=== PATIENT | male | born 1950 | race Caucasian/White ===

== ENCOUNTER 2017-01-03 12:14 | Inpatient (IN) | payer MEDICARE ==
[~2017-01-03] VITALS: Ht 190.5 cm; Wt 120.0 kg
[2017-01-03] VITALS (7 sets, daily range): BP systolic 127–164; BP diastolic 68–83; PULSE 57–75; RESP 14–20; TEMP 96.2–98.1; O2SAT 94–98
[~2017-01-03 12:14] MED LIST: ASPI81 PO; CLOP75 PO; CYCL-36 PO; FOSI10TA4 PO; LORTA5 PO
[2017-01-03] MEDS ORDERED: HYDR-3516 PO (12:40)
[2017-01-03] MEDS ORDERED: LORazepam 2 MG/ML VIAL IV PUSH ONE (13:00)
[2017-01-03 13:30] LABS: AUTOMATED NEUTROPHIL # 5.6 TH/MM3 (1.8-7.7); BASOPHIL # 0.1 TH/MM3 (0-0.2); BASOPHIL % 0.6 % (0.0-2.0); EOSINOPHIL # 0.1 TH/MM3 (0-0.4); EOSINOPHIL % 1.5 % (0.0-4.0); HEMATOCRIT 36.6 % (39.0-51.0); HEMO FLAGS DIFF FINAL; LYMPH % 22.9 % (9.0-44.0); LYMPHOCYTE # 1.9 TH/MM3 (1.0-4.8); MEAN CELL VOLUME 81.2 FL (80.0-100.0); MEAN CORPUSCULAR HEMOGLOBIN 27.3 PG (27.0-34.0); MEAN CORPUSCULAR HGB CONC 33.6 % (32.0-36.0); PLATELET COUNT 334 TH/MM3 (150-450); RED BLOOD COUNT 4.51 MIL/MM3 (4.50-5.90); RED CELL DISTRIBUTION WIDTH 16.1 % (11.6-17.2); WHITE BLOOD COUNT 8.2 TH/MM3 (4.0-11.0)
[2017-01-03 13:40] LABS: APTT (PATIENT) 32.7 SEC (24.3-30.1); PROTHROMBIN TIME - PATIENT 11.2 SEC (9.8-11.6)
--- NOTE | 2017-01-03 13:41 | RADRPT ---
EXAM DATE/TIME: 01/03/2017 12:56 [facility] COMPARISON: No previous studies available for comparison. INDICATIONS : Cough. MEDICAL HISTORY : Carcinoma, renal SURGICAL HISTORY : Coronary artery stent. ENCOUNTER: Initial ACUITY: 1 day PAIN SCORE: 0/10 LOCATION: Bilateral chest FINDINGS: A single AP erect portable view of the chest was obtained and demonstrates a focal masslike area of o pacity in the right cardiophrenic angle. The heart size at the upper limits of normal with no perihil ar edema. The lungs are clear. There is no evidence of an effusion. The bony thorax is otherwise inta ct. CONCLUSION: Focal masslike area of opacity in the right cardiophrenic angle which is nonspecific but may represent a cardiac fat pad. Other mass lesions are not excluded. This could be further evalu ated with CT. Darryl Andre MD on January 03, 2017 at 13:34 Board Certified Radiologist. This report was verified electronically.
[2017-01-03 13:47] LABS: BICARBONATE 29.4 MEQ/L (21.0-32.0); MAGNESIUM 2.3 MG/DL (1.5-2.5); POTASSIUM 4.6 MEQ/L (3.5-5.1)
--- NOTE | 2017-01-03 14:02 | PD ---
HPI Chief Complaint: Eye Problems/Injury Time Seen by Provider: 13:56 Travel History International Travel<30 days: No Contact w/Intl Traveler<30days: No Traveled to known affect area: No History of Present Illness HPI 66-year-old male that presents to the ED for evaluation of blurry vision for the past week. Per patient he is actually had issues with his patient for longer but he hasn't had any severe issues until the past week. Apparently this in ongoing for a couple months but for the past week he's been developing more blurry vision where he states that he cannot really read much. Per patient yesterday history noticing that he could not see from his peripheral vision on the right side on the right eye. He states that he never noted this until yesterday when he had someone next to him and his peripheral site talking to him but he cannot see him and this is when he relies he didn't have any peripheral vision. He states that he has no headache or chest pain. 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 Per patient he is doing homeopathic treatment at this time. He denies taking any blood thinners. He denies any other medical problems. No chest pain or shortness of breath. He has not seen his doctor for this. He does wear glasses any glasses he still has the blurry vision. Today he had an episode where he could not stop shaking on his left side. Mainly on the left arm and leg. He denies losing consciousness or having any urinary or bowel movement issues. Per patient he lasted almost an hour. He is never had anything like that before. No history of seizures. Per patient at today he does have a slight headache that feels like a tension that is about 4 out of 10. Allergy to Lipitor. He denies any recent eye surgery. No other medical problems. Per family member patient does have unsteady gait. PFSH Past Medical History Blood Disorders: No Cancer: Yes (kidney and lung) Cardiovascular Problems: Yes (CAD) High Cholesterol: Yes Diabetes: No Diminished Hearing: No Endocrine: No Hiatal Hernia: Yes Hypertension: Yes Immune Disorder: No Tetanus Vaccination: > 5 Years Past Surgical History Cardiac Surgery: Yes (stents) Neurologic Surgery: Yes (1 kidney r/t ca) Other Surgery: Yes (L SHOULDER) Family History Family Myocardial Infarction: Yes (father IA at age 48) Social History Alcohol Use: Yes (social) Tobacco Use: No Substance Use: No Allergies-Medications (Allergen,Severity, Reaction): Coded Allergies: Lipitor (Verified Allergy, Unknown, 01/03/17) Reported Meds & Prescriptions Reported Meds & Active Scripts Active Reported Hydrocodone-Acetaminophen 5-325 mg Tab 1 Tab PO Q4H PRN Review of Systems General / Constitutional: No: Fever, Chills, Weight Gain, Weight Loss, Other Eyes: Positive: Blurred Vision, Blind Spots, Visual changes, No: Diploplia, Photophobia, Drainage, Redness, Foreign Body Sensation, Pain, Tearing, Blindness , Other HENT: Positive: Headaches, No: Vertigo, Lightheadedness, Sore Throat, Rhinitis , Rhinorrhea, Congestion, Nosebleed, Neck Stiffness, Neck Pain, Masses, Gingival Bleeding, Dental Difficulties, Ear Discharge, Earache, Other Cardiovascular: No: Chest Pain or Discomfort, Palpitations, Irregular Rhythm, Tachycardia, Diaphoresis, Syncope, Dyspnea on exertion, Varicosities, Edema, Cyanosis, Varicosities, Phlebitis, Claudication, Other Respiratory: No: Cough, Shortness of Breath, Wheezing, Sneezing, Orthopnea, Hemoptysis, Stridor, Night Sweats, Pleuritic Pain, Other Gastrointestinal: No: Nausea, Vomiting, Diarrhea, Abdominal Pain, Hematemesis, Hematochezia, Constipation, Changes in Bowel Habits, Indigestion, Dysphagia, Loss of Appetite, Other Genitourinary: No: Urgency, Frequency, Dysuria, Nocturia, Hematuria, Decreased Urinary Output, Oliguria, Hesitancy, Dribbling, Incontinence, Pelvic Pain, Flank Pain, Dyspareunia, Discharge, Dysmenorrhea, Menorrhagia, Metorrhagia, Vaginal Bleeding, Other Musculoskeletal: No: Myalgias, Arthralgias, Limited ROM, Weakness, Cramping, Edema, Pain, Atrophy, Other Skin: No Rash, No Itching, No Dryness, No Lumps, No Hives, No Change in Pigmentation, No Change in nails, No Alopecia, No Lesions, No Breast Lumps, No Breast Tenderness, No Breast Swelling, No Other Neurologic: Positive: Tremor, Ataxia, No: Weakness, Dizziness, Syncope, Focal Abnormalities, Coordination Problem, Headache, Change in Mentation, Slurred Speech, Paresthesia, Incontinence, Seizures, Sensory Disturbance, Other Psychiatric: No: Anxiety, Depression, Suicidal Ideations, Disorder of Thought, Mood Disorder, Substance Abuse, Homicidal Ideation, Other Endocrine: No: Heat Intolerance, Cold Intolerance, Polyuria, Polydipsia, Other Hematologic/Lymphatic: No: Easy Bruising, Lymph Node Enlargement, Other Physical Exam Narrative GENERAL: SKIN: Warm and dry. HEAD: Atraumatic. Normocephalic. EYES: Pupils equal and round 4 mm reactive to light and accommodation.. No scleral icterus. No injection or drainage. EOM intact bilaterally. Patient does have loss of peripheral vision on the right eye noted on the right side. Both upper and lower fry. No tenting noted on the left eye. Ophthalmic exam reveals no sign of upper edema or vessel disease. ENT: No nasal bleeding or discharge. Mucous membranes pink and moist. Tongue is midline. No uvula deviation. NECK: Trachea midline. No JVD. CARDIOVASCULAR: Regular rate and rhythm. No murmurs, S3, S4. RESPIRATORY: No accessory muscle use. Clear to auscultation. Breath sounds equal bilaterally. GASTROINTESTINAL: Abdomen soft, non-tender, nondistended. Hepatic and splenic margins not palpable. MUSCULOSKELETAL: Extremities without clubbing, cyanosis, or edema. No obvious deformities. Patient has full range of motion of the upper extremities. 2+ pulses bilaterally. 5 out of 5 strength bilaterally. Sensation intact bilaterally. NEUROLOGICAL: Awake and alert. No obvious cranial nerve deficits. Motor grossly within normal limits. Five out of 5 muscle strength in the arms and legs. Normal speech. Finger to nose test negative. PSYCHIATRIC: Appropriate mood and affect; insight and judgment normal. Data Data Last Documented VS Vital Signs Date Time Temp Pulse Resp B/P Pulse Ox O2 Delivery O2 Flow Rate FiO2 01/03/17 15:01 57 20 164/83 98 01/03/17 13:48 Room Air 01/03/17 12:16 98.1 Orders Mri Brain W&W/O Contrast (01/03/17 12:59) Complete Blood Count With Diff (01/03/17 12:59) Basic Metabolic Panel (Bmp) (01/03/17 12:59) Prothrombin Time / Inr (Pt) (01/03/17 12:59) Act Partial Throm Time (Ptt) (01/03/17 12:59) Magnesium (Mg) (01/03/17 12:59) Chest, Single Ap (01/03/17 12:59) Iv Access Insert/Monitor (01/03/17 12:59) Ecg Monitoring (01/03/17 12:59) Oximetry (01/03/17 12:59) Lorazepam Inj (Ativan Inj) (01/03/17 13:00) Mra Brain W/O Contrast (Cow) (01/03/17 ) Gadodiamide Pf Inj (Omniscan Pf Inj) (01/03/17 15:10) Consult Medical Oncology (01/03/17 ) Consult Radiation Oncology (01/03/17 ) Dexamethasone Inj (Decadron Inj) (01/03/17 15:45) Levetiracetam 1000 Mg Inj (Keppra 1000 M (01/03/17 15:45) Admit Order (Ed Use Only) (01/03/17 15:50) Labs Laboratory Tests Test 01/03/17 13:00 White Blood Count 8.2 TH/MM3 Red Blood Count 4.51 MIL/MM3 Hemoglobin 12.3 GM/DL Hematocrit 36.6 % Mean Corpuscular Volume 81.2 FL Mean Corpuscular Hemoglobin 27.3 PG Mean Corpuscular Hemoglobin 33.6 % Concent Red Cell Distribution Width 16.1 % Platelet Count 334 TH/MM3 Mean Platelet Volume 6.4 FL Neutrophils (%) (Auto) 68.0 % Lymphocytes (%) (Auto) 22.9 % Monocytes (%) (Auto) 7.0 % Eosinophils (%) (Auto) 1.5 % Basophils (%) (Auto) 0.6 % Neutrophils # (Auto) 5.6 TH/MM3 Lymphocytes # (Auto) 1.9 TH/MM3 Monocytes # (Auto) 0.6 TH/MM3 Eosinophils # (Auto) 0.1 TH/MM3 Basophils # (Auto) 0.1 TH/MM3 CBC Comment DIFF FINAL Differential Comment Prothrombin Time 11.2 SEC Prothromb Time International 1.0 RATIO Ratio Activated Partial 32.7 SEC Thromboplast Time Sodium Level 137 MEQ/L Potassium Level 4.6 MEQ/L Chloride Level 102 MEQ/L Carbon Dioxide Level 29.4 MEQ/L Anion Gap 6 MEQ/L Blood Urea Nitrogen 16 MG/DL Creatinine 1.41 MG/DL Estimat Glomerular Filtration 50 ML/MIN Rate Random Glucose 98 MG/DL Calcium Level 9.2 MG/DL Magnesium Level 2.3 MG/DL MDM Medical Decision Making Medical Screen Exam Complete: Yes Emergency Medical Condition: Yes Medical Record Reviewed: Yes Interpretation(s) CBC & BMP Diagram 01/03/17 13:00 Last Impressions Chest X-Ray 01/03/17 1259 Signed Impressions: Service Date/Time: Tuesday, January 03, 2017 12:56 - CONCLUSION: Focal masslike area of opacity in the right cardiophrenic angle which is nonspecific but may represent a cardiac fat pad. Other mass lesions are not excluded. This could be further evaluated with CT. Darryl Andre MD Brain MRI 01/03/17 1259 Signed Impressions: Service Date/Time: Tuesday, January 03, 2017 14:23 - CONCLUSION: 4 metastatic lesions as described. Darryl Andre MD Head Magnetic Resonance Angiography 01/03/17 0000 Signed Impressions: Service Date/Time: Tuesday, January 03, 2017 14:23 - CONCLUSION: 1. Negative examination. Ciaran Hassan MD Differential Diagnosis Metastasis versus brain tumor versus stroke versus peripheral vision loss versus ophthalmic disease versus seizure versus tremor versus cancer versus electron abnormality Narrative Course 66-year-old male that presents to the ED for evaluation of blurry vision and tremor. Patient was properly examined and was found to have signs and symptoms which appear to be concerning for metastases to the brain causing the blurry vision. Case was discussed in my attending who agrees with plan. MRI is recommended. Labs were drawn. Patient was given Ativan before going to MRI secondary to claustrophobia. Labs and imaging showed for metastases to the brain. Case was discussed in my attending who came with me and evaluated the patient and recommends admission for oncology workup. This was discussed with the family and patient both agree with this admission. Residents were paged and they agreed to admission. Dr. Watson was also contacted by my attending. Procedures EKG Prior to Arrival: No Diagnosis Primary Impression: Brain metastasis Additional Impression: Seizure disorder Admitting Information Admitting Physician Requests: Admit Emiliano Wilson Jan 03, 2017 14:02
[2017-01-03] MEDS ORDERED: GADODIAMIDE PF 287 MG/ML 20 ML VIAL (for RAD MRI) IV ONE (15:10)
--- NOTE | 2017-01-03 15:12 | RADRPT ---
EXAM DATE/TIME: 01/03/2017 14:23 [facility] COMPARISON: No previous studies available for comparison. INDICATIONS : Left arm jerking. Blurry vision. MEDICAL HISTORY : Hypertension. Metastatic, lung. Renal ca. SURGICAL HISTORY : Nephrectomy, left. Rotator cuff surgery. ENCOUNTER: Initial ACUITY: 3 day PAIN SCORE: 0/10 LOCATION: head Please note a normal MRA of the brain does not entirely exclude the possibility of a small aneurysm, nor the possibility of distal intracranial vessel disease. TECHNIQUE: 3D time of flight MRA was performed. Source images, multiplanar STS MIP, and 3D volume MIP reconstru ctions were reviewed. FINDINGS: There is excellent visualization of the major intracranial arteries out to the second-order branch ve ssels. There is no evidence for aneurysm, vessel truncation or stenosis, and no evidence for vascula r malformation. CONCLUSION: 1. Negative examination. Ciaran Hassan MD on January 03, 2017 at 15:09 Board Certified Radiologist. This report was verified electronically.
--- NOTE | 2017-01-03 15:36 | RADRPT ---
EXAM DATE/TIME: 01/03/2017 14:23 [facility] COMPARISON: CHEST SINGLE AP, January 03, 2017, 12:56. INDICATIONS : Left arm jerking. Blurry vision. CONTRAST: 20 cc Omniscan (gadodiamide) IV MEDICAL HISTORY : Metastatic disease. Hypertension. Renal cell carcinoma. SURGICAL HISTORY : Nephrectomy, left. Rotator cuff surgery. ENCOUNTER: Initial ACUITY: 2 day PAIN SCORE: 0/10 LOCATION: head TECHNIQUE: Multiplanar, multisequence MRI of the brain was performed both prior to and following the administrat ion of paramagnetic contrast. FINDINGS: CEREBRUM: The ventricles are normal for age. There is no evidence of midline shift or hemorrhage. There are 4 r ing-enhancing masses present. The largest is in the lower left occipital lobe and measures up to appr oximately 2.4 x 1.6 cm in diameter with moderate surrounding edema. There 2 smaller ring-enhancing ma sses one in each frontal lobe. These measure approximately 10 x 8 mm on the left and 3 x 4 mm on the right. There is mild surrounding edema. The fourth lesion is located in the high posterior parietal l obe and measures approximately 7 x 6 mm. No extraaxial fluid collections are seen. The pituitary gla nd and suprasellar cistern are normal in configuration. WHITE MATTER: High signal edema is noted surrounding the metastatic lesions. POSTERIOR FOSSA: The cerebellum and brainstem are intact. The 4th ventricle is midline. The cerebellopontine angle is unremarkable. The cerebellar tonsils are normal in position. DIFFUSION IMAGING: No focal areas of restricted diffusion are seen. No evidence of acute infarction. EXTRACRANIAL: The visualized portions of the orbits and paranasal sinuses are unremarkable. POST-CONTRAST: No abnormal areas of parenchymal or dural enhancement. No evidence of blood-brain barrier breakdown. CONCLUSION: 4 metastatic lesions as described. Darryl Andre MD on January 03, 2017 at 15:29 Board Certified Radiologist. This report was verified electronically.
[2017-01-03] MEDS ORDERED: levETIRAcetam 1000 MG INJ 100 ML IV ONE (15:45)
[2017-01-03] MEDS ORDERED: DEXAMETHASONE SOD PHOS 20 MG/5 ML VIAL IV PUSH ONE (15:45)
--- NOTE | 2017-01-03 15:50 | PD ---
Data Data Last Documented VS Vital Signs Date Time Temp Pulse Resp B/P Pulse Ox O2 Delivery O2 Flow Rate FiO2 01/03/17 15:01 57 20 164/83 98 01/03/17 13:48 Room Air 01/03/17 12:16 98.1 Orders Mri Brain W&W/O Contrast (01/03/17 12:59) Complete Blood Count With Diff (01/03/17 12:59) Basic Metabolic Panel (Bmp) (01/03/17 12:59) Prothrombin Time / Inr (Pt) (01/03/17 12:59) Act Partial Throm Time (Ptt) (01/03/17 12:59) Magnesium (Mg) (01/03/17 12:59) Chest, Single Ap (01/03/17 12:59) Iv Access Insert/Monitor (01/03/17 12:59) Ecg Monitoring (01/03/17 12:59) Oximetry (01/03/17 12:59) Lorazepam Inj (Ativan Inj) (01/03/17 13:00) Mra Brain W/O Contrast (Cow) (01/03/17 ) Gadodiamide Pf Inj (Omniscan Pf Inj) (01/03/17 15:10) Consult Medical Oncology (01/03/17 ) Consult Radiation Oncology (01/03/17 ) Dexamethasone Inj (Decadron Inj) (01/03/17 15:45) Levetiracetam 1000 Mg Inj (Keppra 1000 M (01/03/17 15:45) Labs Laboratory Tests Test 01/03/17 13:00 White Blood Count 8.2 TH/MM3 Red Blood Count 4.51 MIL/MM3 Hemoglobin 12.3 GM/DL Hematocrit 36.6 % Mean Corpuscular Volume 81.2 FL Mean Corpuscular Hemoglobin 27.3 PG Mean Corpuscular Hemoglobin 33.6 % Concent Red Cell Distribution Width 16.1 % Platelet Count 334 TH/MM3 Mean Platelet Volume 6.4 FL Neutrophils (%) (Auto) 68.0 % Lymphocytes (%) (Auto) 22.9 % Monocytes (%) (Auto) 7.0 % Eosinophils (%) (Auto) 1.5 % Basophils (%) (Auto) 0.6 % Neutrophils # (Auto) 5.6 TH/MM3 Lymphocytes # (Auto) 1.9 TH/MM3 Monocytes # (Auto) 0.6 TH/MM3 Eosinophils # (Auto) 0.1 TH/MM3 Basophils # (Auto) 0.1 TH/MM3 CBC Comment DIFF FINAL Differential Comment Prothrombin Time 11.2 SEC Prothromb Time International 1.0 RATIO Ratio Activated Partial 32.7 SEC Thromboplast Time Sodium Level 137 MEQ/L Potassium Level 4.6 MEQ/L Chloride Level 102 MEQ/L Carbon Dioxide Level 29.4 MEQ/L Anion Gap 6 MEQ/L Blood Urea Nitrogen 16 MG/DL Creatinine 1.41 MG/DL Estimat Glomerular Filtration 50 ML/MIN Rate Random Glucose 98 MG/DL Calcium Level 9.2 MG/DL Magnesium Level 2.3 MG/DL MDM Supervised Visit with YOUSUF: Yes Narrative Course I, Dr. Oliver, have reviewed the advance practice practioner's documentation and am in agreement, met with the patient face to face, made the diagnosis, and the medical decision making was done by me. *My assessment and Findings: 66-year-old male with history of renal adenocarcinoma with metastases to the lung not undergoing any treatment here with neuro symptoms, right sided visual field loss and questionable seizure activity this morning. Patient describes a minute long spell with a left-sided his body was uncontrollably shaking in a rhythmic type fashion. Patient was conscious for this. No history of seizures. On neurologic examination patient has a right lateral hemianopsia. Otherwise neuro intact. Exam and symptoms are very concerning for intracranial metastases, with focal seizure. Laboratory workup unremarkable. Chest x-ray negative. Unfortunately the MRI and MRA of the brain showed multiple intracranial metastases with surrounding edema. These are likely the cause of patient's symptoms. He was given 1 g of Keppra, 10 mg Decadron. I spoke with Sam Maurice, and residents for admission and further management. Lucrecia Oliver MD Jan 03, 2017 15:50
--- NOTE | 2017-01-03 16:26 | HHI.HP ---
[facility] Service Family Medicine Primary Care Physician Esther Forrester MD Admission Diagnosis intracranial metastases with focal seizure Diagnoses: International Travel<30 Days: No Contact w/Intl Traveler<30days: No Known Affected Area: No History of Present Illness Pt is a 66 year old male with history of renal cell carcinoma with known lung metastasis, presenting due to visual changes. Pt reports that he has been having visual changes for over 6 months. Over the past week his vision has been becoming progressively worse, his vision has becoming more blurry and he is unable to see peripherally from his right eye.This morning he experienced a seizure and had rhythmic jerking of his left upper and lower extremities. This lasted for less than one minute. He denies loss of bowel or bladder incontinence, confusion. He was able to walk normally following seizure. He was diagnosed with renal cell carcinoma about 3 years in 6 months ago. He had his left kidney removed 3 years ago. After kidney was removed he was found to have lung metastasis. He is currently being followed by Dr. Cardoso, oncology, Dr. Weiss, rheumatology, Dr. Nguyen, radiation oncology. He has also been seeing a homeopathic doctor. He is interested in learning about all available treatment options. (Vero De La Garza MD R2) Review of Systems Constitutional: DENIES: Fever, Chills Eyes: COMPLAINS OF: Blurred vision Respiratory: DENIES: Cough Gastrointestinal: COMPLAINS OF: Constipation, DENIES: Abdominal pain, Diarrhea , Nausea, Vomiting Musculoskeletal: DENIES: Joint pain, Muscle aches Neurologic: COMPLAINS OF: Headache, Seizures Psychiatric: DENIES: Confusion (Vero De La Garza MD R2) Past Family Social History Past Medical History Renal Cell Carcinoma Was previously on high cholesterol medication and antihypertensives, but was taken off Past Surgical History Left nephrectomy Left rotator cough surgery Cardiac stents place on 2 occasions, 4-5 stents Reported Medications Reported Meds & Active Scripts Active Reported Hydrocodone-Acetaminophen 5-325 mg Tab 1 Tab PO Q4H PRN (Vero De La Garza MD R2) Allergies: Coded Allergies: Lipitor (Verified Allergy, Unknown, 01/03/17) Active Ordered Medications Inpatient Medications Acetaminophen/ Hydrocodone Bitart (Joppa 5-325 Mg) 1 tab Q4H PRN PO PAIN; Start 01/03/17 at 17:00 Dexamethasone Sodium Phosphate 10 mg 10 mg ONCE ONCE IV PUSH Last administered on 01/03/17 16:02; Start 01/03/17 at 15:45; Stop 01/03/17 at 15:46 ; Status DC Levetriacetam (Keppra 1000 Mg Inj) 100 ml @ 400 mls/hr BOLUS ONCE IV Last administered on 01/03/17 16:13; Start 01/03/17 at 15:45; Stop 01/03/17 at 15:59 ; Status DC Lorazepam (Ativan Inj) 2 mg ONCE ONCE IV PUSH Last administered on 01/03/17 14:15; Start 01/03/17 at 13:00; Stop 01/03/17 at 13:03; Status DC Family History Mother: Late 70s, Alzheimer's Father: at 48, [place] Social History 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 SKIN: No rashes, ecchymoses or lesions. Cool and dry. HEAD: Atraumatic. Normocephalic. No temporal or scalp tenderness. EYES: Pupils equal round and reactive. Extraocular motions intact. No scleral icterus. No injection or drainage. ENT: Nose without bleeding, purulent drainage or septal hematoma. Throat without erythema, tonsillar hypertrophy or exudate. Uvula midline. Airway patent. NECK: Trachea midline. No JVD or lymphadenopathy. Supple, nontender, no meningeal signs. CARDIOVASCULAR: Regular rate and rhythm without murmurs, gallops, or rubs. RESPIRATORY: Clear to auscultation. Breath sounds equal bilaterally. No wheezes , rales, or rhonchi. GASTROINTESTINAL: Abdomen soft, non-tender, nondistended. No hepato-splenomegaly , or palpable masses. No guarding. MUSCULOSKELETAL: Extremities without clubbing, cyanosis, or edema. No joint tenderness, effusion, or edema noted. No calf tenderness. Negative Homans sign bilaterally. NEUROLOGICAL: Awake and alert. Right hemianopsia. Motor and sensory grossly within normal limits. 5 out of 5 strength of right upper extremity, 4 out of 5 strength of left upper extremity, 4 out of 5 strength of left lower extremity. Normal speech. Patient is with decreased hearing bilaterally Laboratory Laboratory Tests Test 01/03/17 13:00 White Blood Count 8.2 Red Blood Count 4.51 Hemoglobin 12.3 Hematocrit 36.6 Mean Corpuscular Volume 81.2 Mean Corpuscular Hemoglobin 27.3 Mean Corpuscular Hemoglobin 33.6 Concent Red Cell Distribution Width 16.1 Platelet Count 334 Mean Platelet Volume 6.4 Neutrophils (%) (Auto) 68.0 Lymphocytes (%) (Auto) 22.9 Monocytes (%) (Auto) 7.0 Eosinophils (%) (Auto) 1.5 Basophils (%) (Auto) 0.6 Neutrophils # (Auto) 5.6 Lymphocytes # (Auto) 1.9 Monocytes # (Auto) 0.6 Eosinophils # (Auto) 0.1 Basophils # (Auto) 0.1 CBC Comment DIFF FINAL Differential Comment Prothrombin Time 11.2 Prothromb Time International 1.0 Ratio Activated Partial 32.7 Thromboplast Time Sodium Level 137 Potassium Level 4.6 Chloride Level 102 Carbon Dioxide Level 29.4 Anion Gap 6 Blood Urea Nitrogen 16 Creatinine 1.41 Estimat Glomerular Filtration 50 Rate Random Glucose 98 Calcium Level 9.2 Magnesium Level 2.3 (Vero De La Garza MD R2) Result Diagram: 01/03/17 1300 01/03/17 1300 Imaging Last 24 hours Impressions Chest X-Ray 01/03/17 1259 Signed Impressions: Service Date/Time: Tuesday, January 03, 2017 12:56 - CONCLUSION: Focal masslike area of opacity in the right cardiophrenic angle which is nonspecific but may represent a cardiac fat pad. Other mass lesions are not excluded. This could be further evaluated with CT. Darryl Andre MD Brain MRI 01/03/17 1259 Signed Impressions: Service Date/Time: Tuesday, January 03, 2017 14:23 - CONCLUSION: 4 metastatic lesions as described. Darryl Andre MD Head Magnetic Resonance Angiography 01/03/17 0000 Signed Impressions: Service Date/Time: [place], January 03, 2017 14:23 - CONCLUSION: 1. Negative examination. Ciaran Hassan MD (Vero De La Garza MD R2) Assessment and Plan Assessment and Plan Pt is a 66 year old male with history of renal cell carcinoma with known lung metastasis, presenting due to visual changes. Code Status Full Discussed Condition With wdw Dr. Bonner, Dr. Fraire, Dr. Lyons (Vero De La Garza MD R2) Attending Attestation The patient has been seen and examined. The chart and all resident notes have been reviewed. I agree that inpatient care is appropriate and that a two midnight stay is expected for the reasons documented in the resident history and physical. I have discussed this with the resident and certify the resident s order for inpatient admission. All systems reviewed and negative except as stated in history of present illness. (Cheryl Bonner MD) Problem List: (1) Brain metastasis Status: Acute Plan: Patient with history of renal cell carcinoma with known lung metastasis, now found to have brain metastasis. -Nathan MRI shows 4 metastatic lesions -Patient received 10 mg of Decadron in the ED -4 mg of Decadron IV Q6hrs -Oncology, radiation oncology, palliative care has been consulted, appreciate recommendations Imaging: Brain MRI: Four metastatic lesions: The largest in the lower left occipital lobe measures 2.41.6 cm with moderate turning edema. 2 smaller lesions in the frontal lobe measuring 10 x 8 mm and 3 x 4 mm with mild surrounding edema. The fourth lesion is located in the parietal lobe and is 4 x 6 mm. Head MRA 01/03/17: Negative examination (2) Seizure disorder Status: Acute Plan: Patient reports having a seizure earlier today, he has no history of seizure disorder. Likely due to newly diagnosed metastatic lesions to the brain and surrounding edema. -Patient was given Keppra 1000 mg IV x1 in the ED -Neurology has been consulted, appreciate recommendations -Will start Keppra 500mg po BID -Seizure precautions -Neuro checks Q4hrs -EEG ordered (3) FEN/PPX Status: Acute Plan: Fluids: None Electrolytes: Within normal limits, continue to monitor Nutrition: Regular diet (4) Contraindication to deep vein thrombosis (DVT) prophylaxis Status: Acute Plan: DVT prophylaxis contraindicated due to metastatic brain lesions having high likelihood of bleeding, per pts Oncologist. (Vero De La Garza MD R2) Physician Certification 2 Midnight Certification Type: Admission for Inpatient Services Order for Inpatient Services The services are ordered in accordance with Medicare regulations or non- Medicare payer requirements, as applicable. In the case of services not specified as inpatient-only, they are appropriately provided as inpatient services in accordance with the 2-midnight benchmark. Estimated LOS (days): 2 2 days is the estimated time the patient will need to remain in the hospital, assuming treatment plan goals are met and no additional complications. Post-Hospital Plan: Not yet determined (Vero De La Garza MD R2) Vero De La Garza MD R2 Jan 03, 2017 16:26 Cheryl Bonner MD Jan 04, 2017 16:25
[2017-01-03] MEDS ORDERED: ONDANSETRON HCL 4 MG/2 ML VIAL IV PRN (17:00)
[2017-01-03] MEDS ORDERED: SODIUM CHLORIDE 0.9% FLUSH 5 ML FLUSH IVF PRN (17:00)
[2017-01-03] MEDS ORDERED: cloNIDine HCL 0.1 MG TAB PO PRN (17:30)
[2017-01-03] MEDS ORDERED: hydrALAZINE HCL 20 MG/ML VIAL IV PRN (17:30)
[2017-01-03] MEDS ORDERED: LORazepam 2 MG/ML VIAL IV PRN (17:30)
[2017-01-03] MEDS: SODIUM CHLORIDE 0.9% FLUSH 5 ML FLUSH IVF SCH (21:00)
[2017-01-04] MEDS: DEXAMETHASONE SOD PHOS 4 MG/ML VIAL IV PUSH SCH ×4 (02:42→16:37)
[2017-01-04 02:44] VITALS: BP 131/75; PULSE 69; RESP 16; TEMP 96.1; O2SAT 93
[2017-01-04 04:00] VITALS: BP 130/73; PULSE 68; RESP 15; TEMP 95.9; O2SAT 94
--- NOTE | 2017-01-04 05:54 | MB ---
cc: DANYELLE MARIE MD, VIVIANE M. MD DATE OF CONSULTATION 01/03/2017. PRIMARY CARE PHYSICIAN Dr. Esther Forrester ONCOLOGIC DIAGNOSIS Metastatic renal cell carcinoma. REASON FOR CONSULTATION Patient with newly discovered multiple brain masses most consistent with metastatic renal cell carcinoma. TREATMENT HISTORY TO DATE 1. Initial diagnosis established in August of 2013. 2. Underwent a radical nephrectomy in December of 2013. 3. He has had evidence of progressive metastatic disease to the lungs. He declined systemic therapy. CURRENT DISEASE STATUS: Clinical / PATHOLOGIC STAGE: T3a Nx M1, Stage IV CHIEF COMPLAINT One week history of difficulty reading due to visual field deficit; blindness along the right lateral visual field. HISTORY OF PRESENT ILLNESS Mr. Kaminski is a 66-year-old male who is well-known to me since his initial referral to mt in 2012. He was initially referred to mt for evaluation of a microcytic anemia. Extensive evaluation including bone marrow biopsy revealed pathologic findings concerning for a myeloproliferative neoplasm. Further workup including imaging studies of the abdomen revealed a mass involving the left kidney. The patient subsequently underwent surgical resection of a renal mass which turned out to be a renal cell carcinoma. When the renal mass was removed, his microcytic anemia resolved. Since undergoing surgery, he has undergone serial restaging imaging scans which have revealed progressive enlargement of pulmonary nodules which, though not biopsied, are consistent with metastatic disease. The patient has been recommended palliative systemic therapy with Votrient but has declined in favor of observation. The patient has, however, been seeking out alternative medicine practitioners and had been on various treatments including holistic medicine and homeopathic medicines. He was last seen by me three or four months ago and at the time he was found to have an enlarging mass involving his right lung abutting his right heart. He was recommended palliative radiation but I think he declined that as well. He called my office earlier this morning reporting neurologic deficits and in particular visual field deficit and was advised to come in to the emergency department. Imaging studies performed revealed multiple brain lesions associated with vasogenic edema, the lesions involving the left occipital lobe, frontal lobe and right tubal cortex. PAST MEDICAL HISTORY 1. Metastatic renal cell carcinoma. 2. Hypertension. 3. Coronary artery disease. 4. Gastroesophageal reflux disease. 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 6. Spinal stenosis. 7. Osteoarthritis. PAST SURGICAL HISTORY 1. Bone marrow biopsy and aspiration. 2. Colonoscopy. 3. EGD. 4. Intracoronary stent placement 5. Left rotator cuff surgery. 6. Left radical nephrectomy. 7. Arterial embolization of the left kidney prior to resection. FAMILY HISTORY Parents are both . Father at 48 of coronary artery disease. Mother at the age of 85 of unknown cause. SOCIAL HISTORY The patient , lives at home with his . 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 He is a Yazidism. He denies tobacco, alcohol or drug abuse. ALLERGIES LIPITOR. INPATIENT MEDICATIONS 1. Keppra 500 mg p.o. q. 12 hours. 2. Dexamethasone 4 mg IV q. 6 hours. 3. Hydrocodone/Tylenol 5/325 mg tablet once every 4 hours. 4. Zofran 4 mg IV q. 6 hours. 5. Ativan 10 mg IV q. 2 hours as needed for seizure. REVIEW OF SYSTEMS A 13-point review of systems are obtained. The following are the pertinent positives: Constitutional: The patient reports having had recent fatigue, reports appetite has been good, denies fevers, chills or night sweats. HEENT: He denies headaches. Reports visual field loss along the right lateral visual field. Denies difficulty swallowing, hemoptysis, epistaxis or changes in hearing. Respiratory: Denies difficulty breathing, cough or hemoptysis. Cardiovascular: Denies angina-like chest pain, PND, orthopnea GI: Denies nausea, vomiting, diarrhea, hematochezia, melena. : No complaints. Musculoskeletal: No complaints. PHYSICAL EXAMINATION Vital Signs: Temperature 98.1 degrees Fahrenheit, heart rate 69 beats/minute, respiratory rate 20, blood pressure 132/74, O2 sats 97% on room air. General Appearance: Mr. Kaminski is a pleasant middle-aged male. He is tall and heavy-set. He is sitting up in bed. He appears to be somewhat drowsy. His is at bedside. HEENT: Head atraumatic, normocephalic, conjunctivae are mildly pale. Sclerae anicteric. EOMI, PERRLA. Oral exam - no pharyngeal erythema. Neck Exam: No palpable cervical or supraclavicular adenopathy. Respiratory Exam: There is air movement bilaterally. Clear breath sounds. Cardiovascular Exam: Regular rate and rhythm, S1-S2. No added murmurs, rubs or gallops. Abdominal Exam: Protuberant belly, soft, nontender. Left-sided laparotomy surgical incision noted. No masses noted. Lower Extremities: No pretibial edema. No calf tenderness. SURVEY METHODOLOGIST: No focal motor deficits. He does report having, blindness along the right lateral visual field. LABORATORY FINDINGS Blood work dated 01/03/2017 - WBC count 8.2, hemoglobin 12.3 gm/dl, hematocrit 36.6%, platelet count 334. Absolute neutrophil count 5.6. Chemistries: Sodium 137, potassium 4.6, chloride 102, bicarb 29.4, BUN 16, creatinine 1.4, random glucose 98, calcium 9.2, magnesium 3.2. IMAGING STUDIES MRI of the brain dated 01/03/2017 reveals four metastatic lesions. These lesions involve the left occipital lobe measuring 2.4 x 1.6 cm. Two smaller ring-enhancing lesions are noted, one in each of the frontal lobes, left and right. These measured 8 x 10 mm and 3 x 4 mm respectively. Additionally, a lesion is noted high in the posterior parietal lobe measuring 7 x 6 mm. ASSESSMENT Mr. Kaminski is a 66-year-old male whom I have known since 2012. He was initially referred to me for evaluation of a microcytic anemia which turned out to be a paraneoplastic syndrome secondary to his renal cell carcinoma. The renal cell carcinoma was a large mass involving his left kidney. There was an initial delay between the time of diagnosis of the renal cell carcinoma and eventual dissection because at presentation his hemoglobin was less than 7 gm/dl and it took us quite some time to have his hemoglobin and hematocrit increased to the point where surgery could be safely performed. Mr. Kaminski is a steadfast Yazidism and declined any transfusional support in order to expedite his surgery. In the spring he eventually underwent surgical resection and this was some 5 months after he had his initial mass discovered. After resection of the primary renal mass, his microcytic anemia resolved completely. He has since then, however, had restaging imaging scans which have indicated progression of pulmonary nodules which, though have not been biopsied, are most consistent with metastatic lesions. At various points in the past two years, I have brought up the options of treating Mr. Kaminski with palliative systemic therapy; over the past several years there have been multiple options for meaningful therapeutic interventions with agents such as multi-kinase inhibitors, immunotherapy, anti-angiogenic agents and mTOR inhibitors. He declined any and all treatment interventions in favor of going on holistic medicine and homeopathic medication. He told me he would prefer not to deal with the side effects associated with conventional treatments which he reportedly read up on. He chose instead to see me periodically and to go over scans. At our last meeting about 3 months ago I had recommended he be evaluated by Radiation Oncology for radiation to a particularly large pulmonary metastasis which was encroaching on the right atrium. He met with Radiation Oncology and declined this as well. He now presents to the hospital with several metastatic lesions in the brain, the largest of which is resulting in cortical blindness with a right lateral visual field deficit. He has met with Dr. Nguyen of Radiation Oncology and has discussed the role of palliative radiation. He tells me he is still considering this. I did have a conversation with the patient and his at bedside today. I explained to them that their options at this point are limited to palliative radiation (either whole-brain radiation or stereotactic radiation). He is considering some form of radiation, but beyond that tells me he is not certain what he would like to do. I offered him palliative systemic therapy but I have explained to him that conventional palliative systemic therapy will have little utility in controlling intracranial disease and this is because of poor penetrance of the blood-brain barrier. Mr. Kaminski confides in me that he is still considering homeopathic therapeutic interventions because he feels this "suits him better". I will meet with the patient and his again for counseling purposes. I have an intuition that he and his will likely decline conventional systemic therapeutic options and will either elect to go on Hospice or homeopathic treatment interventions after making a decision about whether or not he undergoes radiation to the brain. In the meantime, I do agree with dexamethasone and Keppra. MD ANDRES Cowatr/FRED /9:16 PM /5:15 AM BANDAR
[2017-01-04 06:54] LABS: AUTOMATED NEUTROPHIL # 7.4 TH/MM3 (1.8-7.7); BASOPHIL % 0.2 % (0.0-2.0); HEMATOCRIT 36.7 % (39.0-51.0); HEMO FLAGS DIFF FINAL; LYMPHOCYTE # 0.8 TH/MM3 (1.0-4.8); MEAN CELL VOLUME 80.9 FL (80.0-100.0); MEAN CORPUSCULAR HGB CONC 33.3 % (32.0-36.0); MONO % 1.1 % (0.0-8.0); NEUT % 88.7 % (16.0-70.0); PLATELET COUNT 341 TH/MM3 (150-450); RED BLOOD COUNT 4.54 MIL/MM3 (4.50-5.90); RED CELL DISTRIBUTION WIDTH 15.9 % (11.6-17.2); WHITE BLOOD COUNT 8.4 TH/MM3 (4.0-11.0)
[2017-01-04 07:25] LABS: BICARBONATE 25.9 MEQ/L (21.0-32.0); POTASSIUM 4.4 MEQ/L (3.5-5.1)
--- NOTE | 2017-01-04 07:56 | PD.ONC.PN ---
Subjective Subjective Remarks R lateral visual field defect persists, pt thinks he is able to see a little more. Reports a head ache this AM. No other complaints. Tells me he wants to go home. Objective Data Date Time Temp Pulse Resp B/P Pulse Ox O2 Delivery O2 Flow Rate FiO2 01/04/17 04:00 95.9 68 15 130/73 94 01/04/17 02:44 96.1 69 16 131/75 93 01/03/17 21:01 96.2 68 16 127/78 94 01/03/17 18:19 69 20 132/74 97 01/03/17 16:08 62 16 144/82 98 01/03/17 15:01 57 20 164/83 98 01/03/17 13:48 98 Room Air 01/03/17 12:35 65 16 138/68 96 01/03/17 12:16 98.1 75 14 135/68 97 Room Air Result Diagram: 01/04/17 0607 01/04/17 0607 Laboratory Results Laboratory Tests Test 01/03/17 01/04/17 13:00 06:07 White Blood Count 8.2 TH/MM3 8.4 TH/MM3 Red Blood Count 4.51 MIL/MM3 4.54 MIL/MM3 Hemoglobin 12.3 GM/DL 12.2 GM/DL Hematocrit 36.6 % 36.7 % Mean Corpuscular Volume 81.2 FL 80.9 FL Mean Corpuscular Hemoglobin 27.3 PG 27.0 PG Mean Corpuscular Hemoglobin 33.6 % 33.3 % Concent Red Cell Distribution Width 16.1 % 15.9 % Platelet Count 334 TH/MM3 341 TH/MM3 Mean Platelet Volume 6.4 FL 6.5 FL Neutrophils (%) (Auto) 68.0 % 88.7 % Lymphocytes (%) (Auto) 22.9 % 10.0 % Monocytes (%) (Auto) 7.0 % 1.1 % Eosinophils (%) (Auto) 1.5 % 0.0 % Basophils (%) (Auto) 0.6 % 0.2 % Neutrophils # (Auto) 5.6 TH/MM3 7.4 TH/MM3 Lymphocytes # (Auto) 1.9 TH/MM3 0.8 TH/MM3 Monocytes # (Auto) 0.6 TH/MM3 0.1 TH/MM3 Eosinophils # (Auto) 0.1 TH/MM3 0.0 TH/MM3 Basophils # (Auto) 0.1 TH/MM3 0.0 TH/MM3 CBC Comment DIFF FINAL DIFF FINAL Differential Comment Prothrombin Time 11.2 SEC Prothromb Time International 1.0 RATIO Ratio Activated Partial 32.7 SEC Thromboplast Time Sodium Level 137 MEQ/L 136 MEQ/L Potassium Level 4.6 MEQ/L 4.4 MEQ/L Chloride Level 102 MEQ/L 102 MEQ/L Carbon Dioxide Level 29.4 MEQ/L 25.9 MEQ/L Anion Gap 6 MEQ/L 8 MEQ/L Blood Urea Nitrogen 16 MG/DL 17 MG/DL Creatinine 1.41 MG/DL 1.33 MG/DL Estimat Glomerular Filtration 50 ML/MIN 54 ML/MIN Rate Random Glucose 98 MG/DL 142 MG/DL Calcium Level 9.2 MG/DL 9.4 MG/DL Magnesium Level 2.3 MG/DL Imaging Studies Last 24 hours Impressions Chest X-Ray 01/03/17 1259 Signed Impressions: Service Date/Time: Tuesday, January 03, 2017 12:56 - CONCLUSION: Focal masslike area of opacity in the right cardiophrenic angle which is nonspecific but may represent a cardiac fat pad. Other mass lesions are not excluded. This could be further evaluated with CT. Darryl Andre MD Brain MRI 01/03/17 1259 Signed Impressions: Service Date/Time: Tuesday, January 03, 2017 14:23 - CONCLUSION: 4 metastatic lesions as described. Darryl Andre MD Administered Medications Medications (Trade) Dose Ordered Sig/Simran Route PRN Reason Start Time Stop Time Status Last Admin Dose Admin Dexamethasone Sodium Phosphate (Decadron Inj) 4 mg Q6H IV PUSH 01/03/17 22:00 01/04/17 02:42 Objective Remarks General Appearance: Mr. Kaminski is a pleasant middle-aged male. He is tall and heavy-set. He is sitting up in bed. He appears to be somewhat drowsy. His is at bedside. HEENT: Head atraumatic, normocephalic, conjunctivae are mildly pale. Sclerae anicteric. EOMI, PERRLA. Oral exam - no pharyngeal erythema. Neck Exam: No palpable cervical or supraclavicular adenopathy. Respiratory Exam: There is air movement bilaterally. Clear breath sounds. Cardiovascular Exam: Regular rate and rhythm, S1-S2. No added murmurs, rubs or gallops. Abdominal Exam: Protuberant belly, soft, nontender. Left-sided laparotomy surgical incision noted. No masses noted. Lower Extremities: No pretibial edema. No calf tenderness. ACLS SPECIALIST: No focal motor deficits. He does report having, blindness along the right lateral visual field. Assessment/Plan Assessment 66 yr old male with a diagnosis of metastatic renal cell ca, now with newly discovered symptomatic brain mets (causing visual field deficits; cortical blindness). He also has significant thoracic metastatic disease burden. Has categorically declined systemic therapeutic interventions over the past 2-3 years. Plan 1. Metastatic renal cell carcinoma: He is being evaluated by Rad Onc for palliative Whole brain RT vs. Stereotactic RT to the symptomatic brain mets. I talked to the patient regarding his disease, prognosis and treatment options. I have explained to him that his overall prognosis is poor and a fair estimate of a median survival is 3- 4 months given the multiple brain mets. I have explained to him that palliative chemotherapy or targeted therapy for the renal cell ca may benefit his extracranial disease, but will likely not penetrated the BBB to control the brain mets. I also explained to him that his intracranial disease will be the primary restaurant delivery driver of his survival. I therefore would emphasize palliative RT to the intracranial disease burden. Beyond that, he may or may not choose palliative systemic therapy. Continue dexamethasone; IV dex may be converted to PO dex at d/c; a reasonable dose would be 4mg po tid. Continue Keppra at 500mg po BID for seizure prophylaxis. He is clear for d/c form my standpoint as RT planning can be coordinated as an outpatient. Sharath Cardoso MD Jan 04, 2017 07:56
[2017-01-04 08:00] VITALS: BP 156/83; PULSE 59; RESP 18; TEMP 96.2; O2SAT 96
[2017-01-04] MEDS: ACETAMINOPHEN/HYDROcodone 325 MG/5 MG TAB PO PRN ×2 (08:26→17:44)
[2017-01-04] MEDS: SODIUM CHLORIDE 0.9% FLUSH 5 ML FLUSH IVF SCH (08:27)
--- NOTE | 2017-01-04 09:07 | PD.CONS ---
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 Pt reports that he has been having visual changes for over 6 months. Over the past week his vision has been becoming progressively worse, his vision has becoming more blurry and he is unable to see peripherally from his right eye. has had rhythmic jerking of his left upper and lower extremities, lasted <1 min. no loc. no prior occurrence. he has been started on keppra and iv dexa. states he is doing well. cognition at baseline. mri brain showing multiple contrast enhancing lesions. he has been seen by onc and radiation oncology. Review of Systems as above Past Family Social History Past Medical History Renal Cell Carcinoma Past Surgical History Left nephrectomy Left rotator cough surgery Cardiac stents place on 2 occasions, 4-5 stents Reported Medications Reported Meds & Active Scripts Active Reported Hydrocodone-Acetaminophen 5-325 mg Tab 1 Tab PO Q4H PRN Allergies: Coded Allergies: Lipitor (Verified Allergy, Unknown, 01/03/17) Family History Mother: Late 70s, Alzheimer's Father: at 48, [place] Social History Retired Lives at home with Has never smoked, rarely drinks, denies illicit drug use Review of Systems All other ROS: ROS reviewed as documented in chart Past Family Social History Allergies: Coded Allergies: Lipitor (Verified Allergy, Unknown, 01/03/17) Active Ordered Medications Current Medications Medications (Trade) Dose Ordered Sig/Simran Route Start Time Stop Time Status Last Admin (Reading 5-325 Mg) 1 tab Q4H PRN PO 01/03/17 17:00 01/04/17 08:26 (NS Flush) 2 ml UNSCH PRN IVF 01/03/17 17:00 (NS Flush) 2 ml BID IVF 01/03/17 21:00 01/04/17 08:27 (Zofran Inj) 4 mg Q6H PRN IV 01/03/17 17:00 (Decadron Inj) 4 mg Q6H IV PUSH 01/03/17 22:00 01/04/17 08:27 (Ativan Inj) 2 mg Q10M PRN IV 01/03/17 17:30 (Apresoline Inj) 10 mg Q6H PRN IV 01/03/17 17:30 (Catapres) 0.1 mg Q6H PRN PO 01/03/17 17:30 (Keppra) 500 mg Q12HR PO 01/04/17 21:00 Exam I&O / VS 01/03/17 01/03/17 01/04/17 15:00 23:00 07:00 Intake Total 240 ml Output Total 200 ml Balance -200 ml 240 ml Intake Oral 240 ml Output Urine Total 200 ml # Voids 1 2 Vital Signs Date Time Temp Pulse Resp B/P Pulse Ox O2 Delivery O2 Flow Rate FiO2 01/04/17 04:00 95.9 68 15 130/73 94 01/04/17 02:44 96.1 69 16 131/75 93 01/03/17 21:01 96.2 68 16 127/78 94 01/03/17 18:19 69 20 132/74 97 01/03/17 16:08 62 16 144/82 98 01/03/17 15:01 57 20 164/83 98 01/03/17 13:48 98 Room Air 01/03/17 12:35 65 16 138/68 96 01/03/17 12:16 98.1 75 14 135/68 97 Room Air General: Alert and Oriented, No acute distress Eye: EOMI Respiratory: Non-labored respirations Musculoskeletal: ROM Neurologic: Alert, Oriented, Normal sensory, Normal motor, Gag reflex normal Psychiatric: Cooperative, Appropriate mood & affect, Normal judgement, Non- suicidal Exam Comments ox 3. pleasant, in nad, follows, no neglect, ou 3-2mm, dense rt HH, face sym, no drift, brisk le msr, no clonus, planter flexor, pin nml in all 4 ext Review/Management Diagnosis/Plan: (1) Seizure disorder Plan: 2/2 brain mets focal sz 2/2 rt hemispheric lesion stable recs f/u eeg on keppra and dexa dexa should help the most in this setting; usually more effective then sz meds d/w pt/spouse no driving/swimming (2) Brain metastasis Plan: seeing onc/xrt (3) Metastatic renal cell carcinoma Plan: seeing onc/xrt Problem Qualifiers (1) Metastatic renal cell carcinoma: Qualified Code: C64.9 - Metastatic renal cell carcinoma, unspecified laterality Lloyd Hoffman MD Jan 04, 2017 09:07
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
[2017-01-04] MEDS ORDERED: PANTOPRAZOLE SOD 40 MG DELAYED RELEASE TAB PO SCH (12:00)
[2017-01-04 13:09] VITALS: O2SAT 95
--- NOTE | 2017-01-04 14:48 | MG ---
cc: EITAN GRANDE M.D. Lab No: [id number] Date: 01/04/2017 Age: Sex: M TECHNIQUE 17-channel EEG. DESCRIPTION The background rhythm is a symmetrical alpha rhythm, frequency 8-9 Hz, amplitude 20-30 microvolts. Hyperventilation was done with no change in the background rhythm. Photic stimulation results in a normal driving response. No lateralizing features are seen and no epileptiform features are seen. INTERPRETATION Normal EEG. Eitan Grande MD GILBERTO/BT /2:37 PM /2:45 PM
[2017-01-04] MEDS ORDERED: DEXA4TAB PO (15:39)
[2017-01-04] MEDS ORDERED: LEVE500 PO (15:39)
[2017-01-04] MEDS ORDERED: PANT40TA3 PO (15:39)
--- NOTE | 2017-01-04 15:40 | HHI.DCPOC ---
Discharge Care Plan Diagnosis: (1) Seizure disorder (2) Brain metastasis (3) Contraindication to deep vein thrombosis (DVT) prophylaxis (4) Metastatic renal cell carcinoma (5) Visual field defect Goals to Promote Your Health * To prevent worsening of your condition and complications * To maintain your health at the optimal level Directions to Meet Your Goals Take your medications as prescribed Follow your dietary instruction Follow activity as directed Keep your appointments as scheduled Take your immunizations and boosters as scheduled If your symptoms worsen call your PCP, if no PCP go to Urgent Care Center or Emergency Room Smoking is Dangerous to Your Health. Avoid second hand smoke Call the 24-hour hour crisis hotline for domestic abuse at Vero De La Garza MD R2 Jan 04, 2017 15:40 Cheryl Bonner MD Jan 04, 2017 16:25
--- NOTE | 2017-01-04 16:33 | HHI.FPPN ---
Subjective Subjective Patient seen and examined with the resident team. Case reviewed and discussed. Please refer to resident H&P for further details regarding history of present illness, ROS, past medical and surgical history, family and social history. In summary, patient is a right handed 66-year-old male with a history of renal cell carcinoma status post nephrectomy with known lung metastasis presenting with 6 months of visual disturbance. He reports that his right peripheral vision to the midline is obscured and has progressively worsened. He also notes some difficulty initiating ambulation when getting up. Imaging of the brain upon arrival to the emergency room demonstrated multiple brain metastases. The patient has been seen by oncology and neurology this morning. He reports that he is slightly improved from admission. He would like to go home. EEG was just completed. [facility] Objective Objective Last Impressions Chest X-Ray 01/03/171258 Signed Impressions: Service Date/Time: Tuesday, January 03, 2017 12:56 - CONCLUSION: Focal masslike area of opacity in the right cardiophrenic angle which is nonspecific but may represent a cardiac fat pad. Other mass lesions are not excluded. This could be further evaluated with CT. Darryl Andre MD Brain MRI 01/03/179 Signed Impressions: Service Date/Time: Tuesday, January 03, 2017 14:23 - CONCLUSION: 4 metastatic lesions as described. Darryl Andre MD Head Magnetic Resonance Angiography 01/03/17 0000 Signed Impressions: Service Date/Time: Tuesday, January 03, 2017 14:23 - CONCLUSION: 1. Negative examination. Ciaran Hassan MD Laboratory Tests - Abnormals Test 01/04/17 06:07 Hemoglobin 12.2 GM/DL Hematocrit 36.7 % Mean Platelet Volume 6.5 FL Neutrophils (%) (Auto) 88.7 % Lymphocytes # (Auto) 0.8 TH/MM3 Creatinine 1.33 MG/DL Estimat Glomerular Filtration 54 ML/MIN Rate Random Glucose 142 MG/DL Vital Signs 01/03/17 01/03/17 01/04/17 01/04/17 18:19 21:01 02:44 04:00 Temp 96.2 96.1 95.9 Pulse 69 68 69 68 Resp 20 16 16 15 B/P 132/74 127/78 131/75 130/73 Pulse Ox 97 94 93 94 01/04/17 01/04/17 08:00 13:09 Temp 96.2 Pulse 59 Resp 18 B/P 156/83 Pulse Ox 96 95 FiO2 21 INTAKE & OUTPUT 01/04/17 07:00 Intake Total 240 ml Output Total 200 ml Balance 40 ml Physical exam GENERAL: Well-developed and well-nourished, NAD SKIN: Warm and dry. No rashes or lesions HEAD: Normocephalic. Atraumatic EYES: No scleral icterus. No injection or drainage. ENT: OP clear. MMM. NECK: Supple, trachea midline. No JVD or lymphadenopathy. CARDIOVASCULAR: Regular rate and rhythm without murmurs, gallops, or rubs. RESPIRATORY: Breath sounds equal bilaterally. No accessory muscle use. GASTROINTESTINAL: Abdomen soft, non-tender, nondistended. MUSCULOSKELETAL: No cyanosis, or edema. No calf tenderness. BACK: Nontender without obvious deformity. No CVA tenderness. Neuro: Awake and alert, normal speech. Normal cerebellar testing. 5 out of 5 right upper and lower extremity, 4-5 out of 5 on the left Assessment Assessment 66-year-old male admitted with: Brain metastasis, history of renal cell carcinoma History of CAD status post cardiac stenting History of hypertension and hyperlipidemia Chronic renal insufficiency PLAN PLAN Evaluation for palliative radiation therapy per Rad Onc EEG pending Antiepileptic medication with Keppra Seizure precautions with Ativan when necessary Neurochecks Palliative consultation Decadron Resume home meds as appropriate Patient seen and examined. Case reviewed and discussed with resident team. Agree with plan of care as discussed with me and documented in the resident note. Desires to go home. If EEG results negative, will discharge with follow-up with Dr. Cardoso, oncology, radiation oncology and neurology. Misha level in one week prior to follow-up with neurology. Cheryl Bonner MD Jan 04, 2017 16:33
[2017-01-04 17:55] VITALS: O2SAT 95
[2017-01-04] MEDS ORDERED: levETIRAcetam 500 MG TAB PO SCH (21:00)
== END 2017-01-04 18:06 | disposition home or self-care (01) | DRG 54 ==
LOC: NEPE 12:14 → NEDA 15:51 → HOCB 18:31
PROVIDERS: ADMIT Family Medicine; ATTEND Family Medicine
DX: C79.31 Secondary malignant neoplasm of brain (principal); G93.6 Cerebral edema; C78.00 Secondary malignant neoplasm of unspecified lung; C79.89 Secondary malignant neoplasm of other specified sites; G40.89 Other seizures; Z85.528 Personal history of other malignant neoplasm of kidney; D50.9 Iron deficiency anemia, unspecified; I12.9 Hypertensive chronic kidney disease with stage 1 through stage 4 chronic kidney disease, or unspecified chronic kidney disease; N18.9 Chronic kidney disease, unspecified; E78.5 Hyperlipidemia, unspecified; G89.29 Other chronic pain; F40.240 Claustrophobia; H54.0 Blindness, both eyes; I25.10 Atherosclerotic heart disease of native coronary artery without angina pectoris; K21.9 Gastro-esophageal reflux disease without esophagitis; K59.00 Constipation, unspecified; M19.90 Unspecified osteoarthritis, unspecified site; M48.00 Spinal stenosis, site unspecified; Z90.5 Acquired absence of kidney; Z95.5 Presence of coronary angioplasty implant and graft
CPT/HCPCS: 70544; 70553; 71010; 77263; 77290; 77334; 80048; 83735; 85025; 85610; 85730; 95819; 96374; 99232; A9579; J1100; J1953; J2060

== ENCOUNTER 2017-02-12 19:59 | Inpatient (IN) | payer MEDICARE ==
[~2017-02-12] VITALS: Ht 190.5 cm; Wt 112.0 kg
[~2017-02-12 19:59] MED LIST changes: -ASPI81 PO; -CLOP75 PO; -CYCL-36 PO; +DEXA4TAB PO; -FOSI10TA4 PO; +HYDR-3516 PO; +LEVE500 PO; -LORTA5 PO; +PANT40TA3 PO
[2017-02-12 20:01] VITALS: BP 165/86; PULSE 108; RESP 18; TEMP 99.2; O2SAT 95
[2017-02-12] MEDS ORDERED: SODIUM CHLOR 0.9% 1000 ML INJ 1,000 ML IV ONE (20:22)
--- NOTE | 2017-02-12 20:30 | PD ---
HPI Chief Complaint: GI Complaint Time Seen by Provider: 20:30 Travel History International Travel<30 days: No Contact w/Intl Traveler<30days: No Traveled to known affect area: No History of Present Illness HPI 66-year-old male with history of CAD, stent placement 5, hypertension, kidney cancer with metastases to the lung and brain, presents to emergency department today for evaluation of diarrhea and worsening weakness. Patient started having diarrhea 1 week ago. He had no preceding illness to this. Denies any hematochezia. No abdominal pain. He states today when he has been unable to move his left lower extremity. He states this has happened in the past and he was given a medicine and he gained back strength and movement in that left lower extremity. Denies any injury. Has constant back pain but this is not new for him. Denies HSV or tightness. No difficulty breathing. No abdominal pain. No other symptoms to report. PFSH Past Medical History Blood Disorders: No Anxiety: Yes Depression: No Cancer: Yes (kidney and lung) Cardiovascular Problems: Yes (STENTSx5) High Cholesterol: Yes Diabetes: No Diminished Hearing: No Endocrine: No Genitourinary: Yes (Kidney cancer) Hiatal Hernia: Yes Hypertension: Yes Immune Disorder: No Musculoskeletal: No Neurologic: No Psychiatric: Yes Reproductive: No Respiratory: No Radiation Therapy: Yes Past Surgical History Cardiac Surgery: Yes (stents) Neurologic Surgery: Yes (1 kidney r/t ca) Other Surgery: Yes (L SHOULDER) Family History Family Myocardial Infarction: Yes (father NV at age 48) Social History Alcohol Use: Yes (social) Tobacco Use: No Substance Use: No Allergies-Medications (Allergen,Severity, Reaction): Coded Allergies: Lipitor (Verified Allergy, Unknown, 02/12/17) Reported Meds & Prescriptions Reported Meds & Active Scripts Active Dexamethasone 4 Mg Tab 4 Mg PO Q8HR Pantoprazole (Pantoprazole Sodium) 40 Mg Tab 40 Mg PO DAILY Keppra (Levetiracetam) 500 Mg Tab 500 Mg PO Q12HR Reported Hydrocodone-Acetaminophen 5-325 mg Tab 1 Tab PO Q4H PRN Review of Systems Except as stated in HPI: all other systems reviewed are Neg Physical Exam Narrative GENERAL: Well-nourished male patient, lying in bed, in no acute distress SKIN: Warm and dry. HEAD: Atraumatic. Normocephalic. EYES: Pupils equal and round. No scleral icterus. No injection or drainage. ENT: No nasal bleeding or discharge. Mucous membranes pink and moist. NECK: Trachea midline. No JVD. CARDIOVASCULAR: Tachycardic rate and rhythm. No murmur appreciated. RESPIRATORY: No accessory muscle use. Diminished, coarse to auscultation. Breath sounds equal bilaterally. GASTROINTESTINAL: Abdomen soft, non-tender, nondistended. Hepatic and splenic margins not palpable. MUSCULOSKELETAL: No obvious deformities. No clubbing. No cyanosis. No edema. Patient is unable to move the left lower extremity at the hip or knee. He is able to flex the ankle and point the toes. Sensation intact distal affected extremity. His pulses are palpable. NEUROLOGICAL: Awake and alert. No obvious cranial nerve deficits. Normal speech. PSYCHIATRIC: Appropriate mood and affect; insight and judgment normal. Data Data Last Documented VS Vital Signs Date Time Temp Pulse Resp B/P Pulse Ox O2 Delivery O2 Flow Rate FiO2 02/12/17 20:01 99.2 108 18 165/86 95 Room Air Orders Electrocardiogram (02/12/17 20:22) Complete Blood Count With Diff (02/12/17 20:22) Comprehensive Metabolic Panel (02/12/17 20:22) Prothrombin Time / Inr (Pt) (02/12/17 20:22) Act Partial Throm Time (Ptt) (02/12/17 20:22) Lactic Acid Sepsis Protocol (02/12/17 20:22) Ckmb (Isoenzyme) Profile (02/12/17 20:22) Troponin I (02/12/17 20:22) Urinalysis - C+S If Indicated (02/12/17 20:22) Influenzae A/B Antigen (02/12/17 20:22) Blood Culture (02/12/17 20:22) Chest, Single Ap (02/12/17 20:22) Blood Glucose (02/12/17 20:22) Ecg Monitoring (02/12/17 20:22) Iv Access Insert/Monitor (02/12/17 20:22) Oximetry (02/12/17 20:22) Oxygen Administration (02/12/17 20:22) Sodium Chlor 0.9% 1000 Ml Inj (Ns 1000 M (02/12/17 20:22) Ct Brain W/O Iv Contrast(Rout) (02/12/17 ) Mri Brain W&W/O Contrast (02/12/17 ) C Diff Toxin Pcr (02/12/17 21:01) Mri Screening Spine W&W/O Cont (02/12/17 ) Lorazepam Inj (Ativan Inj) (02/12/17 21:15) Gadodiamide Pf Inj (Omniscan Pf Inj) (02/12/17 22:01) Labs Laboratory Tests Test 02/12/17 20:40 White Blood Count 8.2 TH/MM3 Red Blood Count 4.48 MIL/MM3 Hemoglobin 12.6 GM/DL Hematocrit 37.3 % Mean Corpuscular Volume 83.4 FL Mean Corpuscular Hemoglobin 28.2 PG Mean Corpuscular Hemoglobin 33.9 % Concent Red Cell Distribution Width 19.6 % Platelet Count 225 TH/MM3 Mean Platelet Volume 6.1 FL Neutrophils (%) (Auto) 83.1 % Lymphocytes (%) (Auto) 8.9 % Monocytes (%) (Auto) 6.7 % Eosinophils (%) (Auto) 0.8 % Basophils (%) (Auto) 0.5 % Neutrophils # (Auto) 6.9 TH/MM3 Lymphocytes # (Auto) 0.7 TH/MM3 Monocytes # (Auto) 0.6 TH/MM3 Eosinophils # (Auto) 0.1 TH/MM3 Basophils # (Auto) 0.0 TH/MM3 CBC Comment AUTO DIFF Differential Total Cells 100 Counted Neutrophils % (Manual) 79 % Band Neutrophils % 8 % Lymphocytes % 7 % Monocytes % 1 % Eosinophils % 1 % Basophils % 1 % Neutrophils # (Manual) 7.4 TH/MM3 Metamyelocytes 1 % Myelocytes 2 % Differential Comment FINAL DIFF MANUAL Platelet Estimate NORMAL Platelet Morphology Comment NORMAL Red Cell Morphology Comment NORMAL Prothrombin Time 11.2 SEC Prothromb Time International 1.0 RATIO Ratio Activated Partial 28.7 SEC Thromboplast Time Sodium Level 134 MEQ/L Potassium Level 3.4 MEQ/L Chloride Level 100 MEQ/L Carbon Dioxide Level 22.7 MEQ/L Anion Gap 11 MEQ/L Blood Urea Nitrogen 17 MG/DL Creatinine 1.40 MG/DL Estimat Glomerular Filtration 51 ML/MIN Rate Random Glucose 125 MG/DL Lactic Acid Level 2.3 mmol/L Calcium Level 8.3 MG/DL Total Bilirubin 0.7 MG/DL Aspartate Amino Transf 9 U/L (AST/SGOT) Alanine Aminotransferase 20 U/L (ALT/SGPT) Alkaline Phosphatase 72 U/L Total Creatine Kinase 38 U/L Troponin I LESS THAN 0.02 NG/ML Total Protein 6.3 GM/DL Albumin 2.8 GM/DL MDM Medical Decision Making Medical Screen Exam Complete: Yes Emergency Medical Condition: Yes Medical Record Reviewed: Yes Differential Diagnosis Metastatic disease versus pneumonia versus influenza versus gastroenteritis Narrative Course 66-year-old male presents to emergency department for evaluation. Patient has low-grade temperatures tachycardic here. He has history of kidney cancer with metastases to the lungs and brain. Dr. Mota is his oncologist. He is also scheduled for radiation by Dr. Nguyen. Patient appears as though he does not feel well. He is unable to lift or move the left lower extremity except for the ankle and toes. I discussed the patient my attending physician Dr. Gold. Sepsis workup is initiated. He contacted Dr. Cole, oncologist telephone information clerk. MRI of the brain, cervical spine, thoracic, lumbar spine are requested. Following the results of these, she would like contacted back to discuss further plan of care. 2300 patient is signed out to my attending physician Dr. Gold who will assume care and disposition appropriately. Condition: Stable PalafoxEliz pearson MILAGRO Feb 12, 2017 20:30
--- NOTE | 2017-02-12 20:47 | PD ---
Physical Exam Narrative Patient was seen and examined with my perinatal breastfeeding assistant. Patient started having left leg weakness since December. Patient was seen by oncologist for that. Patient states that he started having severe diarrhea and increasing weakness of the left leg for the past week. Patient status is unable to move his left leg today. Patient denies any visual change. Patient denies any chest pain or shortness of breath. Patient denies abdominal pain. Data Data Last Documented VS Vital Signs Date Time Temp Pulse Resp B/P Pulse Ox O2 Delivery O2 Flow Rate FiO2 02/12/17 20:01 99.2 108 18 165/86 95 Room Air Orders Electrocardiogram (02/12/17 20:22) Complete Blood Count With Diff (02/12/17 20:22) Comprehensive Metabolic Panel (02/12/17 20:22) Prothrombin Time / Inr (Pt) (02/12/17 20:22) Act Partial Throm Time (Ptt) (02/12/17 20:22) Lactic Acid Sepsis Protocol (02/12/17 20:22) Ckmb (Isoenzyme) Profile (02/12/17 20:22) Troponin I (02/12/17 20:22) Urinalysis - C+S If Indicated (02/12/17 20:22) Influenzae A/B Antigen (02/12/17 20:22) Blood Culture (02/12/17 20:22) Chest, Single Ap (02/12/17 20:22) Blood Glucose (02/12/17 20:22) Ecg Monitoring (02/12/17 20:22) Iv Access Insert/Monitor (02/12/17 20:22) Oximetry (02/12/17 20:22) Oxygen Administration (02/12/17 20:22) Sodium Chlor 0.9% 1000 Ml Inj (Ns 1000 M (02/12/17 20:22) Ct Brain W/O Iv Contrast(Rout) (02/12/17 ) Mri Brain W&W/O Contrast (02/12/17 ) C Diff Toxin Pcr (02/12/17 21:01) Mri Screening Spine W&W/O Cont (02/12/17 ) Lorazepam Inj (Ativan Inj) (02/12/17 21:15) Gadodiamide Pf Inj (Omniscan Pf Inj) (02/12/17 22:01) Labs Laboratory Tests Test 02/12/17 20:40 White Blood Count 8.2 TH/MM3 Red Blood Count 4.48 MIL/MM3 Hemoglobin 12.6 GM/DL Hematocrit 37.3 % Mean Corpuscular Volume 83.4 FL Mean Corpuscular Hemoglobin 28.2 PG Mean Corpuscular Hemoglobin 33.9 % Concent Red Cell Distribution Width 19.6 % Platelet Count 225 TH/MM3 Mean Platelet Volume 6.1 FL Neutrophils (%) (Auto) 83.1 % Lymphocytes (%) (Auto) 8.9 % Monocytes (%) (Auto) 6.7 % Eosinophils (%) (Auto) 0.8 % Basophils (%) (Auto) 0.5 % Neutrophils # (Auto) 6.9 TH/MM3 Lymphocytes # (Auto) 0.7 TH/MM3 Monocytes # (Auto) 0.6 TH/MM3 Eosinophils # (Auto) 0.1 TH/MM3 Basophils # (Auto) 0.0 TH/MM3 CBC Comment AUTO DIFF Differential Total Cells 100 Counted Neutrophils % (Manual) 79 % Band Neutrophils % 8 % Lymphocytes % 7 % Monocytes % 1 % Eosinophils % 1 % Basophils % 1 % Neutrophils # (Manual) 7.4 TH/MM3 Metamyelocytes 1 % Myelocytes 2 % Differential Comment FINAL DIFF MANUAL Platelet Estimate NORMAL Platelet Morphology Comment NORMAL Red Cell Morphology Comment NORMAL Prothrombin Time 11.2 SEC Prothromb Time International 1.0 RATIO Ratio Activated Partial 28.7 SEC Thromboplast Time Sodium Level 134 MEQ/L Potassium Level 3.4 MEQ/L Chloride Level 100 MEQ/L Carbon Dioxide Level 22.7 MEQ/L Anion Gap 11 MEQ/L Blood Urea Nitrogen 17 MG/DL Creatinine 1.40 MG/DL Estimat Glomerular Filtration 51 ML/MIN Rate Random Glucose 125 MG/DL Lactic Acid Level 2.3 mmol/L Calcium Level 8.3 MG/DL Total Bilirubin 0.7 MG/DL Aspartate Amino Transf 9 U/L (AST/SGOT) Alanine Aminotransferase 20 U/L (ALT/SGPT) Alkaline Phosphatase 72 U/L Total Creatine Kinase 38 U/L Troponin I LESS THAN 0.02 NG/ML Total Protein 6.3 GM/DL Albumin 2.8 GM/DL [facility] Supervised Visit with YOUSUF: Yes Interpretation(s) Last Impressions Chest X-Ray 02/12/172021 Signed Impressions: Service Date/Time: Sunday, February 12, 2017 20:53 - CONCLUSION: Peribronchial thickening with ill-defined basilar airspace disease. Differential diagnosis includes bronchopneumonia. Lior Ferraro MD Head CT 02/12/17 Signed Impressions: Service Date/Time: Sunday, February 12, 2017 22:27 - CONCLUSION: 1. Areas of edema involving both cerebral hemispheres secondary to underlying metastatic lesions which are better seen with the prior MRI. No hemorrhage or herniation. Omer Perdomo Jr., MD Entire Spine MRI 02/12/17 Signed Impressions: Service Date/Time: Sunday, February 12, 2017 21:32 - CONCLUSION: 1. No metastatic lesions observed involving the spine. Omer Perdomo Jr., MD Brain MRI 02/12/17 Signed Impressions: Service Date/Time: Sunday, February 12, 2017 21:32 - CONCLUSION: 1. Metastatic disease to the brain as above. Slight increase in enhancing nodularity in the right frontal lobe since the prior exam with a slight increase in edema. The other visualized lesions in the brain, supratentorial and infratentorial are relatively stable. No recent infarct. No mass effect or shift. Lior Ferraro MD Diagnosis Primary Impression: Brain metastasis Additional Impression: Metastatic renal cell carcinoma Qualified Code: C64.9 - Metastatic renal cell carcinoma, unspecified laterality Hector Gold MD Feb 12, 2017 20:47
[2017-02-12 21:03] LABS: AUTOMATED NEUTROPHIL # 6.9 TH/MM3 (1.8-7.7); BASOPHIL % 0.5 % (0.0-2.0); EOSINOPHIL # 0.1 TH/MM3 (0-0.4); EOSINOPHIL % 0.8 % (0.0-4.0); HEMATOCRIT 37.3 % (39.0-51.0); LYMPH % 8.9 % (9.0-44.0); LYMPHOCYTE # 0.7 TH/MM3 (1.0-4.8); MEAN CELL VOLUME 83.4 FL (80.0-100.0); MEAN CORPUSCULAR HEMOGLOBIN 28.2 PG (27.0-34.0); MEAN CORPUSCULAR HGB CONC 33.9 % (32.0-36.0); MONO % 6.7 % (0.0-8.0); NEUT % 83.1 % (16.0-70.0); PLATELET COUNT 225 TH/MM3 (150-450); RED BLOOD COUNT 4.48 MIL/MM3 (4.50-5.90); RED CELL DISTRIBUTION WIDTH 19.6 % (11.6-17.2); WHITE BLOOD COUNT 8.2 TH/MM3 (4.0-11.0)
[2017-02-12 21:05] LABS: HEMO FLAGS AUTO DIFF
[2017-02-12] MEDS ORDERED: LORazepam 2 MG/ML VIAL IV PUSH ONE (21:15)
[2017-02-12 21:21] LABS: APTT (PATIENT) 28.7 SEC (24.3-30.1); PROTHROMBIN TIME - PATIENT 11.2 SEC (9.8-11.6)
--- NOTE | 2017-02-12 21:21 | RADRPT ---
EXAM DATE/TIME: 02/12/2017 20:53 [facility] COMPARISON: CHEST SINGLE AP, January 03, 2017, 12:56. INDICATIONS : Cough MEDICAL HISTORY : Metastatic disease. Hypertension Renal cell carcinoma. SURGICAL HISTORY : Nephrectomy, left. Rotator Cuff Surgery ENCOUNTER: Initial ACUITY: 1 day PAIN SCORE: 0/10 LOCATION: Bilateral chest FINDINGS: A single view of the chest demonstrates mild basilar airspace disease and peribronchial thickening. D ifferential diagnosis includes a bronchitis with bronchopneumonia. No significant effusion. No pneumo thorax. Heart size upper limits normal. CONCLUSION: Peribronchial thickening with ill-defined basilar airspace disease. Differential diagnosis includes b ronchopneumonia. Lior Ferraro MD on February 12, 2017 at 21:15 Board Certified Radiologist. This report was verified electronically.
[2017-02-12 21:23] LABS: ANION GAP 11 MEQ/L (5-15); AST (GOT) 9 U/L (15-37); BICARBONATE 22.7 MEQ/L (21.0-32.0); BLOOD UREA NITROGEN 17 MG/DL (7-18); CHLORIDE 100 MEQ/L (98-107); GLOMERULAR FILTRATION RATE 51 ML/MIN (>89); POTASSIUM 3.4 MEQ/L (3.5-5.1); SODIUM (NA) 134 MEQ/L (136-145)
[2017-02-12 21:28] LABS: ALKALINE PHOSPHATASE 72 U/L (45-117); ALT (GPT) 20 U/L (12-78); TOTAL BILIRUBIN ADULT 0.7 MG/DL (0.2-1.0)
[2017-02-12 21:29] LABS: CREATINE KINASE 38 U/L (39-308)
[2017-02-12 21:36] LABS: BANDS 8 % (0-6); BASOPHILS 1 % (0-2); EOSINOPHILS 1 % (0-4); METAMYELOCYTES 1 % (0-1); MYELOCYTES 2 % (0-0); NEUTROPHIL # MANUAL DIFF 7.4 TH/MM3 (1.8-7.7); POLYS (SEG NEUTROPHILS) 79 % (16-70); WBC DIFF SAMPLE 100
[2017-02-12 21:37] LABS: PLATELET ESTIMATE SMEAR NORMAL (NORMAL); PLATELET MORPHOLOGY NORMAL (NORMAL); SCAN/DIFF FINAL DIFF MANUAL
[2017-02-12] MEDS ORDERED: GADODIAMIDE PF 287 MG/ML 20 ML VIAL (for RAD MRI) IV ONE (22:01)
--- NOTE | 2017-02-12 22:44 | RADRPT ---
EXAM DATE/TIME: 02/12/2017 21:32 [facility] COMPARISON: No previous studies available for comparison. INDICATIONS : Metastatic disease. Left lower extremity weakness. CONTRAST: 20 cc Omniscan (gadodiamide) IV MEDICAL HISTORY : Carcinoma, lung. Metastatic, brain. SURGICAL HISTORY : Rotator cuff, left. Nephrectomy, left. stents. ENCOUNTER: [facility] ACUITY: 2 months PAIN SCORE: 0/10 LOCATION: cranial TECHNIQUE: Multiplanar, multisequence MRI of the brain was performed both prior to and following the administrat ion of paramagnetic contrast. FINDINGS: Comparison is January 03. There are subcentimeter metastatic lesions in the right cerebellar hemisph ere similar to prior exam. Left occipital lobe lesion measures around 2 cm in diameter is also fairly stable. There is a cluster of presumed metastatic nodules in the right frontal lobe which appear to have increased in number since January 03. 8mm lesion in the left frontal lobe appears stable to sli ghtly smaller in size than prior exam. Multifocal edema is similar except for slight worsening in the right frontal lobe since January 07. Currently there is no significant midline shift. No hydrocepha jorje. No abnormal extra-axial fluid. CONCLUSION: 1. Metastatic disease to the brain as above. Slight increase in enhancing nodularity in the right fro ntal lobe since the prior exam with a slight increase in edema. The other visualized lesions in the b rain, supratentorial and infratentorial are relatively stable. No recent infarct. No mass effect or s hift. Lior Ferraro MD on February 12, 2017 at 22:37 Board Certified Radiologist. This report was verified electronically.
[2017-02-12 22:58] LABS: LACTIC ACID GHOST NOT REPORTABLE
--- NOTE | 2017-02-12 23:01 | RADRPT ---
EXAM DATE/TIME: 02/12/2017 21:32 [facility] COMPARISON: No previous studies available for comparison. INDICATIONS : Metastatic disease. Left lower extremity weakness. CONTRAST: 20 cc Omniscan (gadodiamide) IV MEDICAL HISTORY : Carcinoma, lung. Metastatic, brain. SURGICAL HISTORY : Rotator cuff, left. Nephrectomy, left. stents. ENCOUNTER: Sequela ACUITY: 2 months PAIN SCORE: 0/10 LOCATION: Paraspinal TECHNIQUE: Screening MRI of the entire spinal axis was performed in the sagittal and axial planes. FINDINGS: The alignment of the spine is normal. No lesions are observed throughout the cervical, thoracic, or l umbar spine to suggest metastatic lesions. An intraosseous hemangioma seen at L1. Degenerative disc d isease with disc bulges are seen at C2-C3, C3-C4, C4-C5, C5-C6, C6-C7, and L1-L2. No central canal st enosis observed. Paraspinal soft tissues are unremarkable. Note is made of a sebaceous cyst involving the subcutaneous fat within the dorsal soft tissues of the spine centered at the C4-C5 level. CONCLUSION: 1. No metastatic lesions observed involving the spine. Omer Perdomo Jr., MD on February 12, 2017 at 22:55 Board Certified Radiologist. This report was verified electronically.
--- NOTE | 2017-02-12 23:09 | RADRPT ---
EXAM DATE/TIME: 02/12/2017 22:27 [facility] COMPARISON: MRI BRAIN W & W/O CONTRAST, February 12, 2017, 21:32. INDICATIONS : Weakness X one week. RADIATION DOSE: 45.93 CTDIvol (mGy) MEDICAL HISTORY : Cardiovascular disease. Hypertension. Renal carcinoma SURGICAL HISTORY : Nephrectomy, left. ENCOUNTER: Initial ACUITY: 1 day PAIN SCALE: 0/10 LOCATION: cranial TECHNIQUE: Multiple contiguous axial images were obtained of the head. Using automated exposure control and adj ustment of the mA and/or kV according to patient size, radiation dose was kept as low as reasonably a chievable to obtain optimal diagnostic quality images. FINDINGS: Vasogenic edema is seen involving the frontal lobes, right parietal lobe and left occipital lobe. Thi s is secondary to underlying metastatic lesions which are better seen on the recent MRI. No midline s hift or herniation. No hemorrhage. Ventricles are normal in size. Calvarium intact. Paranasal sinuses and mastoid air cells are clear. CONCLUSION: 1. Areas of edema involving both cerebral hemispheres secondary to underlying metastatic lesions whic h are better seen with the prior MRI. No hemorrhage or herniation. Omer Perdomo Jr., MD on February 12, 2017 at 23:04 Board Certified Radiologist. This report was verified electronically.
--- NOTE | 2017-02-12 23:20 | HHI.HP ---
HPI Service [facility] ([place], [place])ists Primary Care Physician Esther Forrester MD Admission Diagnosis Diagnoses: (1) Metastatic renal cell carcinoma Diagnosis: Principal (2) Brain metastasis Diagnosis: Principal (3) Lower extremity weakness Diagnosis: Principal (4) Renal insufficiency Diagnosis: Principal Travel History International Travel<30 Days: No Contact w/Intl Traveler <30 Da: No Traveled to Known Affected Are: No History of Present Illness This is a 66-year-old male with a PMH of Anxiety, Hyperlipidemia, CAD and Metastatic Renal Cell CA w/ Mets to Liver/Brain who was brought to the ER secondary to acute onset of LLE weakness starting earlier today. Following w/ Dr. Cardoso and Dr. Nguyen, on chronic steroids w/ plan for stereotactic radiation to brain lesions, last radiation approx 2wks ago. On arrival, BP 165/ 86, HR 108, O2 sat 95% on RA, Temp 99.2. CBC at baseline. Creatinine 1.40, producing 1.33 on 01/04/17. Lactic Acid 2.3, repeat pending. INR 1.0. CXR with peribronchial thickening and ill-defined basilar airspace disease, possibly bronchopneumonia. Dr. Cole consulted by ER physician, recommendation for MRI Brain and Spine. MRI Brain w/ slight increase in nodularity in right frontal lobe and slight increase in edema, MRI Spine negative for metastasis, recommendation for Decadron 4mg IV q6h. Review of Systems Except as stated in HPI: all other systems reviewed are Neg ROS: 14 point review of systems otherwise negative. Past Family Social History Past Medical History PMH: Anxiety, Hyperlipidemia, CAD and Metastatic Renal Cell CA w/ Mets to Liver /Brain Past Surgical History PAST SURGICAL HISTORY: Cardiac Stent, Left Shoulder Surgery, Nephrectomy Allergies: Coded Allergies: Lipitor (Verified Allergy, Unknown, 02/12/17) Family History PAST FAMILY HISTORY: Reviewed, positive for CAD. Social History PAST SOCIAL HISTORY: Occasional alcohol. Negative for tobacco or drugs. Physical Exam Vital Signs Vital Signs Date Time Temp Pulse Resp B/P Pulse Ox O2 Delivery O2 Flow Rate FiO2 02/12/17 20:01 99.2 108 18 165/86 95 Room Air Physical Exam PE: GENERAL: Middle-aged white male in no acute distress. HEENT: PERRLA, EOMI. No scleral icterus or conjunctival pallor. No lid lag or facial droop. CARDIOVASCULAR: Regular rate and rhythm. No obvious murmurs to auscultation. No chest tenderness to palpation. RESPIRATORY: No obvious rhonchi or wheezing. Clear to auscultation. Breath sounds equal bilaterally. GASTROINTESTINAL: Abdomen soft, non-tender, nondistended. BS normal. MUSCULOSKELETAL: Extremities without clubbing, cyanosis, or edema. No obvious deformities. NEUROLOGICAL: Awake, alert and oriented x4. LLE weakness, unable to lift LLE. Strength 5/5 elsewhere. Laboratory Laboratory Tests Test 02/12/17 20:40 White Blood Count 8.2 Red Blood Count 4.48 Hemoglobin 12.6 Hematocrit 37.3 Mean Corpuscular Volume 83.4 Mean Corpuscular Hemoglobin 28.2 Mean Corpuscular Hemoglobin 33.9 Concent Red Cell Distribution Width 19.6 Platelet Count 225 Mean Platelet Volume 6.1 Neutrophils (%) (Auto) 83.1 Lymphocytes (%) (Auto) 8.9 Monocytes (%) (Auto) 6.7 Eosinophils (%) (Auto) 0.8 Basophils (%) (Auto) 0.5 Neutrophils # (Auto) 6.9 Lymphocytes # (Auto) 0.7 Monocytes # (Auto) 0.6 Eosinophils # (Auto) 0.1 Basophils # (Auto) 0.0 CBC Comment AUTO DIFF Differential Total Cells 100 Counted Neutrophils % (Manual) 79 Band Neutrophils % 8 Lymphocytes % 7 Monocytes % 1 Eosinophils % 1 Basophils % 1 Neutrophils # (Manual) 7.4 Metamyelocytes 1 Myelocytes 2 Differential Comment FINAL DIFF MANUAL Platelet Estimate NORMAL Platelet Morphology Comment NORMAL Red Cell Morphology Comment NORMAL Prothrombin Time 11.2 Prothromb Time International 1.0 Ratio Activated Partial 28.7 Thromboplast Time Sodium Level 134 Potassium Level 3.4 Chloride Level 100 Carbon Dioxide Level 22.7 Anion Gap 11 Blood Urea Nitrogen 17 Creatinine 1.40 Estimat Glomerular Filtration 51 Rate Random Glucose 125 Lactic Acid Level 2.3 Calcium Level 8.3 Total Bilirubin 0.7 Aspartate Amino Transf 9 (AST/SGOT) Alanine Aminotransferase 20 (ALT/SGPT) Alkaline Phosphatase 72 Total Creatine Kinase 38 Troponin I LESS THAN 0.02 Total Protein 6.3 Albumin 2.8 Date/Time Procedure Status Source Growth 02/12/17 20:40 Aerobic Blood Culture Received Blood Peripheral Pending 02/12/17 20:40 Anaerobic Blood Culture Received Blood Peripheral Pending Result Diagram: 02/12/17203902/12/172039 Assessment and Plan Problem List: (1) Metastatic renal cell carcinoma ICD Code: C64.9 Status: Acute (2) Lower extremity weakness ICD Code: R29.898 Status: Acute (3) Renal insufficiency ICD Code: N28.9 Status: Acute (4) Brain metastasis ICD Code: C79.31 Status: Acute Assessment and Plan A/P: 1. Metastatic Renal Cell CA: following w/ Dr. Cardoso and Dr. Nguyen, s/p radiation 2wks ago, known mets to Lung/Liver, currently on Dexamethasone PO. Dr. Cole consulted by ER physician, will place formal consult. CXR w/ peribronchial thickening and ill-defined airspace disease, possibly bronchopneumonia, images reviewed by me, however findings likely related to lung metastasis, no signs of infection, will monitor. 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 MRI Spine negative for mets, images reviewed by me. Dr. Cole informed of findings, recommended Decadron 4mg IV q6h. Continue w/ Seizure Prophylaxis. Neuro checks q4h 3. LLE Weakness: MRI Spine negative for metastatic lesion, MRI Brain w/ worsening edema, as above. Consult Dr. Cardoso. 4. Renal Insufficiency: Chronic. Creatinine 1.40, previously 1.33 on . IVF, repeat labs in am. 5. 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 6. Social work for d/c planning as needed. 7. Case discussed w/ ER physician at length Physician Certification 2 Midnight Certification Type: Admission for Inpatient Services Order for Inpatient Services The services are ordered in accordance with Medicare regulations or non- Medicare payer requirements, as applicable. In the case of services not specified as inpatient-only, they are appropriately provided as inpatient services in accordance with the 2-midnight benchmark. Estimated LOS (days): 2 days is the estimated time the patient will need to remain in the hospital, assuming treatment plan goals are met and no additional complications. Post-Hospital Plan: Not yet determined Problem Qualifiers (1) Metastatic renal cell carcinoma: Qualified Code: C64.9 - Metastatic renal cell carcinoma, unspecified laterality Jaye Mejia MD Feb 12, 2017 23:20
[2017-02-12] MEDS ORDERED: BISACODYL 10 MG SUPP PR PRN (23:30)
[2017-02-12] MEDS ORDERED: HYDROmorphone HCL PF 1 MG/ML VIAL IV PRN (23:30)
[2017-02-12] MEDS ORDERED: ACETAMINOPHEN 325 MG TAB PO PRN (23:30)
[2017-02-12] MEDS ORDERED: DEXAMETHASONE SOD PHOS 4 MG/ML VIAL IV PUSH ONE (23:30)
[2017-02-12] MEDS ORDERED: SODIUM CHLORIDE 0.9% FLUSH 10 ML FLUSH IV FLUSH PRN (23:30)
[2017-02-12] MEDS ORDERED: ONDANSETRON HCL 4 MG/2 ML VIAL IVP PRN (23:30)
[2017-02-13] VITALS (9 sets, daily range): BP systolic 128–153; BP diastolic 75–87; PULSE 64–95; RESP 16–20; TEMP 96.3–98.6; O2SAT 94–97
[2017-02-13] MEDS: SODIUM CHLOR 0.9% 1000 ML INJ 1,000 ML IV SCH ×3 (00:21→17:49)
[2017-02-13] MEDS: ACETAMINOPHEN/HYDROcodone 325 MG/5 MG TAB PO PRN ×4 (01:40→19:47)
[2017-02-13] MEDS: DEXAMETHASONE SOD PHOS 4 MG/ML VIAL IV PUSH SCH ×2 (05:50→12:45)
[2017-02-13 07:08] LABS: BLOOD, URINE SMALL (NEG); GLUCOSE,URINE NEG (NEG); KETONE, URINE NEG (NEG); NITRITE,URINE NEG (NEG); URINE COLOR LIGHT-YELLOW (YELLW/STRAW)
[2017-02-13 07:25] LABS: COMMENT (UR) CULT NOT INDICATED; CULTURE IF INDICATED CULT NOT INDICATED
[2017-02-13 07:49] LABS: AUTOMATED NEUTROPHIL # 5.7 TH/MM3 (1.8-7.7); BASOPHIL % 0.2 % (0.0-2.0); EOSINOPHIL % 0.1 % (0.0-4.0); HEMATOCRIT 35.7 % (39.0-51.0); LYMPH % 7.8 % (9.0-44.0); LYMPHOCYTE # 0.5 TH/MM3 (1.0-4.8); MEAN CELL VOLUME 83.1 FL (80.0-100.0); MEAN CORPUSCULAR HEMOGLOBIN 27.8 PG (27.0-34.0); MEAN CORPUSCULAR HGB CONC 33.5 % (32.0-36.0); MONO % 2.1 % (0.0-8.0); NEUT % 89.8 % (16.0-70.0); PLATELET COUNT 200 TH/MM3 (150-450); RED CELL DISTRIBUTION WIDTH 19.4 % (11.6-17.2); WHITE BLOOD COUNT 6.3 TH/MM3 (4.0-11.0)
[2017-02-13 08:11] LABS: ALKALINE PHOSPHATASE 70 U/L (45-117); ALT (GPT) 18 U/L (12-78); ANION GAP 10 MEQ/L (5-15); AST (GOT) 9 U/L (15-37); BICARBONATE 24.4 MEQ/L (21.0-32.0); BLOOD UREA NITROGEN 15 MG/DL (7-18); CHLORIDE 104 MEQ/L (98-107); GLOMERULAR FILTRATION RATE 64 ML/MIN (>89); SODIUM (NA) 138 MEQ/L (136-145); TOTAL BILIRUBIN ADULT 0.8 MG/DL (0.2-1.0)
--- NOTE | 2017-02-13 08:15 | HHI.PR ---
Subjective Remarks resting comfortably with no distress. says that the left-sided weakness has improved. has diarrhea. no sob or fever. Objective Vitals Vital Signs Date Time Temp Pulse Resp B/P Pulse Ox O2 Delivery O2 Flow Rate FiO2 02/13/17 04:00 98.6 74 18 128/82 97 02/13/17 02:09 79 02/13/17 01:30 98.2 88 18 132/80 95 02/13/17 00:34 Room Air 02/13/17 00:30 98.1 82 16 131/76 97 Room Air 02/12/17 20:01 99.2 108 18 165/86 95 Room Air I/O 02/12/17 02/12/17 02/12/17 02/13/17 02/13/17 02/13/17 07:00 15:00 23:00 07:00 15:00 23:00 Intake Total 498 ml Output Total 600 ml Balance -102 ml Intake Oral 60 ml IV Total 438 ml Output Urine Total 600 ml # Voids 1 # Bowel Movements 3 Result Diagram: 02/12/17203902/12/172039 Imaging Last Impressions Chest X-Ray 02/12/172021 Signed Impressions: Service Date/Time: Sunday, February 12, 2017 20:53 - CONCLUSION: Peribronchial thickening with ill-defined basilar airspace disease. Differential diagnosis includes bronchopneumonia. Lior Ferraro MD Head CT 02/12/17 0000 Signed Impressions: Service Date/Time: Sunday, February 12, 2017 22:27 - CONCLUSION: 1. Areas of edema involving both cerebral hemispheres secondary to underlying metastatic lesions which are better seen with the prior MRI. No hemorrhage or herniation. Omer Perdomo Jr., MD Entire Spine MRI 02/12/17 0000 Signed Impressions: Service Date/Time: Sunday, February 12, 2017 21:32 - CONCLUSION: 1. No metastatic lesions observed involving the spine. Omer Perdomo Jr., MD Brain MRI 02/12/17 0000 Signed Impressions: Service Date/Time: Sunday, February 12, 2017 21:32 - CONCLUSION: 1. Metastatic disease to the brain as above. Slight increase in enhancing nodularity in the right frontal lobe since the prior exam with a slight increase in edema. The other visualized lesions in the brain, supratentorial and infratentorial are relatively stable. No recent infarct. No mass effect or shift. Lior Ferraro MD Objective Remarks GENERAL: This is a well-nourished, well-developed patient, in no apparent distress. CARDIOVASCULAR: Regular rate and regular rhythm without murmurs, gallops, or rubs. RESPIRATORY: Clear to auscultation. Breath sounds equal bilaterally. No wheezes , rales, or rhonchi. GASTROINTESTINAL: Abdomen soft, non-tender, nondistended. Normal, active bowel sounds MUSCULOSKELETAL: Extremities without clubbing, cyanosis, or edema. NEURO: Alert & Oriented x4 to person, place, time, situation. Moves all ext x4 Procedures none Medications and IVs Current Medications Sodium Chloride (NS 1000 ml Inj) 1,000 ml @ 1,000 mls/hr Q1H ONCE IV Last administered on 02/12/17 20:49; Start 02/12/17 at 20:22; Stop 02/12/17 at 21:21 ; Status DC Lorazepam (Ativan Inj) 2 mg ONCE ONCE IV PUSH Last administered on 02/12/17 21:47; Start 02/12/17 at 21:15; Stop 02/12/17 at 21:16; Status DC Gadodiamide 20 ml 20 ml STK-MED ONCE IV Last administered on 02/12/17 22:01; Start 02/12/17 at 22:01; Stop 02/12/17 at 22:02; Status DC Sodium Chloride (NS 1000 ml Inj) 1,000 ml @ 100 mls/hr Q10H IV Last administered on 02/13/17 00:21; Start 02/12/17 at 23:23 Sodium Chloride (NS Flush) 2 ml UNSCH PRN IV FLUSH FLUSH AFTER USING IV ACCESS ; Start 02/12/17 at 23:30 Sodium Chloride (NS Flush) 2 ml BID IV FLUSH ; Start 02/13/17 at 09:00 Ondansetron HCl (Zofran Inj) 4 mg Q6H PRN IVP NAUSEA OR VOMITING; Start at 23:30 Bisacodyl (Dulcolax Supp) 10 mg DAILY PRN [place] CONSTIPATION; Start 02/12/17 at 23 :30 Acetaminophen (Tylenol) 650 mg Q6H PRN PO FEVER/PAIN SCALE 1 TO 2; Start at 23:30 Acetaminophen/ Hydrocodone Bitart ([place] 5-325 Mg) 1 tab Q4H PRN PO PAIN SCALE 3 TO 5 Last administered on 02/13/17 01:40; Start 02/12/17 at 23:30 Hydromorphone HCl (Dilaudid Pf Inj) 1 mg Q3H PRN IV Pain 6-10; Start 02/12/17 at 23:30 Levetriacetam (Keppra) 500 mg Q12HR PO ; Start 02/13/17 at 09:00 Pantoprazole Sodium (Protonix) 40 mg DAILY PO ; Start 02/13/17 at 09:00 Dexamethasone Sodium Phosphate (Decadron Inj) 4 mg Q6HR IV PUSH Last administered on 02/13/17 05:50; Start 02/13/17 at 06:00 Dexamethasone Sodium Phosphate (Decadron Inj) 4 mg ONCE ONCE IV PUSH Last administered on 02/13/17 00:21; Start 02/12/17 at 23:30; Stop 02/12/17 at 23:31 ; Status DC A/P Assessment and Plan A/P 1. Metastatic Renal Cell CA: following w/ Dr. Cardoso and Dr. Nguyen, s/p radiation 2wks ago, known mets to Lung/Liver, currently on Dexamethasone PO. oncology consulted. 2. 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 MRI Spine negative for mets. Dr. Cole recommended Decadron 4mg IV q6h. Continue w/ Seizure Prophylaxis. Neuro checks q4h 3. LLE Weakness: MRI Spine negative for metastatic lesion, MRI Brain w/ worsening edema, as above. Consulted oncology and PT. 4. Renal Insufficiency: Chronic. will monitor. 5.diarrhea- C-diff pending. 6. DVT Prophylaxis: Pharmacologic contraindication in light of UX UI DESIGNER lesions. Shawna Marquis MD Feb 13, 2017 08:14
[2017-02-13] MEDS: SODIUM CHLORIDE 0.9% FLUSH 10 ML FLUSH IV FLUSH SCH ×2 (08:27→19:49)
[2017-02-13] MEDS: PANTOPRAZOLE SOD 40 MG DELAYED RELEASE TAB PO SCH (08:27)
[2017-02-13] MEDS: levETIRAcetam 500 MG TAB PO SCH ×2 (08:27→19:47)
[2017-02-13 08:35] LABS: C. DIFF EPI 027 PRESUMPTIVE NEGATIVE (NEGATIVE); C. DIFF TOXIN PCR NEGATIVE (NEGATIVE)
[2017-02-13 08:54] LABS: HEMO FLAGS AUTO DIFF
[2017-02-13 12:35] LABS: BANDS 21 % (0-6); METAMYELOCYTES 2 % (0-1); OVALOCYTES 1+ (NORMAL); PLATELET ESTIMATE SMEAR NORMAL (NORMAL); PLATELET MORPHOLOGY NORMAL (NORMAL); POLYS (SEG NEUTROPHILS) 72 % (16-70); SCAN/DIFF FINAL DIFF MANUAL; WBC DIFF SAMPLE 100
[2017-02-13] MEDS ORDERED: DIPHENOXYLATE/ATROPINE 2.5 MG/0.025 MG TAB PO PRN (12:45)
--- NOTE | 2017-02-13 13:39 | MB ---
cc: PARI GREEN DATE OF CONSULTATION: 02/13/2017 REASON FOR CONSULTATION: Metastatic renal cell cancer to the brain with and acute onset of left leg weakness PATIENT PROFILE: The patient is a 66 year-old white male. He is . He has three children. He was born in [place]. 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 He does not smoke. He does not drink. He enjoys doing volunteer work. HISTORY OF PRESENT ILLNESS: The patient is a 66 year-old male who was discovered to have a renal cell cancer in the fall of 2012. He underwent surgical resection of the left kidney in December of 2013. Following this, he underwent observation. He unfortunately developed recurrence with a mass in the mediastinum. He declined treatment and underwent some type of homeopathic intervention. He recently developed metastatic disease to the brain and presented with seizures as well as left leg weakness. He was treated with stereotactic radiotherapy to the brain by Dr. Nguyen, completing treatment approximately two weeks ago. At the time of diagnosis he was placed on Keppra and dexamethasone. The dexamethasone was originally 4 milligrams four times a day and it has been tapered to the point that he is now taking 2 milligrams a day. A number of events have occurred during the past week. The first event is that he has had diarrhea for four or five days which has not resolved. There has been no abdominal pain, melena, hematochezia. The second is a cough, bringing up an olive green sputum. The third event happened within the past 24 to 48 hours. He developed the acute onset of left leg weakness. This left leg weakness he tells me was identical to what he had at the time he presented with metastatic disease to the brain. This appears to have occurred in temporal relationship to the tapering of the Decadron. The following studies have been done: He had a screening MRI of the cervical, thoracic and lumbar spine showing no metastatic lesions. An MRI of the brain from 02/12/2017, is compared with January 03. There is subcentimeter metastatic lesions in the right cerebellar hemisphere similar to the prior exam. The left occipital lobe lesion measures 2.0 cm in diameter and is stable. There is a cluster of presumed metastatic nodules in the right frontal lobe which appear to have increased in number since January 03. There is an 8 millimeter lesion in the left frontal lobe which appears stable. It is slightly smaller in size than the prior exam. There is multifocal edema similar, except for slight worsening in the right frontal lobe since January 07. He was given dexamethasone 4 milligrams q6 hours. Today his leg is back to what it was weeks ago. He is able to sit, stand and walk. PAST SURGICAL HISTORY: 1. Placement of four coronary stents. 2. Left rotator cuff repair. 3. Arterial embolization of left kidney in 2013, prior to left nephrectomy. 4. Upper endoscopy in 2011. 5. Colonoscopy in 2010. PAST MEDICAL HISTORY: 1. Metastatic renal cell cancer to brain and mediastinum. 2. Evaluation for anemia in 2011. I believe the bone marrow was normal and this may have been related to the renal cell cancer but this is unclear. 3. Spinal stenosis. MEDICATIONS PRIOR TO ADMISSION: 1. Dexamethasone 2 milligrams a day. 2. Keppra 500 p.o. b.i.d. 3. Lortab 5/325, one p.o. q4 hours p.r.n. pain. 4. Protonix. ALLERGIES: LIPITOR CAUSES MUSCLE PAIN FAMILY HISTORY: Noncontributory, without any history of malignancy. There is a history of cardiac disease. REVIEW OF SYSTEMS: Vision: He had a field defect which was resolved since the radiation therapy. He is hard of hearing. He has cough and green sputum production. Very minimal, if any, exertional shortness of breath. No chest pain. He has diarrhea without abdominal pain, melena, hematochezia, no dysuria, frequency. No bone pain. Neurologic: At the time of admission was notable for acute onset of left leg weakness. No recent seizures. He has slight proximal muscle weakness involving the legs. PHYSICAL EXAMINATION: Reveals a gentleman who does not appear acutely ill. VITAL SIGNS: Blood pressure 130/70, respiratory rate 20, pulse 80, afebrile. O2 sat 94%. Head: Normocephalic. Sclera and conjunctivae are normal. Oropharynx: Along the corners of the lips, they are dry and cracked. There is no evidence of thrush. There is no cervical, supraclavicular, axillary or inguinal adenopathy. Heart: Regular rhythm. Lungs: Clear without rales, rhonchi or wheezing. Abdomen: Without hepatosplenomegaly or masses. Extremities: Trace edema. Musculoskeletal: No bone pain. Neurologic: Slight proximal leg weakness bilaterally with left leg slightly weaker than the right. The patient is able to go from sitting to a standing position and he is able to walk and appears to have a stable gait. ASSESSMENT/PLAN: 1. The patient has metastatic renal cell cancer to the brain. He has received stereotactic radiotherapy and has had acute deterioration in neurologic function with left leg weakness which was identical to his original presentation. I believe this is a result of tapering the steroids. PLan 1. Continue Decadron. Will switch to Decadron 4 milligrams p.o. q.i.d. 2. Continue Keppra. 3. Protonix. 2. He has cough, sputum production. The sputum does appear purulent and the chest x-ray shows "peribronchial thickening with ill-defined basilar air space disease. The differential diagnosis includes bronchopneumonia. Begin Levaquin 500 milligrams p.o. daily. 3. The patient has diarrhea. It is poorly explained. Stools are negative for C. Difficile. I will order routine pathogens and in addition, will begin Lomotil one p.o. q4 hours as needed. 4. There is a question about progressive disease involving the brain. I will ask the patient's radiation oncologist, Dr. Fredis Nguyen to see him in consultation. The situation was reviewed with the patient and . Dr. Cardoso will return tomorrow. MD ARABELLA Alves/NIXON /1:02 PM /1:13 PM [facility]Jose
[2017-02-13] MEDS: LEVOFLOXACIN 500 MG TAB PO SCH (13:47)
--- NOTE | 2017-02-13 15:27 | EKG ---
Date Performed: 02/12/2017 Time Performed: 22:54:33 PTAGE: 66 years EKG: Sinus rhythm MODERATE VOLTAGE CRITERIA FOR LVH, CONSIDER NORMAL VARIANT MODERATE ST DEPRESSION QRS voltage slight ly increased from the prior tracing, otherwise no change ABNORMAL ECG PREVIOUS TRACING : 10/27/2012 11.05 DOCTOR: Mustapha Garcia Interpretating Date/Time 02/13/2017 15:26:51
[2017-02-13] MEDS: DEXAMETHASONE 4 MG TAB PO SCH ×2 (17:48→19:46)
[2017-02-14] VITALS: BP 162/92; PULSE 69; RESP 18; TEMP 97.2; O2SAT 95
[2017-02-14 04:00] VITALS: BP 183/89; PULSE 67; RESP 16; TEMP 98.1; O2SAT 94
[2017-02-14 05:53] VITALS: BP 156/90
[2017-02-14] MEDS: SODIUM CHLOR 0.9% 1000 ML INJ 1,000 ML IV SCH (05:57)
[2017-02-14] MEDS: ACETAMINOPHEN/HYDROcodone 325 MG/5 MG TAB PO PRN (05:58)
--- NOTE | 2017-02-14 07:51 | PD.ONC.PN ---
Subjective Subjective Remarks Mr. Kaminski reports feeling much improved, he tells me the weakness of his left leg has completely resolved and that he is able to walk without difficulty or assistance. He denies headaches or visual disturbances. He denies seizure activity. He tells me he wants to go home today. Objective Data Date Time Temp Pulse Resp B/P Pulse Ox O2 Delivery O2 Flow Rate FiO2 02/14/17 05:53 156/90 02/14/17 04:00 98.1 67 16 183/89 94 02/14/17 00:00 97.2 69 18 162/92 95 02/13/17 21:33 64 02/13/17 20:00 96.8 86 18 153/83 96 02/13/17 15:30 96.3 81 20 148/87 95 02/13/17 11:40 97.1 95 20 134/81 95 02/13/17 07:50 96.7 78 20 128/75 94 Result Diagram: 02/13/1772602/13/17726 Culture Results Microbiology Date/Time Procedure Status Source Growth 02/12/17 20:35 Aerobic Blood Culture - Preliminary Resulted Blood Peripheral NO GROWTH IN 1 DAY 02/12/17 20:35 Anaerobic Blood Culture - Preliminary Resulted Blood Peripheral NO GROWTH IN 1 DAY 02/12/17 20:40 Aerobic Blood Culture - Preliminary Resulted Blood Peripheral NO GROWTH IN 1 DAY 02/12/17 20:40 Anaerobic Blood Culture - Preliminary Resulted Blood Peripheral NO GROWTH IN 1 DAY 02/12/17 23:20 Influenza Types A,B Antigen (BALTAZAR) - Final Complete Nasal Washing NEGATIVE FOR FLU A AND B ANTIGEN.... 02/13/17 06:20 - Final Complete Stool Stool NO ENTERIC PATHOGENS DETECTED BY PCR... Administered Medications Medications (Trade) Dose Ordered Sig/Simran Route PRN Reason Start Time Stop Time Status Last Admin Dose Admin Sodium Chloride (NS 1000 ml Inj) 1,000 ml @ 100 mls/hr Q10H IV 02/12/17 23:23 02/14/17 05:57 Acetaminophen/ Hydrocodone Bitart ([place] 5-325 Mg) 1 tab Q4H PRN PO PAIN SCALE 3 TO 5 02/12/17 23:30 02/14/17 05:58 Levetriacetam (Keppra) 500 mg Q12HR PO 02/13/17 09:00 02/13/17 19:47 Pantoprazole Sodium (Protonix) 40 mg DAILY PO 02/13/17 09:00 02/13/17 08:27 Levofloxacin (Levaquin) 500 mg DAILY PO 02/13/17 13:00 02/13/17 13:47 Dexamethasone (Decadron) 4 mg QID PO 02/13/17 18:00 02/13/17 19:46 Objective Remarks GENERAL: Elderly/middle-aged male, sitting up in bed, no acute distress, has a cushingoid appearance. SKIN: Warm and dry. HEAD: Normocephalic. EYES: No scleral icterus. No injection or drainage. NECK: Supple, trachea midline. No JVD or lymphadenopathy. LYMPHATIC: No adenopathy. CARDIOVASCULAR: Regular rate and rhythm without murmurs. RESPIRATORY: Breath sounds equal bilaterally. No accessory muscle use. GASTROINTESTINAL: Obese belly, Abdomen soft, non-tender, nondistended. EXTREMITIES: No cyanosis, or edema. MUSCULOSKELETAL: Adequate muscle tone. NEUROLOGICAL: No obvious focal deficit. Awake, alert, and oriented x3. PSYCHIATRIC: Appropriate mood and affect; insight and judgment normal. Assessment/Plan Assessment 66-year-old male who was diagnosed with a large left kidney renal cell carcinoma in 2012, status post left nephrectomy in the spring. He has had since then enlarging pulmonary metastases which she chose not to undergo treatment for. Earlier this year he was found to have multiple intracranial brain metastases, these have been treated with stereotactic radiosurgery (SRS). Several days ago he was completely tapered off of corticosteroids, some days after that he developed severe and profound weakness and inability to move his left leg. He was brought into the emergency department where repeat MRI of the brain was done, he was found to have definite evidence of vasogenic edema surrounding the previously treated brain metastases and perhaps evidence of increasing numbers of brain metastases as well. He has been resumed on corticosteroid therapy with dexamethasone and his neurological status is back to baseline. He no longer has measurable deficits. He tells me he continues to elect for alternative treatments as opposed to conventional systemic therapy. He tells me upon his discharge she would like to resume holistic medicine/homeopathic care. In my view the benefit of systemic chemotherapy at this juncture i.e. in a patient with suspected progressive multifocal intracranial metastases from renal cell carcinoma is quite equivocal. In my view he ought to be treated palliatively. Plan 1. Metastatic renal cell carcinoma with brain metastases: I will review the scans with our radiologist and the patient's primary radiation oncologist. Should he have progressive metastases already i.e. within 10 days of completion of stereotactic radiosurgery to the brain I think it would be appropriate to refer him to hospice. In the meantime continue antiseizure treatment with Keppra. Continue dexamethasone at at least 4 mg 3 times a day. He may be discharged from my standpoint. Sharath Cardoso MD Feb 14, 2017 07:51
[2017-02-14 08:00] VITALS: BP 173/86; PULSE 54; RESP 18; TEMP 97.4; O2SAT 94
--- NOTE | 2017-02-14 08:42 | HHI.PR ---
Subjective Remarks overall doing fine. weakness has much improved. says that ' he's back to his normal'. wants to go home. Objective Vitals Vital Signs Date Time Temp Pulse Resp B/P Pulse Ox O2 Delivery O2 Flow Rate FiO2 02/14/17 05:53 156/90 02/14/17 04:00 98.1 67 16 183/89 94 02/14/17 00:00 97.2 69 18 162/92 95 02/13/17 21:33 64 02/13/17 20:00 96.8 86 18 153/83 96 02/13/17 15:30 96.3 81 20 148/87 95 02/13/17 11:40 97.1 95 20 134/81 95 I/O 02/13/17 02/13/17 02/13/17 02/14/17 02/14/17 02/14/17 07:00 15:00 23:00 07:00 15:00 23:00 Intake Total 498 ml 1035 ml 800 ml 1720 ml Output Total 600 ml Balance -102 ml 1035 ml 800 ml 1720 ml Intake Oral 60 ml 1035 ml 720 ml IV Total 438 ml 800 ml 1000 ml Output Urine Total 600 ml # Voids 1 3 4 # Bowel Movements 3 0 0 Result Diagram: 02/13/1772602/13/17726 Imaging Last Impressions Chest X-Ray 02/12/172021 Signed Impressions: Service Date/Time: Sunday, February 12, 2017 20:53 - CONCLUSION: Peribronchial thickening with ill-defined basilar airspace disease. Differential diagnosis includes bronchopneumonia. Lior Ferraro MD Head CT 02/12/17 Signed Impressions: Service Date/Time: Sunday, February 12, 2017 22:27 - CONCLUSION: 1. Areas of edema involving both cerebral hemispheres secondary to underlying metastatic lesions which are better seen with the prior MRI. No hemorrhage or herniation. Omer Perdomo Jr., MD Entire Spine MRI 02/12/17 0000 Signed Impressions: Service Date/Time: Sunday, February 12, 2017 21:32 - CONCLUSION: 1. No metastatic lesions observed involving the spine. Omer Perdomo Jr., MD Brain MRI 02/12/17 0000 Signed Impressions: Service Date/Time: Sunday, February 12, 2017 21:32 - CONCLUSION: 1. Metastatic disease to the brain as above. Slight increase in enhancing nodularity in the right frontal lobe since the prior exam with a slight increase in edema. The other visualized lesions in the brain, supratentorial and infratentorial are relatively stable. No recent infarct. No mass effect or shift. Lior Ferraro MD Objective Remarks GENERAL: This is a well-nourished, well-developed patient, in no apparent distress. CARDIOVASCULAR: Regular rate and regular rhythm without murmurs, gallops, or rubs. RESPIRATORY: Clear to auscultation. Breath sounds equal bilaterally. No wheezes , rales, or rhonchi. GASTROINTESTINAL: Abdomen soft, non-tender, nondistended. Normal, active bowel sounds MUSCULOSKELETAL: Extremities without clubbing, cyanosis, or edema. NEURO: Alert & Oriented x4 to person, place, time, situation. Moves all ext x4 Procedures none Medications and IVs Current Medications Sodium Chloride (NS 1000 ml Inj) 1,000 ml @ 1,000 mls/hr Q1H ONCE IV Last administered on 02/12/17 20:49; Start 02/12/17 at 20:22; Stop 02/12/17 at 21:21 ; Status DC Lorazepam (Ativan Inj) 2 mg ONCE ONCE IV PUSH Last administered on 02/12/17 21:47; Start 02/12/17 at 21:15; Stop 02/12/17 at 21:16; Status DC Gadodiamide 20 ml 20 ml STK-MED ONCE IV Last administered on 02/12/17 22:01; Start 02/12/17 at 22:01; Stop 02/12/17 at 22:02; Status DC Sodium Chloride (NS 1000 ml Inj) 1,000 ml @ 100 mls/hr Q10H IV Last administered on 02/14/17 05:57; Start 02/12/17 at 23:23 Sodium Chloride (NS Flush) 2 ml UNSCH PRN IV FLUSH FLUSH AFTER USING IV ACCESS ; Start 02/12/17 at 23:30 Sodium Chloride (NS Flush) 2 ml BID IV FLUSH ; Start 02/13/17 at 09:00 Ondansetron HCl (Zofran Inj) 4 mg Q6H PRN IVP NAUSEA OR VOMITING; Start at 23:30 Bisacodyl (Dulcolax Supp) 10 mg DAILY PRN AR CONSTIPATION; Start 02/12/17 at 23 :30 Acetaminophen (Tylenol) 650 mg Q6H PRN PO FEVER/PAIN SCALE 1 TO 2; Start at 23:30 Acetaminophen/ Hydrocodone Bitart (Mary D 5-325 Mg) 1 tab Q4H PRN PO PAIN SCALE 3 TO 5 Last administered on 02/14/17 05:58; Start 02/12/17 at 23:30 Hydromorphone HCl (Dilaudid Pf Inj) 1 mg Q3H PRN IV Pain 6-10; Start 02/12/17 at 23:30 Levetriacetam (Keppra) 500 mg Q12HR PO Last administered on 02/13/17 19:47; Start 02/13/17 at 09:00 Pantoprazole Sodium (Protonix) 40 mg DAILY PO Last administered on 02/13/17 08 :27; Start 02/13/17 at 09:00 Dexamethasone Sodium Phosphate (Decadron Inj) 4 mg Q6HR IV PUSH Last administered on 02/13/17 12:45; Start 02/13/17 at 06:00; Stop 02/13/17 at 12:52 ; Status DC Dexamethasone Sodium Phosphate (Decadron Inj) 4 mg ONCE ONCE IV PUSH Last administered on 02/13/17 00:21; Start 02/12/17 at 23:30; Stop 02/12/17 at 23:31 ; Status DC Levofloxacin (Levaquin) 500 mg DAILY PO Last administered on 02/13/17 13:47; Start 02/13/17 at 13:00 Dexamethasone (Decadron) 4 mg QID PO Last administered on 02/13/17 19:46; Start 02/13/17 at 18:00 Diphenoxylate HCl/ Atropine (Lomotil Tab) 1 tab Q6H PRN PO DIARRHEA; Start at 12:45 A/P Assessment and Plan A/P 1. Metastatic Renal Cell CA: following w/ Dr. Cardoso and Dr. Nguyen, s/p radiation 2wks ago, known mets to Lung/Liver, currently on Dexamethasone PO. oncology f/u appreciated; will discharge on dexamethasone- cleared for discharge. 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 MRI Spine negative for mets. continue dexamethasone as noted above. Continue w/ Seizure Prophylaxis. Neuro checks q4h 3. LLE Weakness: improved. MRI Spine negative for metastatic lesion, MRI Brain w/ worsening edema, as above. 4. Renal Insufficiency: Chronic. will monitor. 5.diarrhea- C-diff negative. 6. DVT Prophylaxis: Pharmacologic contraindication in light of ADVERTISING ASSISTANT lesions. 7.possible bronchitis; continue abx Discharge Planning dc home. f/u; pcp and oncology. see med list. d/w the patient and oncology. Shawna Marquis MD Feb 14, 2017 08:41
[2017-02-14] MEDS ORDERED: DEXA4TAB PO (08:44)
[2017-02-14] MEDS ORDERED: LEVA500T PO (08:44)
--- NOTE | 2017-02-14 08:44 | HHI.DCPOC ---
Discharge Care Plan Diagnosis: (1) Brain metastasis Your Health Problems Are: Difficulty with ADL Loss of Movements Goals to Promote Your Health * To prevent worsening of your condition and complications * To maintain your health at the optimal level Directions to Meet Your Goals Take your medications as prescribed Follow your dietary instruction Follow activity as directed Keep your appointments as scheduled Take your immunizations and boosters as scheduled If your symptoms worsen call your PCP, if no PCP go to Urgent Care Center or Emergency Room Smoking is Dangerous to Your Health. Avoid second hand smoke Call the 24-hour hour crisis hotline for domestic abuse at Shawna Marquis MD Feb 14, 2017 08:44
--- NOTE | 2017-02-14 08:45 | HHI.DS ---
Discharge Summary Admission Date Feb 12, 2017 at 23:31 Discharge Date: Feb 14, 2017 Admitting Diagnosis brain mets. (1) Metastatic renal cell carcinoma ICD Code: C64.9 Diagnosis: Principal (2) Lower extremity weakness ICD Code: R29.898 Diagnosis: Principal (3) Renal insufficiency ICD Code: N28.9 Diagnosis: Secondary (4) Brain metastasis ICD Code: C79.31 Diagnosis: Principal Procedures none Brief History - From Admission This is a 66-year-old male with a PMH of Anxiety, Hyperlipidemia, CAD and Metastatic Renal Cell CA w/ Mets to Liver/Brain who was brought to the ER secondary to acute onset of LLE weakness starting earlier today. Following w/ Dr. Cardoso and Dr. Nguyen, on chronic steroids w/ plan for stereotactic radiation to brain lesions, last radiation approx 2wks ago. On arrival, BP 165/ 86, HR 108, O2 sat 95% on RA, Temp 99.2. CBC at baseline. Creatinine 1.40, producing 1.33 on 01/04/17. Lactic Acid 2.3, repeat pending. INR 1.0. CXR with peribronchial thickening and ill-defined basilar airspace disease, possibly bronchopneumonia. Dr. Cole consulted by ER physician, recommendation for MRI Brain and Spine. MRI Brain w/ slight increase in nodularity in right frontal lobe and slight increase in edema, MRI Spine negative for metastasis, recommendation for Decadron 4mg IV q6h. CBC/BMP: 02/13/17 0727 02/13/17 0727 Significant Findings Laboratory Tests Test 02/12/17 02/13/17 02/13/17 20:40 03:45 07:27 Red Blood Count 4.48 MIL/MM3 4.30 MIL/MM3 (4.50-5.90) (4.50-5.90) Hemoglobin 12.6 GM/DL 12.0 GM/DL (13.0-17.0) (13.0-17.0) Hematocrit 37.3 % 35.7 % (39.0-51.0) (39.0-51.0) Red Cell Distribution Width 19.6 % 19.4 % (11.6-17.2) (11.6-17.2) Mean Platelet Volume 6.1 FL 5.8 FL (7.0-11.0) (7.0-11.0) Neutrophils (%) (Auto) 83.1 % 89.8 % (16.0-70.0) (16.0-70.0) Lymphocytes (%) (Auto) 8.9 % 7.8 % (9.0-44.0) (9.0-44.0) Lymphocytes # (Auto) 0.7 TH/MM3 0.5 TH/MM3 (1.0-4.8) (1.0-4.8) Neutrophils % (Manual) 79 % (16-70) 72 % (16-70) Band Neutrophils % 8 % (0-6) 21 % (0-6) Lymphocytes % 7 % (9-44) 4 % (9-44) Myelocytes 2 % (0-0) Sodium Level 134 MEQ/L (136-145) Potassium Level 3.4 MEQ/L (3.5-5.1) Creatinine 1.40 MG/DL (0.60-1.30) Estimat Glomerular Filtration 51 ML/MIN (>89) 64 ML/MIN (>89) Rate Random Glucose 125 MG/DL 148 MG/DL (74-106) (74-106) Lactic Acid Level 2.3 mmol/L (0.4-2.0) Calcium Level 8.3 MG/DL 8.4 MG/DL (8.5-10.1) (8.5-10.1) Aspartate Amino Transf 9 U/L (15-37) 9 U/L (15-37) (AST/SGOT) Total Creatine Kinase 38 U/L (39-308) Troponin I LESS THAN 0.02 NG/ML (0.02-0.05) Total Protein 6.3 GM/DL 6.2 GM/DL (6.4-8.2) (6.4-8.2) Albumin 2.8 GM/DL 2.8 GM/DL (3.4-5.0) (3.4-5.0) Urine Occult Blood SMALL (NEG) Metamyelocytes 2 % (0-1) Ovalocytes 1+ (NORMAL) Imaging Last Impressions Chest X-Ray 3/25/17 2022 Signed Impressions: Service Date/Time: Sunday, February 12, 2017 20:53 - CONCLUSION: Peribronchial thickening with ill-defined basilar airspace disease. Differential diagnosis includes bronchopneumonia. Lior Ferraro MD Head CT 02/12/17 0000 Signed Impressions: Service Date/Time: Sunday, February 12, 2017 22:27 - CONCLUSION: 1. Areas of edema involving both cerebral hemispheres secondary to underlying metastatic lesions which are better seen with the prior MRI. No hemorrhage or herniation. Omer Perdomo Jr., MD Entire Spine MRI 02/12/17 0000 Signed Impressions: Service Date/Time: Sunday, February 12, 2017 21:32 - CONCLUSION: 1. No metastatic lesions observed involving the spine. Omer Perdomo Jr., MD Brain MRI 02/12/17 0000 Signed Impressions: Service Date/Time: Sunday, February 12, 2017 21:32 - CONCLUSION: 1. Metastatic disease to the brain as above. Slight increase in enhancing nodularity in the right frontal lobe since the prior exam with a slight increase in edema. The other visualized lesions in the brain, supratentorial and infratentorial are relatively stable. No recent infarct. No mass effect or shift. Lior Ferraro MD PE at Discharge GENERAL: This is a well-nourished, well-developed patient, in no apparent distress. CARDIOVASCULAR: Regular rate and regular rhythm without murmurs, gallops, or rubs. RESPIRATORY: Clear to auscultation. Breath sounds equal bilaterally. No wheezes , rales, or rhonchi. GASTROINTESTINAL: Abdomen soft, non-tender, nondistended. Normal, active bowel sounds MUSCULOSKELETAL: Extremities without clubbing, cyanosis, or edema. NEURO: Alert & Oriented x4 to person, place, time, situation. Moves all ext x4 Hospital Course 1. Metastatic Renal Cell CA: following w/ Dr. Cardoso and Dr. Nguyen, s/p radiation 2wks ago, known mets to Lung/Liver, currently on Dexamethasone PO. oncology f/u appreciated; will discharge on dexamethasone- cleared for discharge. 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 MRI Spine negative for mets. continue dexamethasone as noted above. Continue w/ Seizure Prophylaxis. Neuro checks q4h 3. LLE Weakness: improved. MRI Spine negative for metastatic lesion, MRI Brain w/ worsening edema, as above. 4. Renal Insufficiency: Chronic. will monitor. 5.diarrhea- C-diff negative. 6. DVT Prophylaxis: Pharmacologic contraindication in light of PIANO MECHANIC APPRENTICE lesions. 7.possible bronchitis; continue abx Pt Condition on Discharge: Fair Discharge Disposition: Discharge Home Discharge Time: <= 30 minutes Discharge Instructions DIET: Follow Instructions for: Heart Healthy Diet Activities you can perform: Regular-No Restrictions Follow up Referrals: Oncology PCP Follow-up New Medications: Levofloxacin (Levaquin) 500 Mg Tab 500 MG PO DAILY antibiotic Days 5 Ref 0 TAB Changed Medications: Dexamethasone (Dexamethasone) 4 Mg Tab 4 MG PO TID inflammation Days 21 Ref 0 TAB (Changed from: Q8HR; Removed Quantity ) Continued Medications: Hydrocodone-Acetaminophen (Hydrocodone-Acetaminophen) 5-325 mg Tab 1 TAB PO Q4H PRN PAIN Ref 0 TAB Levetiracetam (Keppra) 500 Mg Tab 500 MG PO Q12HR #60 TAB Pantoprazole (Pantoprazole) 40 Mg Tab 40 MG PO DAILY #30 TAB Shawna Marquis MD Feb 14, 2017 08:45
[2017-02-14] MEDS: SODIUM CHLORIDE 0.9% FLUSH 10 ML FLUSH IV FLUSH SCH (09:00)
[2017-02-14] MEDS: DEXAMETHASONE 4 MG TAB PO SCH (09:14)
[2017-02-14] MEDS: LEVOFLOXACIN 500 MG TAB PO SCH (09:15)
[2017-02-14] MEDS: levETIRAcetam 500 MG TAB PO SCH (09:15)
[2017-02-14] MEDS: PANTOPRAZOLE SOD 40 MG DELAYED RELEASE TAB PO SCH (09:15)
--- NOTE | 2017-02-16 09:49 | MB ---
cc: PARI GREEN,SAMUEL CARDOSO,DANYELLE BEAR,JOSÉ LUIS Prather M.D. DATE OF CONSULTATION: 02/13/2017 DIAGNOSIS Metastatic renal cell carcinoma, stage IV. CHIEF COMPLAINT Increase in diarrhea, weakness and fatigue. Headaches. Changes on MRI of the brain. REASON FOR CONSULTATION The patient is being evaluated for possible radiotherapy treatment options. HISTORY OF PRESENT ILLNESS This is a 66-year-old white male, patient of Dr. Cardoso and Dr. Bear. Dr. Bear treated him with radiosurgery to the brain for salvage. The patient completed radiation therapy in December. Per the patient Dr. Bear is ready to deliver some radiation therapy to his mediastinum. The patient was recently admitted with complaints of diarrhea where he felt very weak and almost passed out. As a result of this he was brought to the emergency room where he was evaluated and admitted for his condition. He complained of an increased left posterior headache and as a result of this an MRI was performed which showed new changes. I have been consulted for recommendations regarding further radiation to new changes to the brain. PAST MEDICAL HISTORY As above. Also history of coronary stent in 2007 and 1999, colonoscopy, left rotator cuff repair 2011. MEDICATIONS 1. Dexamethasone. 2. Keppra. 3. Lortab. 4. Protonix. ALLERGIES LIPITOR. FAMILY HISTORY No history of carcinoma in the family. SOCIAL HISTORY The patient denies any smoking history. The patient denies any ETOH intake. REVIEW OF SYSTEMS Upon review: CONSTITUTIONAL: The patient is doing well. Denies any major decrease in appetite. ALLERGIES: Has not had an allergic reaction recently. EYES: Unremarkable. ENT: Unremarkable. NECK: Unremarkable. INTEGUMENTARY: Unremarkable. CARDIOVASCULAR: Unremarkable. No chest pain. No clinical signs of [place]. RESPIRATORY: Unremarkable. Denies hemoptysis, cough, shortness of breath. GASTROINTESTINAL: The patient says now his diarrhea has been under control. He denies any nausea or vomiting. No rectal bleeding. GENITOURINARY: Unremarkable. MUSCULOSKELETAL: Unremarkable. NEUROLOGIC: The patient says he had a strong headache yesterday on the left posterior scalp, but this has resolved since and he has no other issues. Denies any neurological deficits. He has issues with short-term memory. No motor function deficits. No changes in personality. No clinical signs or symptoms of stroke. PSYCHIATRIC: Unremarkable. ENDOCRINE: Unremarkable. HEMATOLOGIC: Unremarkable. PHYSICAL EXAMINATION GENERAL: The patient is oriented x3, in no major acute distress or discomfort at the time of the evaluation. VITAL SIGNS: Temperature 96.3, pulse 81, respiratory rate 20, blood pressure 148/47, pulse ox 95%. LUNGS: Bilateral lungs are clear to auscultation with appropriate ventilatory respiratory effort. HEART: Regular rate and rhythm. No murmurs. NECK: Palpation of the neck and bilateral supraclavicular areas are free. ABDOMEN: Palpation of the abdomen reveals no hepatosplenomegaly, no periumbilical masses. No pain elicited. EXTREMITIES: No lower extremity edema detected. NEUROLOGIC: The patient remains stable without decrease in cognitive functions. No neurological deficit is detected. PATHOLOGY Surgical pathology as recorded. RADIOLOGY CT of the brain 02/12/2017, Impression: Areas of edema involving both cerebral hemispheres secondary to underlying metastatic lesions which are better seen with the prior MRI. No hemorrhage or herniation. MRI of the spine 02/12/2017, Impression: No metastatic lesions involving the spine. Brain MRI 02/12/2017, Impression: Metastatic disease to the brain. Slight increase in enhancement nodularity in the right frontal lobe since the prior exam with a slight increase in edema. The other visualized lesions in the brain, supratentorial and infratentorial are relatively stable. No recent infarct. No mass effect or shift. ASSESSMENT A 66-year-old white male diagnosed with metastatic renal cell carcinoma. The patient is being evaluated for radiation of pain regarding changes in the brain MRI. PLAN I had an extensive discussion with the patient and his in regards to his presenting condition. I discussed his case with Dr. Green also. I advised the patient that due to the changes in the brain he should have a discussion with Dr. Bear on how to proceed with radiation therapy. The patient says that he is set up to have radiation therapy to his mediastinum. I advised the patient that I will discuss his case with Dr. Bear and have him review the MRI, so that they can discuss how to best approach the possible lesions that he has in his right frontal area. The patient was advised that if I could be of any assistance to let me know. All his questions were answered. I am not going to intervene with the patient and will allow Dr. Bear to make recommendations to the patient on how to proceed. At this point there is no emergent need for radiation therapy to the brain. MD LYNNE Aranda/LETA /5:26 PM /9:10 AM BANDAR
== END 2017-02-14 10:55 | disposition home or self-care (01) | DRG 54 ==
LOC: NEPC 19:59 → NEDA 23:31 → HOCB 02-13 02:52
PROVIDERS: ADMIT Internal Medicine; ATTEND Internal Medicine
DX: C79.31 Secondary malignant neoplasm of brain (principal); G93.6 Cerebral edema; C78.00 Secondary malignant neoplasm of unspecified lung; C78.7 Secondary malignant neoplasm of liver and intrahepatic bile duct; R00.0 Tachycardia, unspecified; I25.10 Atherosclerotic heart disease of native coronary artery without angina pectoris; I10 Essential (primary) hypertension; E78.00 Pure hypercholesterolemia, unspecified; K44.9 Diaphragmatic hernia without obstruction or gangrene; R19.7 Diarrhea, unspecified; N28.9 Disorder of kidney and ureter, unspecified; G40.909 Epilepsy, unspecified, not intractable, without status epilepticus; M48.00 Spinal stenosis, site unspecified; H91.90 Unspecified hearing loss, unspecified ear; Z90.5 Acquired absence of kidney; Z82.49 Family history of ischemic heart disease and other diseases of the circulatory system; Z88.8 Allergy status to other drugs, medicaments and biological substances; Z79.52 Long term (current) use of systemic steroids; Z92.3 Personal history of irradiation; Z95.5 Presence of coronary angioplasty implant and graft; Z85.528 Personal history of other malignant neoplasm of kidney; J40 Bronchitis, not specified as acute or chronic; E78.5 Hyperlipidemia, unspecified
CPT/HCPCS: 70450; 70553; 71010; 72156; 72158; 77295; 77300; 77334; 80053; 81001; 82550; 83605; 84484; 85007; 85027; 85610; 85730; 87040; 87493; 87506; 87804; 93005; 96374; 99232; A9579; J1100; J2060; J7030; J8540

== ENCOUNTER 2017-03-20 20:10 | Inpatient (IN) | payer MEDICARE ==
[~2017-03-20] VITALS: Ht 190.5 cm; Wt 116.9 kg
[~2017-03-20 20:10] MED LIST changes: +LEVA500T PO
[2017-03-20 20:13] VITALS: BP 91/56; PULSE 120; RESP 36; TEMP 101.2; O2SAT 81
[2017-03-20 20:17] VITALS: BP 91/56; PULSE 120; RESP 36; TEMP 101.2; O2SAT 81
[2017-03-20 20:20] VITALS: RESP 28; O2SAT 77
[2017-03-20] MEDS ORDERED: AZITHROMYCIN INJ 500 MG in SODIUM CHLOR 0.9% 250 ML INJ 250 ML IV STA (20:28)
[2017-03-20] MEDS ORDERED: PIPERACIL-TAZO 4.5 GM PREMIX 100 ML IV STA (20:28)
--- NOTE | 2017-03-20 20:44 | PD ---
HPI Chief Complaint: Respiratory Distress Time Seen by Provider: 20:38 Travel History International Travel<30 days: No Contact w/Intl Traveler<30days: No Traveled to known affect area: No History of Present Illness HPI 66-year-old male with history of renal cell carcinoma diagnosed 3 years ago with metastases to the lung and brain, currently on radiation therapy to the brain, presents to the ER today brought in by family because they state that he had fallen a few days ago and hit his left rib area, now is having coughing, left rib pains, and feels more and more weak, subjective fevers at home. Patient also states that he is giving so weak that he has small amounts of stool incontinence. He states that the left rib pains worsens with movement and coughing and it is now 4 out of 10. Modifying Factors: None Associated Signs & Symptoms: Left rib pains, coughing, weakness, fevers after a recent fall Risk Factors: Stage IV renal cell carcinoma with metastases to the lung PFSH Past Medical History Blood Disorders: No Anxiety: Yes Depression: No Cancer: Yes (KIDNEY, LUNG, BRAIN) Cardiovascular Problems: Yes (STENTSx5) High Cholesterol: Yes Chemotherapy: No Diabetes: No Diminished Hearing: No Endocrine: No Gastrointestinal Disorders: Yes Genitourinary: Yes (KIDNEY CANCER) Hiatal Hernia: Yes Hypertension: Yes Immune Disorder: No Musculoskeletal: Yes Neurologic: No Psychiatric: Yes Reproductive: No Respiratory: Yes Immunizations Current: Yes Radiation Therapy: Yes Tetanus Vaccination: > 5 Years Influenza Vaccination: No Past Surgical History Surgical History: No Previous Surgery Cardiac Surgery: Yes (STENTSX5) Genitourinary Surgery: Yes (NEPHRECTOMY ) Neurologic Surgery: Yes (1 kidney r/t ca) Other Surgery: Yes (L SHOULDER) Family History Family Myocardial Infarction: Yes (father [place] at age 48) Social History Alcohol Use: Yes (social) Tobacco Use: No Substance Use: No Allergies-Medications (Allergen,Severity, Reaction): Coded Allergies: Lipitor (Verified Allergy, Unknown, 03/20/17) Reported Meds & Prescriptions Reported Meds & Active Scripts Active Dexamethasone 4 Mg Tab 4 Mg PO TID 21 Days Pantoprazole (Pantoprazole Sodium) 40 Mg Tab 40 Mg PO DAILY Keppra (Levetiracetam) 500 Mg Tab 500 Mg PO Q12HR Reported Hydrocodone-Acetaminophen 5-325 mg Tab 1 Tab PO Q4H PRN Review of Systems Except as stated in HPI: all other systems reviewed are Neg Physical Exam Narrative GENERAL: Well-developed tired appearing elderly white male patient currently none acute distress at rest. Awake and oriented 3. SKIN: Focused skin assessment warm/dry. HEAD: Atraumatic. Normocephalic. EYES: Pupils equal and round. No scleral icterus. No injection or drainage. ENT: No nasal bleeding or discharge. Mucous membranes pink and moist. NECK: Trachea midline. No JVD. CARDIOVASCULAR: Regular rate and rhythm. No murmur appreciated. RESPIRATORY: No accessory muscle use. Tender palpation of the left anterior chest wall and left lower lobe crackles on auscultation. Breath sounds equal bilaterally. GASTROINTESTINAL: Abdomen soft, non-tender, nondistended. Hepatic and splenic margins not palpable. MUSCULOSKELETAL: No obvious deformities. No clubbing. No cyanosis. No edema. NEUROLOGICAL: Awake and alert. No obvious cranial nerve deficits. Motor grossly within normal limits. Normal speech. PSYCHIATRIC: Appropriate mood and affect; insight and judgment normal. Data Data Last Documented VS Vital Signs Date Time Temp Pulse Resp B/P Pulse Ox O2 Delivery O2 Flow Rate FiO2 03/20/17 22:16 97 18 110/68 92 Nasal Cannula 10 80 03/20/17 20:17 101.2 Orders Complete Blood Count With Diff (03/20/17 20:28) Comprehensive Metabolic Panel (03/20/17 20:28) Lactic Acid Sepsis Protocol (03/20/17 20:28) Ckmb (Isoenzyme) Profile (03/20/17 20:28) Troponin I (03/20/17 20:28) Urinalysis - C+S If Indicated (03/20/17 20:28) Influenzae A/B Antigen (03/20/17 20:28) Blood Culture (03/20/17 20:28) Arterial Blood Gas (Abg) (03/20/17 20:28) Blood Glucose (03/20/17 20:28) Ecg Monitoring (03/20/17 20:28) Iv Access Insert/Monitor (03/20/17 20:28) Oximetry (03/20/17 20:28) Oxygen Administration (03/20/17 20:28) Piperacil-Tazo 4.5 Gm Premix (Zosyn 4.5 (03/20/17 20:28) Azithromycin Inj (Zithromax Inj) (03/20/17 20:28) B-Type Natriuretic Peptide (03/20/17 20:29) Ribs, Uni (W/Exp Cxr-Min 3vw) (03/20/17 20:34) Sodium Chlorid 0.9% 500 Ml Inj (Ns 500 M (03/20/17 20:45) Electrocardiogram (03/20/17 20:41) CKMB (03/20/17 20:45) CKMB% (03/20/17 20:45) Sodium Chlor 0.9% 1000 Ml Inj (Ns 1000 M (03/20/17 22:30) Admit Order (Ed Use Only) (03/20/17 22:27) Labs Laboratory Tests Test 03/20/17 03/20/17 03/20/17 20:40 20:45 20:55 Blood Gas Puncture Site RT RADIAL Blood Gas Patient Temperature 98.6 Blood Gas HCO3 21 mmol/L Blood Gas Base Excess -2.3 mmol/L Blood Gas Oxygen Saturation 91 % Arterial Blood pH 7.50 Arterial Blood Partial 27 mmHg Pressure CO2 Arterial Blood Partial 63 mmHG Pressure O2 Arterial Blood Oxygen Content 15.7 Vol % Arterial Blood 2.1 % Carboxyhemoglobin Arterial Blood Methemoglobin 0.6 % Blood Gas Hemoglobin 12.3 G/DL Oxygen Delivery Device NASAL CANNULA Blood Gas Liter Flow 4 L/M White Blood Count 6.8 TH/MM3 Red Blood Count 4.51 MIL/MM3 Hemoglobin 12.8 GM/DL Hematocrit 38.0 % Mean Corpuscular Volume 84.2 FL Mean Corpuscular Hemoglobin 28.3 PG Mean Corpuscular Hemoglobin 33.6 % Concent Red Cell Distribution Width 21.3 % Platelet Count 130 TH/MM3 Mean Platelet Volume 6.6 FL Neutrophils (%) (Auto) 82.8 % Lymphocytes (%) (Auto) 14.5 % Monocytes (%) (Auto) 1.4 % Eosinophils (%) (Auto) 0.7 % Basophils (%) (Auto) 0.6 % Neutrophils # (Auto) 5.6 TH/MM3 Lymphocytes # (Auto) 1.0 TH/MM3 Monocytes # (Auto) 0.1 TH/MM3 Eosinophils # (Auto) 0.1 TH/MM3 Basophils # (Auto) 0.0 TH/MM3 CBC Comment DIFF FINAL Differential Comment Sodium Level 127 MEQ/L Potassium Level 5.3 MEQ/L Chloride Level 94 MEQ/L Carbon Dioxide Level 21.2 MEQ/L Anion Gap 12 MEQ/L Blood Urea Nitrogen 27 MG/DL Creatinine 1.33 MG/DL Estimat Glomerular Filtration 54 ML/MIN Rate Random Glucose 143 MG/DL Calcium Level 7.9 MG/DL Total Bilirubin 1.2 MG/DL Aspartate Amino Transf 70 U/L (AST/SGOT) Alanine Aminotransferase 26 U/L (ALT/SGPT) Alkaline Phosphatase 94 U/L Total Creatine Kinase 122 U/L Creatine Kinase MB LESS THAN 0.5 NG/ML Troponin I 0.03 NG/ML B-Type Natriuretic Peptide 53 PG/ML Total Protein 6.6 GM/DL Albumin 2.5 GM/DL Lactic Acid Level 1.6 mmol/L MDM Medical Decision Making Medical Screen Exam Complete: Yes Emergency Medical Condition: Yes Medical Record Reviewed: Yes Interpretation(s) Laboratory Tests Test 03/20/17 03/20/17 20:40 20:45 Blood Gas HCO3 21 mmol/L (22-26) Blood Gas Base Excess -2.3 mmol/L (-2-2) Arterial Blood pH 7.50 (7.380-7.420) Arterial Blood Partial 27 mmHg (38-42) Pressure CO2 Hemoglobin 12.8 GM/DL (13.0-17.0) Hematocrit 38.0 % (39.0-51.0) Red Cell Distribution Width 21.3 % (11.6-17.2) Platelet Count 130 TH/MM3 (150-450) Mean Platelet Volume 6.6 FL (7.0-11.0) Neutrophils (%) (Auto) 82.8 % (16.0-70.0) Sodium Level 127 MEQ/L (136-145) Potassium Level 5.3 MEQ/L (3.5-5.1) Chloride Level 94 MEQ/L (98-107) Blood Urea Nitrogen 27 MG/DL (7-18) Creatinine 1.33 MG/DL (0.60-1.30) Estimat Glomerular Filtration 54 ML/MIN (>89) Rate Random Glucose 143 MG/DL (74-106) Calcium Level 7.9 MG/DL (8.5-10.1) Total Bilirubin 1.2 MG/DL (0.2-1.0) Aspartate Amino Transf 70 U/L (15-37) (AST/SGOT) Creatine Kinase MB LESS THAN 0.5 NG/ML (0.5-3.6) Albumin 2.5 GM/DL (3.4-5.0) Last 24 hours Impressions Ribs X-Ray 03/20/172033 Signed Impressions: Service Date/Time: Monday, March 20, 2017 21:33 - CONCLUSION: No definite displaced rib fractures and slight worsening parenchymal process in the lungs. Nallely To MD Differential Diagnosis General weakness, left rib pains, coughing, feverspneumonia versus CHF versus dehydration versus symptomatic anemia versus metabolic issues versus ACS versus rib fractures versus cancer related pain Narrative Course Fever and patient's symptoms concerning for underlying pneumonia. Sepsis protocol initiated and IV antibiotics initiated in the ER to cultures were drawn. Patient was put on high flow oxygen secondary to hypoxia. IV fluids were given in the ER. BNP is normal. Considering patient's vital signs, there is concern that he may have worsening of symptoms and sepsis. Case was discussed with Dr. Celis for admission for severe sepsis and he accepts admission. Aggregate critical care time was 35 minutes. Time to perform other separately billable procedures was not included in the critical care time. My time did not include minutes spent treating any other patients simultaneously or on activities that did not directly contribute to the patient's treatment. The services I provided to this patient were to treat and/or prevent clinically significant deterioration that could result in: Worsening respiratory distress, respiratory arrest, septic shock, I provided critical care services requiring my management, as noted below: Chart data review, documentation time, medication orders and management, vital sign assessments/reviewing monitor data, ordering and reviewing lab tests, ordering and interpreting/reviewing x-rays and diagnostic studies, care of the patient and discussion of the patient with the admitting physicians. Sepsis Criteria SIRS Criteria (2 or more): Heart rate over 90, RR > 20 or PaCO2 < 32 Severe Sepsis (+one): Hypotension Diagnosis Primary Impression: Severe sepsis Additional Impression: Pneumonia Admitting Information Admitting Physician Requests: Admit Jose Cast MD Mar 20, 2017 20:44
[2017-03-20] MEDS ORDERED: SODIUM CHLORID 0.9% 500 ML INJ 500 ML IV ONE (20:45)
[2017-03-20 21:00] VITALS: O2SAT 93
[2017-03-20 21:18] VITALS: RESP 28; O2SAT 77
[2017-03-20 21:27] LABS: BLOOD GAS BASE EXCESS -2.3 mmol/L (-2-2); BLOOD GAS CARBOXYHEMOGLOBIN 2.1 % (0-4); BLOOD GAS HCO3 21 mmol/L (22-26); BLOOD GAS METHEMOGLOBIN 0.6 % (0-2); BLOOD GAS O2 HGB SATURATION 91 % (90-100); BLOOD GAS OXYGEN CONTENT 15.7 Vol % (12.0-20.0); BLOOD GAS PCO2 27 mmHg (38-42); BLOOD GAS PO2 63 mmHG (61-120); BLOOD GAS TOTAL HGB 12.3 G/DL (12.0-16.0); TEMP CORR TO 98.6
[2017-03-20 21:28] LABS: CRITICAL VALUE NO; DRAW SITE RT RADIAL; LITER FLOW 4 L/M; NUMBER OF ARTERIAL PUNCTURES 1; OXYGEN DEVICE NASAL CANNULA; STAT YES; ULNAR PULSE PRESENT
[2017-03-20 21:42] LABS: AUTOMATED NEUTROPHIL # 5.6 TH/MM3 (1.8-7.7); BASOPHIL % 0.6 % (0.0-2.0); EOSINOPHIL # 0.1 TH/MM3 (0-0.4); EOSINOPHIL % 0.7 % (0.0-4.0); HEMO FLAGS DIFF FINAL; LYMPH % 14.5 % (9.0-44.0); MEAN CELL VOLUME 84.2 FL (80.0-100.0); MEAN CORPUSCULAR HEMOGLOBIN 28.3 PG (27.0-34.0); MEAN CORPUSCULAR HGB CONC 33.6 % (32.0-36.0); MONO % 1.4 % (0.0-8.0); NEUT % 82.8 % (16.0-70.0); PLATELET COUNT 130 TH/MM3 (150-450); RED BLOOD COUNT 4.51 MIL/MM3 (4.50-5.90); RED CELL DISTRIBUTION WIDTH 21.3 % (11.6-17.2); WHITE BLOOD COUNT 6.8 TH/MM3 (4.0-11.0)
--- NOTE | 2017-03-20 21:50 | RADRPT ---
EXAM DATE/TIME: 03/20/2017 21:33 [facility] COMPARISON: CHEST SINGLE AP, February 12, 2017, 20:53. INDICATIONS : Evaluate for rib trauma, fell MEDICAL HISTORY : None. SURGICAL HISTORY : None. ENCOUNTER: Initial ACUITY: 4 - 6 days PAIN SCORE: 0/10 LOCATION: Left chest FINDINGS: No definite displaced rib fractures or pneumothorax is identified. That there are bilateral mixed int erstitial and alveolar process process in the lungs slightly worse as compared to the prior exam. CONCLUSION: No definite displaced rib fractures and slight worsening parenchymal process in the l ungs. K. Kwesi To MD on March 20, 2017 at 21:46 Board Certified Radiologist. This report was verified electronically.
[2017-03-20 22:08] LABS: ANION GAP 12 MEQ/L (5-15); AST (GOT) 70 U/L (15-37); BICARBONATE 21.2 MEQ/L (21.0-32.0); BLOOD UREA NITROGEN 27 MG/DL (7-18); CHLORIDE 94 MEQ/L (98-107); GLOMERULAR FILTRATION RATE 54 ML/MIN (>89); SODIUM (NA) 127 MEQ/L (136-145)
[2017-03-20 22:09] LABS: POTASSIUM 5.3 MEQ/L (3.5-5.1)
[2017-03-20 22:11] LABS: ALKALINE PHOSPHATASE 94 U/L (45-117); ALT (GPT) 26 U/L (12-78); CREATINE KINASE 122 U/L (39-308); TOTAL BILIRUBIN ADULT 1.2 MG/DL (0.2-1.0)
[2017-03-20 22:16] VITALS: BP 110/68; PULSE 97; RESP 18; O2SAT 92
[2017-03-20 22:23] LABS: CKMB LESS THAN 0.5 NG/ML (0.5-3.6)
[2017-03-20] MEDS ORDERED: SODIUM CHLOR 0.9% 1000 ML INJ 1,000 ML IV ONE (22:30)
[2017-03-20 23:27] LABS: BACTERIA, URINE RARE /hpf; BLOOD, URINE MOD (NEG); GLUCOSE,URINE NEG (NEG); KETONE, URINE NEG (NEG); MUCUS URINE FEW /lpf (OCC); NITRITE,URINE NEG (NEG); RENAL EPITHELIAL CELLS <1 /hpf; URINE COLOR YELLOW (YELLW/STRAW)
[2017-03-20 23:28] LABS: COMMENT (UR) CATH-CULTURE IND; CULTURE IF INDICATED CATH CULTURE IND
[2017-03-20] MEDS ORDERED: MISCELLANEOUS NURSING INFORMATION XX SCH (23:30)
[2017-03-20] MEDS ORDERED: RESP: ALBUTEROL 2.5 MG/IPRATROPIUM 0.5 MG NEB (PRN) INH (23:30)
[2017-03-20] MEDS ORDERED: ONDANSETRON HCL 4 MG/2 ML VIAL IV PRN (23:30)
[2017-03-20] MEDS ORDERED: CHLORHEXIDINE GLUCONATE 2 % 1 PACK (2 CLOTHS) TOP PRN (23:30)
[2017-03-20] MEDS ORDERED: ACETAMINOPHEN 325 MG TAB PO PRN (23:30)
[2017-03-20] MEDS: levETIRAcetam 500 MG TAB PO SCH (23:30)
[2017-03-20] MEDS ORDERED: SENNOSIDES 8.6 MG TAB PO PRN (23:30)
[2017-03-20] MEDS ORDERED: Vancomycin Consult Pharmacy 1 EA OTHER SCH (23:30)
--- NOTE | 2017-03-20 23:47 | HHI.HP ---
HPI Service Critical Care Medicine Primary Care Physician Esther Forrester MD Admission Diagnosis shortness of breath/hypoxia/pneumonia/severe sepsis Diagnosis: Chief Complaint: SOB Travel History International Travel<30 Days: No Contact w/Intl Traveler <30 Da: No Traveled to Known Affected Are: No History of Present Illness 66 y/o man s/p diagnosis of renal cell carcinoma 3 years ago with subsequent recognition of lung and brain mets. Now undergoing brain irradiation. Has deteriorated to where he falls frequently. + fevers, SOB. Presents tonight with dehydration, hypotension, hyponatremia, hyperkalemia, and extreme lethargy. Past Family Social History Allergies: Coded Allergies: Lipitor (Verified Allergy, Unknown, 03/20/17) Past Medical History Past Medical History Blood Disorders: No Anxiety: Yes Depression: No Cancer: Yes (KIDNEY, LUNG, BRAIN) Cardiovascular Problems: Yes (STENTSx5) High Cholesterol: Yes Chemotherapy: No Diabetes: No Diminished Hearing: No Endocrine: No Gastrointestinal Disorders: Yes Genitourinary: Yes (KIDNEY CANCER) Hiatal Hernia: Yes Hypertension: Yes Immune Disorder: No Musculoskeletal: Yes Neurologic: No Psychiatric: Yes Reproductive: No Respiratory: Yes Immunizations Current: Yes Radiation Therapy: Yes Tetanus Vaccination: > 5 Years Influenza Vaccination: No Past Surgical History Surgical History: No Previous Surgery Cardiac Surgery: Yes (STENTSX5) Genitourinary Surgery: Yes (NEPHRECTOMY ) Neurologic Surgery: Yes (1 kidney r/t ca) Other Surgery: Yes (L SHOULDER) Family History Family Myocardial Infarction: Yes (father OR at age 48) Social History Alcohol Use: Yes (social) Tobacco Use: No Substance Use: No Allergies-Medications Allergies-Medications (Allergen,Severity, Reaction): Coded Allergies: Lipitor (Verified Allergy, Unknown, 03/20/17) Reported Meds & Prescriptions Reported Meds & Active Scripts Active Levaquin (Levofloxacin) 500 Mg Tab 500 Mg PO DAILY 5 Days Dexamethasone 4 Mg Tab 4 Mg PO TID 21 Days Pantoprazole (Pantoprazole Sodium) 40 Mg Tab 40 Mg PO DAILY Keppra (Levetiracetam) 500 Mg Tab 500 Mg PO Q12HR Reported Hydrocodone-Acetaminophen 5-325 mg Tab 1 Tab PO Q4H PRN Physical Exam Vital Signs Vital Signs Date Time Temp Pulse Resp B/P Pulse Ox O2 Delivery O2 Flow Rate FiO2 03/20/17 22:16 97 18 110/68 92 Nasal Cannula 10 80 03/20/17 22:16 92 03/20/17 21:00 93 High Flow Nasal Cannula 9.00 80 03/20/17 20:20 92 Nasal Cannula 10 80 03/20/17 20:20 28 77 Room Air 03/20/17 20:17 101.2 120 36 91/56 81 03/20/17 20:13 101.2 120 36 91/56 81 Physical Exam Gen: Labored breathing. Head: Round facies. Neck: Supple, airway widely patent. Lungs: Diffuse crackles, labored effort, accessory muscle use. Heart: NL S1S2, RRR, No JVD. Abdomen: Soft, mildly distended, BS active, no guarding. Extremities: Clammy, well perfused. Neuro: Forgetful but answers quickly. Moves 4 limbs. Laboratory Laboratory Tests Test 03/20/17 03/20/17 03/20/17 03/20/17 20:40 20:45 20:55 22:55 Blood Gas Puncture Site RT RADIAL Blood Gas Patient Temperature 98.6 Blood Gas HCO3 21 Blood Gas Base Excess -2.3 Blood Gas Oxygen Saturation 91 Arterial Blood pH 7.50 Arterial Blood Partial 27 Pressure CO2 Arterial Blood Partial 63 Pressure O2 Arterial Blood Oxygen Content 15.7 Arterial Blood 2.1 Carboxyhemoglobin Arterial Blood Methemoglobin 0.6 Blood Gas Hemoglobin 12.3 Oxygen Delivery Device NASAL CANNULA Blood Gas Liter Flow 4 White Blood Count 6.8 Red Blood Count 4.51 Hemoglobin 12.8 Hematocrit 38.0 Mean Corpuscular Volume 84.2 Mean Corpuscular Hemoglobin 28.3 Mean Corpuscular Hemoglobin 33.6 Concent Red Cell Distribution Width 21.3 Platelet Count 130 Mean Platelet Volume 6.6 Neutrophils (%) (Auto) 82.8 Lymphocytes (%) (Auto) 14.5 Monocytes (%) (Auto) 1.4 Eosinophils (%) (Auto) 0.7 Basophils (%) (Auto) 0.6 Neutrophils # (Auto) 5.6 Lymphocytes # (Auto) 1.0 Monocytes # (Auto) 0.1 Eosinophils # (Auto) 0.1 Basophils # (Auto) 0.0 CBC Comment DIFF FINAL Differential Comment Sodium Level 127 Potassium Level 5.3 Chloride Level 94 Carbon Dioxide Level 21.2 Anion Gap 12 Blood Urea Nitrogen 27 Creatinine 1.33 Estimat Glomerular Filtration 54 Rate Random Glucose 143 Calcium Level 7.9 Total Bilirubin 1.2 Aspartate Amino Transf 70 (AST/SGOT) Alanine Aminotransferase 26 (ALT/SGPT) Alkaline Phosphatase 94 Total Creatine Kinase 122 Creatine Kinase MB LESS THAN 0.5 Troponin I 0.03 B-Type Natriuretic Peptide 53 Total Protein 6.6 Albumin 2.5 Lactic Acid Level 1.6 Urine Color YELLOW Urine Turbidity CLEAR Urine pH 6.0 Urine Specific [place] 1.025 Urine Protein 30 Urine Glucose (UA) NEG Urine Ketones NEG Urine Occult Blood MOD Urine Nitrite NEG Urine Bilirubin NEG Urine Urobilinogen 2.0 Urine Leukocyte Esterase NEG Urine RBC 9 Urine WBC 2 Urine Renal Epithelial Cells <1 Urine Bacteria RARE Urine Mucus FEW Urine Sperm RARE Microscopic Urinalysis Comment CATH-CULTURE IND Date/Time Procedure Status Source Growth 03/20/17 22:55 Urine Culture Received Urine Catheterized Urine Pending 03/20/17 20:55 Aerobic Blood Culture Received Blood Peripheral Pending 03/20/17 20:55 Anaerobic Blood Culture Received Blood Peripheral Pending Result Diagram: 03/20/17204403/20/172044 Assessment and Plan Assessment and Plan Assessment: 1. Hypoxemic Respiratory Failure. 2. Widely metastatic renal cell carcinoma. 3. Severe dehydration. 4. Frequent falls. 5. Diffuse bilateral pulmonary interstitial infiltrates - possible lymphangitic spread? 6. Fever. Sepsis. Plan: 1. Aggressive hydration. 2. Clarification of code status, care goals. 3. Broad antibiotic coverage for pneumonia. 4. Blood cultures. 5. BiPAP for tachypnea. 6. Avoid diuresis tonight. 7. Neosynephrine to keep MAP > 65. Overall impression: New diffuse interstitial lung disease/fibrosis. , pneumonia or lymphangitic spread. Doubt fluid overload. He is critically ill with hypoxemic respiratory failure and will probably require intubation and ventilation. Critical Care 43 mins Freddie Rizzo MD Mar 20, 2017 23:47
[2017-03-21] VITALS (16 sets, daily range): BP systolic 114–157; BP diastolic 71–96; PULSE 54–95; RESP 16–29; TEMP 96.2–98.9; O2SAT 87–97
[2017-03-21] MEDS: SODIUM CHLOR 0.9% 1000 ML INJ 1,000 ML IV SCH ×3 (00:08→20:28)
[2017-03-21] MEDS: ENOXAPARIN SODIUM 40 MG/0.4 ML SYRINGE SQ SCH ×2 (00:23→23:52)
[2017-03-21] MEDS ORDERED: VANCOMYCIN 1,500 MG/NS 500 ML IV ONE ×2 (01:00)
[2017-03-21] MEDS: CHLORHEXIDINE GLUCONATE 2 % 1 PACK (2 CLOTHS) TOP SCH (01:00)
[2017-03-21] MEDS: PIPERACIL-TAZO 4.5 GM PREMIX 100 ML IV SCH ×4 (03:37→20:27)
[2017-03-21 06:41] LABS: MAGNESIUM 2.1 MG/DL (1.5-2.5); POTASSIUM 3.7 MEQ/L (3.5-5.1)
[2017-03-21 07:01] LABS: CALCIUM-PROTEIN CORRECTED 8.4 MG/DL (8.5-10.1)
[2017-03-21] MEDS: DEXAMETHASONE 4 MG TAB PO SCH ×3 (08:00→18:49)
[2017-03-21] MEDS: PANTOPRAZOLE SOD 40 MG DELAYED RELEASE TAB PO SCH (08:00)
[2017-03-21] MEDS: levETIRAcetam 500 MG TAB PO SCH ×2 (08:00→20:28)
[2017-03-21] MEDS: DOCUSATE SODIUM 100 MG CAP PO SCH ×2 (08:00→20:28)
[2017-03-21] MEDS: ACETAMINOPHEN/HYDROcodone 325 MG/5 MG TAB PO PRN ×3 (08:01→23:51)
--- NOTE | 2017-03-21 13:57 | HHI.CCPN ---
Subjective Remarks/Hospital Course 03/20: 66 y/o man s/p diagnosis of renal cell carcinoma 3 years ago with subsequent recognition of lung and brain mets. Now undergoing brain irradiation. Has deteriorated to where he falls frequently. + fevers, SOB. Presents tonight with dehydration, hypotension, hyponatremia, hyperkalemia, and extreme lethargy. 03/21: Sitting up in bed on nasal cannula. Feels that his breathing has improved significantly. Denies any diarrhea currently. He did have diarrhea one day prior to admission. Objective Vital Signs Date Time Temp Pulse Resp B/P Pulse Ox O2 Delivery O2 Flow Rate FiO2 03/21/17 10:05 Nasal Cannula 5.00 03/21/17 08:00 74 03/21/17 07:00 99 03/21/17 04:00 98.4 24 148/79 03/21/17 01:00 80 Result Diagram: 03/20/17204403/21/17 0414 Other Results Laboratory Tests Test 03/20/17 20:40 Blood Gas Puncture Site RT RADIAL Blood Gas Patient Temperature 98.6 Blood Gas HCO3 21 mmol/L (22-26) Blood Gas Base Excess -2.3 mmol/L (-2-2) Blood Gas Oxygen Saturation 91 % (90-100) Arterial Blood pH 7.50 (7.380-7.420) Arterial Blood Partial 27 mmHg (38-42) Pressure CO2 Arterial Blood Partial 63 mmHG Pressure O2 (61-120) Arterial Blood Oxygen Content 15.7 Vol % (12.0-20.0) Arterial Blood 2.1 % (0-4) Carboxyhemoglobin Arterial Blood Methemoglobin 0.6 % (0-2) Blood Gas Hemoglobin 12.3 G/DL (12.0-16.0) Oxygen Delivery Device NASAL CANNULA Blood Gas Liter Flow 4 L/M Imaging Last Impressions Ribs X-Ray 03/20/172033 Signed Impressions: Service Date/Time: Monday, March 20, 2017 21:33 - CONCLUSION: No definite displaced rib fractures and slight worsening parenchymal process in the lungs. Nallely To MD Objective Remarks Gen: Elderly male sitting up in bed not in any acute distress Head: Round facies. Neck: Supple, airway widely patent. Lungs: Good air entry bilaterally, clear to auscultation Heart: NL S1S2, RRR, No JVD. Abdomen: Soft, mildly distended, BS active, no guarding. Extremities: Warm bilaterally, no edema Neuro: Forgetful but answers quickly. Moves 4 limbs. A/P Assessment and Plan Assessment: 1. Hypoxemic Respiratory Failure. 2. Widely metastatic renal cell carcinoma. 3. Severe dehydration. 4. Frequent falls. 5. Diffuse bilateral pulmonary interstitial infiltrates - possible lymphangitic spread? 6. Fever. Sepsis. Plan: 1. Hydration. 2. Clarification of code status, care goals. 3. Broad antibiotic coverage for pneumonia. 4. Blood cultures. 5. On nasal cannula 6. Avoid diuresis 7. Not requiring pressors. Consulted Dr. Watson his oncologist to discuss further plan of care with his metastatic disease. Consult palliative care to assist with deciding goals of therapy. Patient will be transferred out of ICU to hospitalist service for further medical management. Overall impression: New diffuse interstitial lung disease/fibrosis. , pneumonia or lymphangitic spread. Doubt fluid overload. Respiratory status seems to have improved overnight. Diaz Mondragon MD March 21, 2017 13:56
[2017-03-21] MEDS: VANCOMYCIN INJ 1,750 MG in SODIUM CHLORID 0.9% 500 ML INJ 500 ML IV SCH (14:03)
[2017-03-21] MEDS: AZITHROMYCIN INJ 500 MG in SODIUM CHLOR 0.9% 250 ML INJ 250 ML IV SCH (20:29)
--- NOTE | 2017-03-21 22:53 | EKG ---
Date Performed: 03/20/2017 Time Performed: 20:41:37 PTAGE: 66 years EKG: SINUS TACHYCARDIA POSSIBLE LEFT ATRIAL ENLARGEMENT LEFT VENTRICULAR HYPERTROPHY AND ST-T CH DAVIDE ABNORMAL ECG NO PREVIOUS TRACING DOCTOR: Stanley Burgess Interpretating Date/Time 03/21/2017 22:53:11
[2017-03-22] VITALS (7 sets, daily range): BP systolic 139–160; BP diastolic 78–87; PULSE 54–89; RESP 18; TEMP 96.1–97.2; O2SAT 94–98
[2017-03-22] MEDS: VANCOMYCIN INJ 1,750 MG in SODIUM CHLORID 0.9% 500 ML INJ 500 ML IV SCH ×2 (01:30→12:43)
[2017-03-22] MEDS: CHLORHEXIDINE GLUCONATE 2 % 1 PACK (2 CLOTHS) TOP SCH (04:00)
[2017-03-22] MEDS: PIPERACIL-TAZO 4.5 GM PREMIX 100 ML IV SCH ×4 (05:06→19:45)
[2017-03-22] MEDS: SODIUM CHLOR 0.9% 1000 ML INJ 1,000 ML IV SCH ×2 (05:07→16:19)
[2017-03-22 06:59] LABS: AUTOMATED NEUTROPHIL # 3.7 TH/MM3 (1.8-7.7); EOSINOPHIL % 0.1 % (0.0-4.0); HEMATOCRIT 29.9 % (39.0-51.0); LYMPH % 11.4 % (9.0-44.0); LYMPHOCYTE # 0.5 TH/MM3 (1.0-4.8); MEAN CELL VOLUME 83.2 FL (80.0-100.0); MEAN CORPUSCULAR HEMOGLOBIN 28.2 PG (27.0-34.0); MEAN CORPUSCULAR HGB CONC 33.9 % (32.0-36.0); MONO % 1.7 % (0.0-8.0); NEUT % 86.8 % (16.0-70.0); PLATELET COUNT 117 TH/MM3 (150-450); RED CELL DISTRIBUTION WIDTH 20.9 % (11.6-17.2); WHITE BLOOD COUNT 4.3 TH/MM3 (4.0-11.0)
--- NOTE | 2017-03-22 07:02 | RADRPT ---
EXAM DATE/TIME: 03/22/2017 05:10 [facility] COMPARISON: CHEST SINGLE AP, February 12, 2017, 20:53. INDICATIONS : Short of breath, no chest pain, nonsmoker MEDICAL HISTORY : Metastatic disease. Hypertension. renal cell ca with lung and brain metastatic disease SURGICAL HISTORY : nephrectomy, shoulder surgery ENCOUNTER: Subsequent ACUITY: 3 days PAIN SCORE: 0/10 LOCATION: Bilateral chest FINDINGS: The cardiac silhouette is enlarged in transverse diameter. There is bilateral lower lobe atelectasis versus pneumonia. Upper lung zones are clear. No pleural effusions are identified. CONCLUSION: 1. Bibasilar atelectasis versus pneumonia. Norman Law MD on March 22, 2017 at 7:00 Board Certified Radiologist. This report was verified electronically.
[2017-03-22 07:12] LABS: HEMO FLAGS AUTO DIFF
[2017-03-22 07:31] LABS: ALT (GPT) 19 U/L (12-78); ANION GAP 8 MEQ/L (5-15); AST (GOT) 29 U/L (15-37); BICARBONATE 24.6 MEQ/L (21.0-32.0); BLOOD UREA NITROGEN 21 MG/DL (7-18); CHLORIDE 104 MEQ/L (98-107); GLOMERULAR FILTRATION RATE 78 ML/MIN (>89); MAGNESIUM 2.1 MG/DL (1.5-2.5); POTASSIUM 3.9 MEQ/L (3.5-5.1); SODIUM (NA) 137 MEQ/L (136-145)
[2017-03-22 07:33] LABS: ALKALINE PHOSPHATASE 72 U/L (45-117); TOTAL BILIRUBIN ADULT 0.7 MG/DL (0.2-1.0)
[2017-03-22 08:02] LABS: BANDS 16 % (0-6); METAMYELOCYTES 2 % (0-1); MYELOCYTES 2 % (0-0); NEUTROPHIL # MANUAL DIFF 3.7 TH/MM3 (1.8-7.7); POLYS (SEG NEUTROPHILS) 65 % (16-70); WBC DIFF SAMPLE 100
[2017-03-22 08:05] LABS: OVALOCYTES 1+ (NORMAL); PLATELET ESTIMATE SMEAR LOW (NORMAL); PLATELET MORPHOLOGY NORMAL (NORMAL); SCAN/DIFF FINAL DIFF MANUAL
[2017-03-22] MEDS: DOCUSATE SODIUM 100 MG CAP PO SCH ×2 (09:00→19:49)
[2017-03-22] MEDS: NYSTATIN SUSP 500,000 U/5 ML CUP SWISH-SWAL SCH ×4 (09:00→23:33)
--- NOTE | 2017-03-22 09:22 | MB ---
cc: DANYELLE MARIE MD, VIVIANE M. MD KROCHAK, RONALD J. M.D. DATE OF CONSULTATION: 03/22/2017 DATE OF : 1950 Consult requested by the hospitalist service. REASON FOR CONSULTATION Patient with diagnosis of metastatic renal cell carcinoma. He comes into the hospital with complaints of increasing difficulty breathing, fevers, fatigue, weakness and diarrhea. CHIEF COMPLAINT As noted above. The patient reports presently feeling much improved. HISTORY OF PRESENT ILLNESS Mr. Kaminski is a very pleasant 66-year-old male who is well-known to me from my outpatient practice. Mr. Kaminski carries a diagnosis of metastatic renal cell carcinoma. He was diagnosed with renal cell carcinoma initially in 2012 when he was found to have a large left renal mass measuring in excess of 10 cm. 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 In fact his initial reason for referral to me was for management of severe microcytic anemia. The patient did eventually undergo a radical left nephrectomy in December 2013; this was performed at the [facility] in [place]. He selected this institution because it was a bloodless surgical center. Following surgical resection the patient did well and his microcytic anemia resolved. He unfortunately over the years was noted to have progressively enlarging pulmonary metastases. The patient had been recommended palliative systemic therapy but he declined in favor of observation given his lack of symptoms. Unfortunately, several months ago he developed metastatic disease to the brain which was multifocal and this was treated in I believe January and February with stereotactic brain radiation. The outcome of the treatment is yet to be reassessed with imaging studies. Mr. Kaminski had been on corticosteroids with dexamethasone at a relatively high dose for management of vasogenic edema over the past month and half. Mr. Kaminski reports having had progressive weakness over the past week and a half. He reports having difficulty getting up out of a chair or getting up off the commode in particular. He also reports having difficulty getting in and out of his truck. He tells me that he fell after tripping in his yard. He fell on his left side and since he fell he has had pain along the anterior lower left ribs. Per the patient's the patient had been generally fatigued, weak and feverish. He did not have a documented temperature at home but felt cold even under multiple blankets. About 48 hours prior to admission he developed diarrhea. The diarrhea along with fatigue and chills triggered this ER visit. The patient in the emergency department was noted to have a temperature of 101.2 degrees Fahrenheit. Imaging studies revealed possible atelectasis of the lower lobes bilaterally and he was admitted to the hospital for empiric antimicrobial therapy. He feels much improved at today's visit. PAST MEDICAL HISTORY 1. Metastatic renal cell carcinoma. 2. Metastatic renal cell carcinoma to the brain. 3. Metastatic renal cell carcinoma to the lungs. 4. Coronary artery disease. 5. Chronic renal insufficiency. 6. Spinal stenosis. 7. Osteoarthritis. 8. Hypertension. 9. Chronic anemia. PAST SURGICAL HISTORY 1. EGD and colonoscopy. 2. Coronary artery stent placement. 3. Left rotator cuff surgery. 4. Left radical nephrectomy. 5. Arterial embolization of the left kidney prior to undergoing nephrectomy. 6. Bone marrow biopsies and aspiration. FAMILY HISTORY Mother had Alzheimer's disease. She at the age of 80. Father of coronary artery disease at the age of 48. SOCIAL HISTORY The patient is . He has worked in [employer] and [employer]. He lives at home with his . He drinks occasionally, less than one drink per month. He denies having a history of tobaccoism. 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 MEDICATIONS Current inpatient medications: 1. Nystatin 5 mL swish and swallow four times a day. 2. Azithromycin 500 mg IV q.24h. 3. Zosyn 4.5 grams IV q.6h. 4. Normal saline 100 cc per hour. 5. Vancomycin 1750 mg q.12h. 6. Tylenol/hydrocodone 325/5 mg p.o. q.4h. as needed for pain. 7. Tylenol 650 mg p.o. q.6h. 8. Chlorhexidine; I believe topical. 9. Dexamethasone 2 mg p.o. b.i.d. 10.Colace 100 mg p.o. b.i.d. 11.Lovenox 40 mg subcu q.24h. 12.Keppra 500 mg p.o. q.12h. 13.Ondansetron 4 mg IV q.6h. as needed for nausea and vomiting. 14.Pantoprazole 40 mg p.o. daily. 15.Senokot 17.2 mg p.o. q.12h. as needed for constipation. REVIEW OF SYSTEMS A 13-point review of systems is obtained. The following are the pertinent positives and negatives: CONSTITUTIONAL: Fatigue, feverish feeling, chills, increased appetite, weight gain. HEENT: Denies headaches, blurry vision, difficulty swallowing, visual field deficit. He reports having dryness in the mouth but denies soreness in the throat. RESPIRATORY: Reports exertional dyspnea. Reports pain along the left anterior lower chest wall. Denies cough or hemoptysis. CARDIOVASCULAR: Denies angina-like chest pain, PND, orthopnea. GASTROINTESTINAL: Denies nausea, vomiting, diarrhea, hematochezia or melena. GENITOURINARY: No complaints. MUSCULOSKELETAL: Feels his calf muscles are atrophying. He reports weakness of his hips, especially when he is trying to stand. No other complaints reported. PHYSICAL EXAMINATION VITAL SIGNS: Temperature 96.1 degrees Fahrenheit, heart rate 65 beats per minute, blood pressure 160/87, O2 sats 94% on three liters nasal cannula, respiratory rate 18. GENERAL APPEARANCE: Mr. Kaminski is a middle-aged/elderly male. He has a cushingoid appearance and has gained a significant amount of weight since I last saw him. He is in no acute distress. His is at bedside. HEENT: Head is atraumatic and normocephalic. Conjunctivae are not pale. Sclerae are anicteric. EOMI. PERRLA. No pharyngeal erythema. NECK: No palpable cervical or supraclavicular lymphadenopathy. PULMONARY: Good air movement bilaterally over the upper and middle lung zones. Decreased bibasilar breath sounds. Prolonged expiratory phase. CARDIOVASCULAR: Regular rate and rhythm, S1, S2. No obvious murmurs, rubs or gallops. ABDOMEN: Obese belly, soft, tympanic to percussion, no organ enlargement. Fully healed left-sided subcostal surgical incision scar is noted. EXTREMITIES: No pretibial edema or calf tenderness. 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 LABORATORY FINDINGS Blood work dated 03/22/2017: WBC count 4.3, hemoglobin 10.1 gm/dl, hematocrit 30%, MCV 83, platelet count 117, absolute neutrophil count 3.7. Chemistries: Sodium 137, potassium 3.9, chloride 104, bicarbonate 24.6, BUN 21, creatinine 0.97, random glucose 180, calcium 8.2, magnesium 2.1, total bilirubin 0.7, AST 29, ALT 19, alkaline phosphatase 72, albumin 2.2. IMAGING STUDIES Chest x-ray dated 03/22/2017 reveals bibasilar atelectasis versus pneumonia. ASSESSMENT Mr. 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 He is status post stereotactic radiosurgery to the multiple brain lesions. The radiation to his brain lesions was completed in mid February 2017. Restaging imaging scans are pending at this time. It is, however, notable that his visual field deficits and other sensory neural deficits have completely resolved since he completed radiation. He remains on corticosteroid therapy for management of vasogenic edema as well as seizure prophylaxis with Keppra. Additionally, his largest pulmonary lesion which was a right-sided anterior mediastinal/right lung mass was treated with external beam radiation with treatment completed within the last week or two. The patient presents to the hospital with complaints of progressive fatigue, weakness, diarrhea, low grade fever and chills. RECOMMENDATIONS 1. Metastatic renal cell carcinoma: He is scheduled for restaging MRI of the brain in late March. I have requested my office to move that scan up to the middle of March. He has in the past declined systemic therapeutic options. He has, however, accepted palliative radiation. The patient's overall prognosis depends essentially on his response to treatment rendered thus far. We are optimistic that he will not have additional areas of disease in his brain parenchyma. 2. Corticosteroid therapy: He has been on long-term dexamethasone at relatively high doses. 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 I have therefore decrease the dexamethasone dosing to 2 mg twice daily. I have given the patient hand written instructions for further tapering as well. 3. Thrush: The patient has oropharyngeal candidiasis likely secondary to dexamethasone and he has been initiated on Nystatin swish and swallow 5 mL four times daily. 4. Recent fever and diarrhea: I suspect he may have had some sort of a viral infection which may have resulted in the symptoms of upper respiratory tract complaints and diarrhea. Empiric antibiotic coverage is reasonable. I would, however, recommend de-escalating him as soon as possible and discharging him home on some empiric oral antibiotics. 5. I will schedule follow-up with me in the upcoming 2-3 weeks in my [place] office. 6. The patient is cleared for discharge from an oncology standpoint once he remains afebrile and his antibiotics have been transitioned to oral. Please note his dexamethasone has been tapered down to 2 mg twice daily. Outpatient follow-up and imaging scans have been scheduled. MD ANDRES Cowart/LETA /8:31 AM /8:57 AM
[2017-03-22] MEDS: PANTOPRAZOLE SOD 40 MG DELAYED RELEASE TAB PO SCH (09:59)
[2017-03-22] MEDS: levETIRAcetam 500 MG TAB PO SCH ×2 (09:59→19:48)
[2017-03-22] MEDS: DEXAMETHASONE 4 MG TAB PO SCH ×2 (10:00→19:48)
--- NOTE | 2017-03-22 12:36 | HHI.PR ---
Subjective Remarks Resting in bed comfortably, answer simple question, afebrile Blood pressure not optimal 160/87 patient on 3 L nasal cannula Objective Vitals Vital Signs Date Time Temp Pulse Resp B/P Pulse Ox O2 Delivery O2 Flow Rate FiO2 03/22/17 11:02 98 Nasal Cannula 3.00 03/22/17 08:00 96.1 54 18 156/87 97 03/22/17 04:00 96.1 65 18 160/87 94 03/21/17 23:30 91 Nasal Cannula 3.50 03/21/17 23:07 54 03/21/17 22:20 96.2 57 17 147/79 91 03/21/17 20:53 93 Nasal Cannula 3.00 03/21/17 18:00 78 03/21/17 16:00 67 03/21/17 16:00 98.0 67 29 152/85 94 03/21/17 14:00 83 I/O 03/21/17 03/21/17 03/21/17 03/22/17 03/22/17 03/22/17 07:00 15:00 23:00 07:00 15:00 23:00 Intake Total 2027 ml 1821 ml 600 ml Output Total 1125 ml 775 ml Balance 902 ml 1046 ml 600 ml Intake Oral 0 ml 980 ml IV Total 2027 ml 841 ml 600 ml Output Urine Total 1125 ml 775 ml # Voids 1 1 # Bowel Movements 1 Result Diagram: 03/22/17 0554 03/22/17 0554 Objective Remarks GENERAL: This is a frail 66 years old patient in no apparent distress. CARDIOVASCULAR: Regular rate and rhythm without murmurs, gallops, or rubs. RESPIRATORY: Diminished breath sounds bibasilar GASTROINTESTINAL: Abdomen soft, non-tender, nondistended. Normal active bowel sounds MUSCULOSKELETAL: Extremities without clubbing, cyanosis, or edema. NEURO: Awake alert answer simple questions A/P Assessment and Plan 03/22: We'll add Norvasc to optimize blood pressure, CBC BMP in a.m., reviewed note from oncologist he will follow patient as an outpatient 1. Hypoxemic Respiratory Failure. 2. Widely metastatic renal cell carcinoma. 3. Severe dehydration. 4. Frequent falls. 5. Diffuse bilateral pulmonary interstitial infiltrates - possible lymphangitic spread? 6. Fever. Sepsis. Plan: 1. Hydration. 2. Clarification of code status, care goals. 3. Broad antibiotic coverage for pneumonia. 4. Blood cultures. 5. On nasal cannula 6. Avoid diuresis 7. Not requiring pressors. Oncologist and palliative care consulted Afshin Kirkland MD March 22, 2017 12:36
[2017-03-22] MEDS: amLODIPine BESYLATE 5 MG TAB PO SCH (13:00)
--- NOTE | 2017-03-22 15:13 | PD.CONS ---
Consult Service Palliative Care Consult Requested By Dr Mondragon. Primary Care Physician Esther Forrester MD Reason for Consultation a. To assist with evaluation and management of symptoms including: dyspnea, weakness b. To assist medical decision maker(s) with: better understanding of current medical conditions; weighing benefits/burdens of medical treatment options; making medical treatment decisions. HPI History of Present Illness This 66 year old male presented to [place] ED 03/20/17, with family, with reports that the patient had fallen a few days prior striking his left rib area and was now having coughing, left rib pain and feeling more weak, subjective fevers. Patient also indicated he was feeling so weak that he was having small amounts of stool incontinence. Left rib pain worsens with movement and coughing. 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 * CXR= no definite displaced rib fracture , slight worsening parenchymal process in the lungs. IV antibiotics initiated and cultures obtained for presumed sepsis. Received IV fluids, high flow oxygen for hypoxia. He was admitted for further evaluation and management to the ICU. * Patient was initiated on BiPAP for the tachypnea. Continue IV hydration, Rafael- Synephrine as needed for hypotension. * 03/21 improving somewhat sitting up in bed tolerating nasal cannula. Known oncologist Dr. Cardoso was consulted to further discuss prognosis and plan of care with the patient regarding metastatic disease, palliative care also consulted to assist with clarification of goals of treatment. * Oncology consulted: Notes patient with multiple brain metastasis as well as multiple pulmonary metastasis. Completed stereotactic radiosurgery to the multiple brain lesions mid February of this year. Restaging imaging is pending at time of consultation. He does note however that visual field deficits and other sensory deficits have completely resolved since completion of radiation. He does remain on corticosteroids and seizure prophylaxis. The largest pulmonary lesion which is right-sided anterior mediastinal was treated with external beam radiation in the past week or 2. Was planned for restaging MRI of the brain in late March, oncology has requested move this up to mid March, further notes that in the past patient has declined systemic therapeutic treatments but has accepted palliative radiation. Overall prognosis depends essentially on his response to the treatments thus far. Oncologist notes optimism that he will not have additional areas of disease in brain parenchyma. 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 Recommends de-escalating antibiotic coverage as soon as appropriate, reasonable to discharge home on empiric oral antibiotics. Plan for oncology follow-up outpatient in 2-3 weeks. * Palliative care has been previously consulted and evaluated the patient during a prior admission on 01/04/17, was seen by Dr Douglass Patient seen in room with at bedside.Dual visit kenneth HUMPHREY. Patient is alert, oriented, pleasant and cooperative. Indicates overall feeling better today. No pain. Good appetite. Her GI complaints. Still with some shortness of breath but better than before. No oral pain though says he does feel fuzzy spots in his mouth. Oncology hx per EMR: Per review of records, patient with hospital admission in January of this year for diarrhea for for 5 days, cough, and left leg weakness. Neuro status resumed to baseline once steroids were resumed. Stools were negative for C. difficile. During that admission oncologist Dr. Cardoso notes that patient desired to continue alternative treatments as opposed to conventional systemic therapy, patient desired to resume his holistic/homeopathic care. Dr. Cardoso further notes " In my view the benefit of systemic chemotherapy at this juncture i.e. in a patient with suspected progressive multifocal intracranial metastases from renal cell carcinoma is quite equivocal.In my view he ought to be treated palliatively." At this admission Dr. Cardoso also notes ongoing discussions with radiation oncologist, should the patient's experience progressive metastasis ie within 10 days of completion of review surgery to brain would be appropriate to refer to hospice. Per further review of EMR apparently upon initial diagnoses patient was recommended for palliative systemic therapy but declined and instead elected observation only. He had apparently been seeking alternative therapies. 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 During various points of his treatment course he was noted to have progression of pulmonary nodules which were felt to be metastatic, he had been offered palliative systemic therapy at various points no declined those interventions in favor of holistic and homeopathic treatments. He did not want the side effects associated with conventional treatment. Apparently had a particularly large pulmonary metastasis encroaching on the right atrium, at which point he met with radiation oncology and declined radiation for this. Review of Systems Constitutional: DENIES: Fever, Change in appetite, Pain Eyes: DENIES: Vision loss Respiratory: COMPLAINS OF: Cough, Shortness of breath, DENIES: Sputum production Cardiovascular: COMPLAINS OF: Dyspnea on Exertion, DENIES: Lower Extremity Edema Gastrointestinal: COMPLAINS OF: Diarrhea (intermittent), DENIES: Abdominal pain, Nausea, Vomiting, Difficulty Swallowing Neurologic: DENIES: Localized weakness, Speech Problems Psychiatric: DENIES: Anxiety, Confusion Past Family Social History Coded Allergies: Lipitor (Verified Allergy, Unknown, 03/20/17) Past Medical History Renal cell carcinoma-dx 2012 now with metastasis to lung, brain (brain metastasis identified 2016) -- status post radiation CAD Chronic renal insufficiency Spinal stenosis Osteoarthritis Hypertension Chronic anemia . Past Surgical History EGD, colonoscopy Coronary artery stent Left rotator cuff surgery Left radical nephrectomy 2014 Arterial embolization left kidney prior to nephrectomy Bone marrow biopsies . Reported Medications Dexamethasone 4 Mg Tab 4 Mg PO TID 21 Days Pantoprazole (Pantoprazole Sodium) 40 Mg Tab 40 Mg PO DAILY Keppra (Levetiracetam) 500 Mg Tab 500 Mg PO Q12HR Hydrocodone-Acetaminophen 5-325 mg Tab 1 Tab PO Q4H PRN . Current Medications Medications (Trade) Dose Ordered Sig/Simran Route Start Time Stop Time Status Last Admin ([place] 5-325 Mg) 1 tab Q4H PRN PO 03/20/17 23:30 03/21/17 23:51 (Keppra) 500 mg Q12HR PO 03/20/17 23:30 03/22/17 09:59 Pantoprazole Sodium 40 mg 40 mg DAILY PO 03/21/17 09:00 03/22/17 09:59 (NS 1000 ml Inj) 1,000 ml @ 100 mls/hr Q10H IV 03/20/17 23:30 03/22/17 05:07 (Tylenol) 650 mg Q6H PRN PO 03/20/17 23:30 (Zofran Inj) 4 mg Q6H PRN IV 03/20/17 23:30 (Colace) 100 mg BID PO 03/21/17 09:00 03/21/17 08:00 (Senokot) 17.2 mg Q12H PRN PO 03/20/17 23:30 (Lovenox Inj) 40 mg Q24H SQ 03/21/17 00:00 03/21/17 23:52 Miscellaneous Information 1 Q361D XX 03/20/17 23:30 (Chlorhexidine 2% Cloth) 3 pack Taper DAILY@04 TOP 03/21/17 04:00 03/17/18 03:59 03/22/17 04:00 Chlorhexidine Gluconate 3 pack 3 pack UNSCH PRN TOP 03/20/17 23:30 Piperacillin Sod/ Tazobactam Sod 100 ml @ 200 mls/hr Q6H IV 03/21/17 03:00 03/22/17 09:59 Azithromycin 500 mg/Sodium Chloride 250 ml @ 250 mls/hr Q24H IV 03/21/17 22:00 03/21/17 20:29 Pharmacy Profile Note 0 ml @ 0 mls/hr UNSCH OTHER 03/20/17 23:30 (Vancomycin Inj/ NS 500 ml Inj) 517.5 ml @ 250 mls/hr Q12H IV 03/21/17 13:00 03/22/17 12:43 Miscellaneous Information SPECIFIC LAB TO BE DRAWN:VANCOMYCIN TROUGH DATE TO... ONCE ONCE .XX 03/23/17 00:45 03/23/17 00:46 (Decadron) 2 mg BID PO 03/22/17 09:00 03/22/17 10:00 (Mycostatin Liq) 5 ml QID SWISH-SWAL 03/22/17 09:00 03/22/17 12:42 (Norvasc) 5 mg DAILY PO 03/22/17 13:00 03/22/17 13:00 Family History father with CAD, [place], at age 48, mother with Alzheimer's disease at age 80 Substance Use Tobacco: No tobacco use Alcohol: Occasional alcohol less than one drink per month Prescription med abuse: None Illicits: None . Psychosocial History Patient is , lives at home with his . 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 Has 3 children a local son, a daughter in [place], a daughter in [place]. Spiritual/Cultural Factors devout Cheondoism. DOES NOT WANT blood transfusions. . Living Will: Copy in medical record Health Care Surrogate: Copy in medical record Health Care Surrogate(s): Names spouse Bonnie Kaminski Documented care wishes: Advanced directive document details Cheondoism and direct no transfusions of blood products, may be willing to accept some procedures involving own blood on a daily basis, and requests does not want a life prolonged if her to a reasonable degree of medical certainty situation is hopeless. Designates healthcare surrogate primary Bonnie Kaminski, alternative Ed Daryl Ethical and Legal Issues Patient is currently capacitated and able to make his own decisions. His is designated healthcare surrogate should he become incapacitated Physical Exam Vital Signs Date Time Temp Pulse Resp B/P Pulse Ox O2 Delivery O2 Flow Rate FiO2 03/22/17 11:02 98 Nasal Cannula 3.00 03/22/17 08:00 96.1 54 18 156/87 97 03/22/17 04:00 96.1 65 18 160/87 94 03/21/17 23:30 91 Nasal Cannula 3.50 03/21/17 23:07 54 03/21/17 22:20 96.2 57 17 147/79 91 03/21/17 20:53 93 Nasal Cannula 3.00 03/21/17 18:00 78 03/21/17 16:00 67 03/21/17 16:00 98.0 67 29 152/85 94 03/21/17 03/22/17 19:00 07:00 Intake Total 1821 ml 600 ml Output Total 775 ml Balance 1046 ml 600 ml Intake Oral 980 ml IV Total 841 ml 600 ml Output Urine Total 775 ml # Voids 2 # Bowel Movements 1 Exam CONSTITUTIONAL/GENERAL: alert, well nourished male TUBES/LINES/DRAINS: nasal cannula SKIN: No jaundice, rashes, or lesions. scabs BLE. Skin temperature warm EYES: Pupils equal and round and reactive. Extraocular motions intact. No scleral icterus. ENT: Hearing grossly normal. Nose without bleeding or purulent drainage. Throat without visible erythema, exudates, masses, or lesions. NECK: Trachea midline. Supple, nontender. CARDIOVASCULAR: Regular rate and rhythm no murmur. peripheral pulses symmetric. RESPIRATORY/CHEST: Symmetric, unlabored respirations on NC. Clear to auscultation, slight decrease air to base. Breath sounds equal bilaterally. GASTROINTESTINAL: Abdomen soft,round, non-tender, nondistended. No palpable masses. No guarding. Bowel sounds present. GENITOURINARY: Without palpable bladder distension. MUSCULOSKELETAL: Extremities without clubbing, cyanosis, or edema. NEUROLOGICAL: Awake and alert, oriented x3. reasonable insight. Motor and sensory grossly within normal limits. Moves all 4 extremities. PSYCHIATRIC: No obvious anxiety/depression. . Diagnostic Tests Laboratory Laboratory Tests Test 03/20/17 03/20/17 03/20/17 03/20/17 20:40 20:45 20:55 22:55 Blood Gas Puncture Site RT RADIAL Blood Gas Patient Temperature 98.6 Blood Gas HCO3 21 mmol/L (22-26) Blood Gas Base Excess -2.3 mmol/L (-2-2) Blood Gas Oxygen Saturation 91 % (90-100) Arterial Blood pH 7.50 (7.380-7.420) Arterial Blood Partial 27 mmHg (38-42) Pressure CO2 Arterial Blood Partial 63 mmHG Pressure O2 (61-120) Arterial Blood Oxygen Content 15.7 Vol % (12.0-20.0) Arterial Blood 2.1 % (0-4) Carboxyhemoglobin Arterial Blood Methemoglobin 0.6 % (0-2) Blood Gas Hemoglobin 12.3 G/DL (12.0-16.0) Oxygen Delivery Device NASAL CANNULA Blood Gas Liter Flow 4 L/M White Blood Count 6.8 TH/MM3 (4.0-11.0) Red Blood Count 4.51 MIL/MM3 (4.50-5.90) Hemoglobin 12.8 GM/DL (13.0-17.0) Hematocrit 38.0 % (39.0-51.0) Mean Corpuscular Volume 84.2 FL (80.0-100.0) Mean Corpuscular Hemoglobin 28.3 PG (27.0-34.0) Mean Corpuscular Hemoglobin 33.6 % Concent (32.0-36.0) Red Cell Distribution Width 21.3 % (11.6-17.2) Platelet Count 130 TH/MM3 (150-450) Mean Platelet Volume 6.6 FL (7.0-11.0) Neutrophils (%) (Auto) 82.8 % (16.0-70.0) Lymphocytes (%) (Auto) 14.5 % (9.0-44.0) Monocytes (%) (Auto) 1.4 % (0.0-8.0) Eosinophils (%) (Auto) 0.7 % (0.0-4.0) Basophils (%) (Auto) 0.6 % (0.0-2.0) Neutrophils # (Auto) 5.6 TH/MM3 (1.8-7.7) Lymphocytes # (Auto) 1.0 TH/MM3 (1.0-4.8) Monocytes # (Auto) 0.1 TH/MM3 (0-0.9) Eosinophils # (Auto) 0.1 TH/MM3 (0-0.4) Basophils # (Auto) 0.0 TH/MM3 (0-0.2) CBC Comment DIFF FINAL Differential Comment Sodium Level 127 MEQ/L (136-145) Potassium Level 5.3 MEQ/L (3.5-5.1) Chloride Level 94 MEQ/L (98-107) Carbon Dioxide Level 21.2 MEQ/L (21.0-32.0) Anion Gap 12 MEQ/L (5-15) Blood Urea Nitrogen 27 MG/DL (7-18) Creatinine 1.33 MG/DL (0.60-1.30) Estimat Glomerular Filtration 54 ML/MIN (>89) Rate Random Glucose 143 MG/DL (74-106) Calcium Level 7.9 MG/DL (8.5-10.1) Total Bilirubin 1.2 MG/DL (0.2-1.0) Aspartate Amino Transf 70 U/L (15-37) (AST/SGOT) Alanine Aminotransferase 26 U/L (12-78) (ALT/SGPT) Alkaline Phosphatase 94 U/L (45-117) Total Creatine Kinase 122 U/L (39-308) Creatine Kinase MB LESS THAN 0.5 NG/ML (0.5-3.6) Troponin I 0.03 NG/ML (0.02-0.05) B-Type Natriuretic Peptide 53 PG/ML (0-100) Total Protein 6.6 GM/DL (6.4-8.2) Albumin 2.5 GM/DL (3.4-5.0) Lactic Acid Level 1.6 mmol/L (0.4-2.0) Urine Color YELLOW (YELLW/STRAW) Urine Turbidity CLEAR (CLEAR) Urine pH 6.0 (5.0-8.5) Urine Specific [place] 1.025 (1.002-1.035) Urine Protein 30 mg/dL (NEG-TRACE) Urine Glucose (UA) NEG mg/dL (NEG) Urine Ketones NEG mg/dL (NEG) Urine Occult Blood MOD (NEG) Urine Nitrite NEG (NEG) Urine Bilirubin NEG (NEG) Urine Urobilinogen 2.0 MG/DL (LESS THAN 2.0) Urine Leukocyte Esterase NEG (NEG) Urine RBC 9 /hpf (0-3) Urine WBC 2 /hpf (0-5) Urine Renal Epithelial Cells <1 /hpf (NONE) Urine Bacteria RARE /hpf (NONE) Urine Mucus FEW /lpf (OCC) Urine Sperm RARE (NONE) Microscopic Urinalysis Comment CATH-CULTURE IND Test 03/21/17 03/21/17 03/21/17 03/22/17 01:00 04:14 18:31 05:54 Nasal Screen MRSA (PCR) MRSA NOT DETECTED (NOT DETECT) Sodium Level 136 MEQ/L 137 MEQ/L (136-145) (136-145) Potassium Level 3.7 MEQ/L 3.9 MEQ/L (3.5-5.1) (3.5-5.1) Chloride Level 102 MEQ/L 104 MEQ/L (98-107) (98-107) Carbon Dioxide Level 24.0 MEQ/L 24.6 MEQ/L (21.0-32.0) (21.0-32.0) Anion Gap 10 MEQ/L (5-15) 8 MEQ/L (5-15) Blood Urea Nitrogen 24 MG/DL (7-18) 21 MG/DL (7-18) Creatinine 1.04 MG/DL 0.97 MG/DL (0.60-1.30) (0.60-1.30) Estimat Glomerular Filtration 72 ML/MIN (>89) 78 ML/MIN (>89) Rate Random Glucose 201 MG/DL 180 MG/DL (74-106) (74-106) Calcium Level 7.4 MG/DL 8.2 MG/DL (8.5-10.1) (8.5-10.1) Protein Corrected Calcium 8.4 MG/DL (8.5-10.1) Phosphorus Level 4.0 MG/DL (2.5-4.9) Magnesium Level 2.1 MG/DL 2.1 MG/DL (1.5-2.5) (1.5-2.5) Total Protein 5.3 GM/DL 5.3 GM/DL (6.4-8.2) (6.4-8.2) Lab Scanned Report Lab Reports - Other [id number] White Blood Count 4.3 TH/MM3 (4.0-11.0) Red Blood Count 3.60 MIL/MM3 (4.50-5.90) Hemoglobin 10.1 GM/DL (13.0-17.0) Hematocrit 29.9 % (39.0-51.0) Mean Corpuscular Volume 83.2 FL (80.0-100.0) Mean Corpuscular Hemoglobin 28.2 PG (27.0-34.0) Mean Corpuscular Hemoglobin 33.9 % Concent (32.0-36.0) Red Cell Distribution Width 20.9 % (11.6-17.2) Platelet Count 117 TH/MM3 (150-450) Mean Platelet Volume 6.2 FL (7.0-11.0) Neutrophils (%) (Auto) 86.8 % (16.0-70.0) Lymphocytes (%) (Auto) 11.4 % (9.0-44.0) Monocytes (%) (Auto) 1.7 % (0.0-8.0) Eosinophils (%) (Auto) 0.1 % (0.0-4.0) Basophils (%) (Auto) 0.0 % (0.0-2.0) Neutrophils # (Auto) 3.7 TH/MM3 (1.8-7.7) Lymphocytes # (Auto) 0.5 TH/MM3 (1.0-4.8) Monocytes # (Auto) 0.1 TH/MM3 (0-0.9) Eosinophils # (Auto) 0.0 TH/MM3 (0-0.4) Basophils # (Auto) 0.0 TH/MM3 (0-0.2) CBC Comment AUTO DIFF Differential Total Cells 100 Counted Neutrophils % (Manual) 65 % (16-70) Band Neutrophils % 16 % (0-6) Lymphocytes % 9 % (9-44) Monocytes % 6 % (0-8) Neutrophils # (Manual) 3.7 TH/MM3 (1.8-7.7) Metamyelocytes 2 % (0-1) Myelocytes 2 % (0-0) Differential Comment FINAL DIFF MANUAL Platelet Estimate LOW (NORMAL) Platelet Morphology Comment NORMAL (NORMAL) Ovalocytes 1+ (NORMAL) Total Bilirubin 0.7 MG/DL (0.2-1.0) Aspartate Amino Transf 29 U/L (15-37) (AST/SGOT) Alanine Aminotransferase 19 U/L (12-78) (ALT/SGPT) Alkaline Phosphatase 72 U/L (45-117) Albumin 2.2 GM/DL (3.4-5.0) Result Diagram: 03/22/17 0554 03/22/17 0554 Microbiology Microbiology Date/Time Procedure Status Source Growth 03/20/17 20:45 Aerobic Blood Culture - Preliminary Resulted Blood Peripheral NO GROWTH IN 2 DAYS 03/20/17 20:45 Anaerobic Blood Culture - Preliminary Resulted Blood Peripheral NO GROWTH IN 2 DAYS 03/20/17 20:55 Aerobic Blood Culture - Preliminary Resulted Blood Peripheral NO GROWTH IN 2 DAYS 03/20/17 20:55 Anaerobic Blood Culture - Preliminary Resulted Blood Peripheral NO GROWTH IN 2 DAYS 03/20/17 22:55 Urine Culture - Final Complete Urine Catheterized Urine NO GROWTH IN 48 HOURS. Imaging Last Impressions Chest X-Ray 03/22/17 0600 Signed Impressions: Service Date/Time: Wednesday, March 22, 2017 05:10 - CONCLUSION: 1. Bibasilar atelectasis versus pneumonia. Norman Law MD Ribs X-Ray 03/20/172033 Signed Impressions: Service Date/Time: Monday, March 20, 2017 21:33 - CONCLUSION: No definite displaced rib fractures and slight worsening parenchymal process in the lungs. Nallely To MD Patient/Family Conference Present at Family Conference: ,pt Family Conference Time (mins): 35 Family Conference Location: Bedside Issues Discussed: met w pt, at bedside. Discussion included: * Palliative care role, purpose, approach * Additional medical, psychosocial, and spiritual history * Patients general health, functional status, leading up to the current hospitalization * Patient/family understanding of the current medical problems * Patient/family understanding of prognosis, review limited life expectancy * Patients goals of care as best understood from advance directives and/or conversations and/or values * Current medical treatment options and benefits/burdens of those options * Likely scenarios comparing ongoing aggressive care with a transition to comfort measures only/brief review of hospice role/philosophy, pt limited life expectancy * Questions answered to the best of my ability * Palliative care contact information provided Pt & appear to have reasonable understanding of conditions prognosis. He wishes to continue to pursue aggressive tx, including full code for his disease process. He is still fairly active and has what he deems a reasonable quality of life. He feels he will know if and when it is time for hospice. He believes that though he has been told he has mos to live, it could still be years. Assessment and Plan Disease Oriented Problem List: (1) Metastatic renal cell carcinoma (2) Brain metastasis (3) Pneumonia (4) Coronary artery disease (5) Spinal stenosis (6) Lower extremity weakness (7) Anemia (8) Hypertension Symptom Scale: (1) Fatigue (2) Dyspnea Pertinent Non-Medical Issues Psychosocial:Patient is , lives at home with his . 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 Has 3 children a local son, a daughter in [place], a daughter in [place]. Spiritual:devout Cheondoism. DOES NOT WANT blood transfusions. Legal:Advanced directive document details Cheondoism and direct no transfusions of blood products, may be willing to accept some procedures involving own blood on a daily basis, and requests does not want a life prolonged if her to a reasonable degree of medical certainty situation is hopeless. Designates healthcare surrogate primary berlin Miranda Ed Ethical issues impacting care: Important Contacts Bonnie Kaminski [phone] /[phone] Elder Kaminski [phone] . Prognosis This patient was admitted for pneumonia, weakness. Weakness is felt to be secondary to high-dose steroid use, steroids to be tapered. Respiratory status has improved, plan to DC on antibiotic oral coverage. Oncology indicates that overall prognosis will depend on response to treatments thus far, had continued to have treatments even through mid February. Oncology is hopeful that patient will not have new areas of disease progression in the brain. However patient does still have widely metastatic renal cell carcinoma, with disease progression since original diagnoses and has undergone radiation therapy, which may extend his life with this disease process. During prior admission, oncology notes" overall prognosis is poor and a fair estimate of a median survival is 3- 4 months given the multiple brain mets" .Appropriate for hospice if goals were compatible. . Code Status: Full Code Plan * Legal decision maker: Patient is able to make his own decisions. He does have advanced directive naming Bonnie Kaminski as healthcare surrogate if he is incapacitated. * Goals: pt and appear to have a good understanding of conditions, overall prognosis. He would like to cont to try to manage his sx as they occur, and for now goals are aggressive, he would cont to seek hospitalization if complications develop. Understands hospice option however is not interested in hospice at this time. * CODE STATUS:full code * SYMPTOMS: --Dyspnea-status post fall few days prior to admission with worsening rib pain and shortness of breath. Required BiPAP for a short time though that has been weaned and is currently tolerating nasal cannula --Pain-status post fall struck left ribs-- CXR negative for fx/ has prn norco 5 available, used x3 yesterday, none required today -- weakness- ongoing, likely deconditioning * Palliative care will continue to follow during hospital course as condition evolves, to assist patient/decision-maker with understanding of medical conditions, weighing benefits/burdens of treatment options, for clarification of goals of treatment. Additionally will assist with any symptoms of palliative concern . Thank you for the opportunity to participate in the care of Mr. Kaminski. Attestation To help prompt me to consider important information that might be impacting today's encounter and assessment, information from prior notes written by myself or my colleagues may have been "brought forward" into today's note. My signature on this note, however, is an attestation that I personally performed the exam, history, and/or decision-making noted today, and, unless otherwise indicated, the interactions with patient, family, and staff as well as the review of records all occurred today. I also attest that the listed assessment and stated plan reflect my best clinical judgment today based on the combination of historical information, prior notes, and today's exam/ interactions. When time spent is documented, it refers only to time spent today by the signer, or if indicated, combined time spent today by collaborating physician/nurse practitioner. Brii Balbuena March 22, 2017 15:13 combination of historical information, prior notes, and today's exam/ interactions. When time spent is documented, it refers only to time spent today by the signer, or if indicated, combined time spent today by collaborating physician/nurse practitioner. Brii Balbuena March 22, 2017 15:13
[2017-03-22] MEDS: ACETAMINOPHEN/HYDROcodone 325 MG/5 MG TAB PO PRN (19:55)
[2017-03-22] MEDS: AZITHROMYCIN INJ 500 MG in SODIUM CHLOR 0.9% 250 ML INJ 250 ML IV SCH (23:33)
[2017-03-22] MEDS: ENOXAPARIN SODIUM 40 MG/0.4 ML SYRINGE SQ SCH (23:33)
[2017-03-23] VITALS (11 sets, daily range): BP systolic 141–181; BP diastolic 73–94; PULSE 56–78; RESP 17–20; TEMP 96–97; O2SAT 94–98
[2017-03-23] MEDS ORDERED: LORazepam 0.5 MG TAB PO ONE (00:30)
[2017-03-23] MEDS ORDERED: PHARMACY ORDERED LAB ONE (00:45)
[2017-03-23] MEDS: ACETAMINOPHEN/HYDROcodone 325 MG/5 MG TAB PO PRN ×5 (00:53→23:01)
[2017-03-23] MEDS: VANCOMYCIN INJ 1,750 MG in SODIUM CHLORID 0.9% 500 ML INJ 500 ML IV SCH ×2 (01:36→13:18)
[2017-03-23] MEDS: SODIUM CHLOR 0.9% 1000 ML INJ 1,000 ML IV SCH ×3 (01:39→20:22)
[2017-03-23] MEDS: CHLORHEXIDINE GLUCONATE 2 % 1 PACK (2 CLOTHS) TOP SCH (04:00)
[2017-03-23] MEDS: PIPERACIL-TAZO 4.5 GM PREMIX 100 ML IV SCH ×4 (04:49→20:15)
[2017-03-23 06:57] LABS: AUTOMATED NEUTROPHIL # 2.7 TH/MM3 (1.8-7.7); BASOPHIL % 0.2 % (0.0-2.0); EOSINOPHIL % 1.2 % (0.0-4.0); HEMATOCRIT 28.7 % (39.0-51.0); LYMPH % 10.5 % (9.0-44.0); LYMPHOCYTE # 0.3 TH/MM3 (1.0-4.8); MEAN CELL VOLUME 83.4 FL (80.0-100.0); MEAN CORPUSCULAR HEMOGLOBIN 28.8 PG (27.0-34.0); MEAN CORPUSCULAR HGB CONC 34.6 % (32.0-36.0); MONO % 2.6 % (0.0-8.0); NEUT % 85.5 % (16.0-70.0); PLATELET COUNT 136 TH/MM3 (150-450); RED BLOOD COUNT 3.44 MIL/MM3 (4.50-5.90); RED CELL DISTRIBUTION WIDTH 20.4 % (11.6-17.2); WHITE BLOOD COUNT 3.1 TH/MM3 (4.0-11.0)
[2017-03-23 06:59] LABS: HEMO FLAGS AUTO DIFF
[2017-03-23 07:54] LABS: BANDS 11 % (0-6); CORRECTED NUCLEATED RBC 2 /100 WBC (0-0); EOSINOPHILS 1 % (0-4); NEUTROPHIL # MANUAL DIFF 2.4 TH/MM3 (1.8-7.7); POLYS (SEG NEUTROPHILS) 68 % (16-70); WBC DIFF SAMPLE 100
[2017-03-23 07:56] LABS: PLATELET ESTIMATE SMEAR LOW (NORMAL); PLATELET MORPHOLOGY NORMAL (NORMAL); SCAN/DIFF FINAL DIFF MANUAL
--- NOTE | 2017-03-23 08:00 | PD.ONC.PN ---
Subjective Subjective Remarks Mr. Kaminski reports not feeling much different than he did yesterday. He needs assistance getting up out of bed and to the restroom. He remains on oxygen at about 2-1/2 L/m by nasal cannula. He denies fevers, chills, pain, neurologic deficits. He tells me does feel a little unsteady on his feet. Objective Data Date Time Temp Pulse Resp B/P Pulse Ox O2 Delivery O2 Flow Rate FiO2 03/23/17 07:15 Nasal Cannula 3.50 03/23/17 04:00 96.1 56 17 159/91 96 03/23/17 00:00 96.3 60 17 158/84 96 03/22/17 21:05 2.00 03/22/17 20:00 96 Nasal Cannula 3.50 03/22/17 20:00 96.7 83 18 149/82 96 03/22/17 20:00 73 03/22/17 18:31 Nasal Cannula 3.50 03/22/17 18:31 57 03/22/17 16:00 97.2 88 18 145/82 98 03/22/17 12:00 96.3 89 18 139/78 98 03/22/17 11:02 98 Nasal Cannula 3.00 03/22/17 08:00 96.1 54 18 156/87 97 Result Diagram: 03/23/17 0551 03/22/17 0554 Laboratory Results Laboratory Tests Test 03/23/17 03/23/17 00:55 05:51 Vancomycin Level Trough 19.5 MCG/ML White Blood Count 3.1 TH/MM3 Red Blood Count 3.44 MIL/MM3 Hemoglobin 9.9 GM/DL Hematocrit 28.7 % Mean Corpuscular Volume 83.4 FL Mean Corpuscular Hemoglobin 28.8 PG Mean Corpuscular Hemoglobin 34.6 % Concent Red Cell Distribution Width 20.4 % Platelet Count 136 TH/MM3 Mean Platelet Volume 6.1 FL Neutrophils (%) (Auto) 85.5 % Lymphocytes (%) (Auto) 10.5 % Monocytes (%) (Auto) 2.6 % Eosinophils (%) (Auto) 1.2 % Basophils (%) (Auto) 0.2 % Neutrophils # (Auto) 2.7 TH/MM3 Lymphocytes # (Auto) 0.3 TH/MM3 Monocytes # (Auto) 0.1 TH/MM3 Eosinophils # (Auto) 0.0 TH/MM3 Basophils # (Auto) 0.0 TH/MM3 CBC Comment AUTO DIFF Culture Results Microbiology Date/Time Procedure Status Source Growth 03/20/17 20:45 Aerobic Blood Culture - Preliminary Resulted Blood Peripheral NO GROWTH IN 2 DAYS 03/20/17 20:45 Anaerobic Blood Culture - Preliminary Resulted Blood Peripheral NO GROWTH IN 2 DAYS 03/20/17 20:55 Aerobic Blood Culture - Preliminary Resulted Blood Peripheral NO GROWTH IN 2 DAYS 03/20/17 20:55 Anaerobic Blood Culture - Preliminary Resulted Blood Peripheral NO GROWTH IN 2 DAYS 03/20/17 22:55 Urine Culture - Final Complete Urine Catheterized Urine NO GROWTH IN 48 HOURS. Administered Medications Medications (Trade) Dose Ordered Sig/Simran Route PRN Reason Start Time Stop Time Status Last Admin Dose Admin Acetaminophen/ Hydrocodone Bitart ([place] 5-325 Mg) 1 tab Q4H PRN PO PAIN 03/20/17 23:30 03/23/17 00:53 Levetriacetam (Keppra) 500 mg Q12HR PO 03/20/17 23:30 03/22/17 19:48 Pantoprazole Sodium 40 mg 40 mg DAILY PO 03/21/17 09:00 03/22/17 09:59 Sodium Chloride (NS 1000 ml Inj) 1,000 ml @ 100 mls/hr Q10H IV 03/20/17 23:30 03/23/17 01:39 Docusate Sodium (Colace) 100 mg BID PO 03/21/17 09:00 03/21/17 08:00 Enoxaparin Sodium (Lovenox Inj) 40 mg Q24H SQ 03/21/17 00:00 03/22/17 23:33 Chlorhexidine Gluconate 3 pack 3 pack Taper DAILY@04 TOP 03/21/17 04:00 03/17/18 03:59 03/23/17 04:00 Piperacillin Sod/ Tazobactam Sod 100 ml @ 200 mls/hr Q6H IV 03/21/17 03:00 03/23/17 04:49 Azithromycin 500 mg/Sodium Chloride 250 ml @ 250 mls/hr Q24H IV 03/21/17 22:00 03/22/17 23:33 Vancomycin HCl/ Sodium Chloride (Vancomycin Inj/ NS 500 ml Inj) 517.5 ml @ 250 mls/hr Q12H IV 03/21/17 13:00 03/23/17 01:36 Dexamethasone (Decadron) 2 mg BID PO 03/22/17 09:00 03/22/17 19:48 Nystatin (Mycostatin Liq) 5 ml QID SWISH-SWAL 03/22/17 09:00 03/22/17 23:33 Amlodipine Besylate (Norvasc) 5 mg DAILY PO 03/22/17 13:00 03/22/17 13:00 Objective Remarks GENERAL APPEARANCE: Mr. Kaminski is a middle-aged/elderly male. He has a cushingoid appearance and has gained a significant amount of weight since I last saw him. He is in no acute distress. His is at bedside. HEENT: Head is atraumatic and normocephalic. Conjunctivae are not pale. Sclerae are anicteric. EOMI. PERRLA. No pharyngeal erythema. NECK: No palpable cervical or supraclavicular lymphadenopathy. PULMONARY: Good air movement bilaterally over the upper and middle lung zones. Decreased bibasilar breath sounds. Prolonged expiratory phase. CARDIOVASCULAR: Regular rate and rhythm, S1, S2. No obvious murmurs, rubs or gallops. ABDOMEN: Obese belly, soft, tympanic to percussion, no organ enlargement. Fully healed left-sided subcostal surgical incision scar is noted. EXTREMITIES: No pretibial edema or calf tenderness. CORPORATE DEVELOPMENT ASSOCIATE: No focal sensory or motor deficits. Assessment/Plan Assessment Mr. 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 He is status post stereotactic radiosurgery to the multiple brain lesions. The radiation to his brain lesions was completed in mid February 2017. Restaging imaging scans are pending at this time. It is, however, notable that his visual field deficits and other sensory neural deficits have completely resolved since he completed radiation. He remains on corticosteroid therapy for management of vasogenic edema as well as seizure prophylaxis with Keppra. Additionally, his largest pulmonary lesion which was a right-sided anterior mediastinal/right lung mass was treated with external beam radiation with treatment completed within the last week or two. The patient presents to the hospital with complaints of progressive fatigue, weakness, diarrhea, low grade fever and chills. Plan 1. Continue empiric antibiotics. I would recommend transitioning to oral azithromycin and oral levofloxacin at the time of discharge. 2. Physical therapy evaluation. Ordered. 3. Oxygen walk test to assess home oxygen needs ordered. 4. Incentive spirometer has been ordered as well. 5. Restaging MRI of the brain has been scheduled for 04/04/2017 to assess response to stereotactic radiosurgery to the brain. 6. Dexamethasone taper down to 2 mg twice daily, additional instructions have been handwritten for the patient's so she may follow those instructions after discharge. Sharath Cardsoo MD March 23, 2017 08:00
[2017-03-23] MEDS: NYSTATIN SUSP 500,000 U/5 ML CUP SWISH-SWAL SCH ×4 (08:01→20:15)
[2017-03-23] MEDS: PANTOPRAZOLE SOD 40 MG DELAYED RELEASE TAB PO SCH (08:01)
[2017-03-23] MEDS: amLODIPine BESYLATE 5 MG TAB PO SCH (08:01)
[2017-03-23] MEDS: DEXAMETHASONE 4 MG TAB PO SCH ×2 (08:01→20:14)
[2017-03-23] MEDS: levETIRAcetam 500 MG TAB PO SCH ×2 (08:01→20:14)
[2017-03-23] MEDS: DOCUSATE SODIUM 100 MG CAP PO SCH ×2 (08:07→20:17)
--- NOTE | 2017-03-23 14:30 | HHI.PR ---
Subjective Remarks Resting in bed, at the bedside she told me patient was slightly lethargic his morning, He had half milligram of Ativan tonight He still on nasal cannula, oncologist will see the patient in his office He is afebrile today, blood pressure still uncontrolled will increase amlodipine , will wean O2 and check walking test in a.m. Objective Vitals Vital Signs Date Time Temp Pulse Resp B/P Pulse Ox O2 Delivery O2 Flow Rate FiO2 03/23/17 10:20 97 Nasal Cannula 3.00 03/23/17 08:00 78 03/23/17 07:55 56 170/93 03/23/17 07:50 96.6 60 20 181/94 98 03/23/17 07:15 Nasal Cannula 3.50 03/23/17 04:00 96.1 56 17 159/91 96 03/23/17 00:00 96.3 60 17 158/84 96 03/22/17 21:05 2.00 03/22/17 20:00 96 Nasal Cannula 3.50 03/22/17 20:00 96.7 83 18 149/82 96 03/22/17 20:00 73 03/22/17 18:31 Nasal Cannula 3.50 03/22/17 18:31 57 03/22/17 16:00 97.2 88 18 145/82 98 I/O 03/22/17 03/22/17 03/22/17 03/23/17 03/23/17 03/23/17 07:00 15:00 23:00 07:00 15:00 23:00 Intake Total 600 ml 2320 ml 800 ml 812 ml Balance 600 ml 2320 ml 800 ml 812 ml IV Total 600 ml 2320 ml 800 ml 812 ml # Voids 1 1 2 Result Diagram: 03/23/17 0551 03/22/17 0554 Objective Remarks GENERAL: This is a frail 66 years old patient in no apparent distress. CARDIOVASCULAR: Regular rate and rhythm without murmurs, gallops, or rubs. RESPIRATORY: Diminished breath sounds bibasilar GASTROINTESTINAL: Abdomen soft, non-tender, nondistended. Normal active bowel sounds MUSCULOSKELETAL: Extremities without clubbing, cyanosis, or edema. NEURO: Awake alert answer simple questions A/P Assessment and Plan 03/22: We'll add Norvasc to optimize blood pressure, CBC BMP in a.m., reviewed note from oncologist he will follow patient as an outpatient 03/23: Increase Norvasc again today, reviewed CBC BMP, wean O2, walking test in a.m. hopefully discharge 1. Hypoxemic Respiratory Failure. 2. Widely metastatic renal cell carcinoma. 3. Severe dehydration. 4. Frequent falls. 5. Diffuse bilateral pulmonary interstitial infiltrates - possible lymphangitic spread? 6. Fever. Sepsis. Plan: 1. Hydration. 2. Clarification of code status, care goals. 3. Broad antibiotic coverage for pneumonia. 4. Blood cultures. 5. On nasal cannula 6. Avoid diuresis 7. Not requiring pressors. Oncologist and palliative care consulted Afshin Kirkland MD March 23, 2017 14:30
[2017-03-23] MEDS: ENOXAPARIN SODIUM 40 MG/0.4 ML SYRINGE SQ SCH (23:01)
[2017-03-23] MEDS: AZITHROMYCIN INJ 500 MG in SODIUM CHLOR 0.9% 250 ML INJ 250 ML IV SCH (23:02)
[2017-03-24] VITALS (8 sets, daily range): BP systolic 150–179; BP diastolic 74–91; PULSE 52–66; RESP 16–20; TEMP 96–98.4; O2SAT 93–96
[2017-03-24] MEDS: VANCOMYCIN INJ 1,750 MG in SODIUM CHLORID 0.9% 500 ML INJ 500 ML IV SCH ×2 (01:51→12:49)
[2017-03-24] MEDS: PIPERACIL-TAZO 4.5 GM PREMIX 100 ML IV SCH ×4 (01:52→19:35)
[2017-03-24 03:01] LABS: AUTOMATED NEUTROPHIL # 2.4 TH/MM3 (1.8-7.7); BASOPHIL % 0.2 % (0.0-2.0); EOSINOPHIL % 0.9 % (0.0-4.0); HEMATOCRIT 28.1 % (39.0-51.0); LYMPH % 11.8 % (9.0-44.0); LYMPHOCYTE # 0.3 TH/MM3 (1.0-4.8); MEAN CELL VOLUME 83.3 FL (80.0-100.0); MEAN CORPUSCULAR HEMOGLOBIN 28.2 PG (27.0-34.0); MEAN CORPUSCULAR HGB CONC 33.9 % (32.0-36.0); MONO % 3.2 % (0.0-8.0); NEUT % 83.9 % (16.0-70.0); PLATELET COUNT 151 TH/MM3 (150-450); RED BLOOD COUNT 3.37 MIL/MM3 (4.50-5.90); RED CELL DISTRIBUTION WIDTH 20.8 % (11.6-17.2); WHITE BLOOD COUNT 2.9 TH/MM3 (4.0-11.0)
[2017-03-24] MEDS: CHLORHEXIDINE GLUCONATE 2 % 1 PACK (2 CLOTHS) TOP SCH (03:07)
[2017-03-24 03:13] LABS: HEMO FLAGS AUTO DIFF
[2017-03-24 03:15] LABS: BICARBONATE 27.9 MEQ/L (21.0-32.0); POTASSIUM 3.5 MEQ/L (3.5-5.1)
[2017-03-24 03:48] LABS: BANDS 12 % (0-6); EOSINOPHILS 2 % (0-4); MYELOCYTES 5 % (0-0); NEUTROPHIL # MANUAL DIFF 2.4 TH/MM3 (1.8-7.7); POLYS (SEG NEUTROPHILS) 67 % (16-70); SCAN/DIFF FINAL DIFF MANUAL; WBC DIFF SAMPLE 100
[2017-03-24 03:52] LABS: OVALOCYTES 1+ (NORMAL); PLATELET ESTIMATE SMEAR NORMAL (NORMAL); PLATELET MORPHOLOGY NORMAL (NORMAL)
[2017-03-24] MEDS: ACETAMINOPHEN/HYDROcodone 325 MG/5 MG TAB PO PRN ×2 (04:25→10:33)
[2017-03-24] MEDS: SODIUM CHLOR 0.9% 1000 ML INJ 1,000 ML IV SCH ×2 (07:30→17:30)
[2017-03-24] MEDS: NYSTATIN SUSP 500,000 U/5 ML CUP SWISH-SWAL SCH ×4 (08:03→19:36)
[2017-03-24] MEDS: PANTOPRAZOLE SOD 40 MG DELAYED RELEASE TAB PO SCH (08:03)
[2017-03-24] MEDS: DEXAMETHASONE 4 MG TAB PO SCH ×2 (08:04→19:34)
[2017-03-24] MEDS: levETIRAcetam 500 MG TAB PO SCH ×2 (08:04→19:33)
[2017-03-24] MEDS: DOCUSATE SODIUM 100 MG CAP PO SCH ×2 (08:05→19:35)
--- NOTE | 2017-03-24 12:51 | HHI.PR ---
Subjective Remarks Follow up on acute hypoxic respiratory failure with severe dehydration, widely metastatic renal cell carcinoma and frequent fall and bilateral home interstitial infiltrate possibly pneumonia, patient followed by oncology he is status post ICU stay Patient failed walking test home O2 today Still feeling tired, physical exam still showing crackles on the bases, his WBC continued to drop to 2.9 today Objective Vitals Vital Signs Date Time Temp Pulse Resp B/P Pulse Ox O2 Delivery O2 Flow Rate FiO2 03/24/17 11:18 2.00 03/24/17 11:07 94 Nasal Cannula 2.00 03/24/17 09:44 Nasal Cannula 2.00 80 Humidified 03/24/17 07:50 96.0 52 20 154/83 96 03/24/17 02:00 96.4 56 18 156/74 93 03/24/17 00:00 98.4 58 17 150/81 95 03/23/17 20:40 Nasal Cannula 2.00 Humidified 03/23/17 20:40 59 03/23/17 20:00 96.9 68 17 141/80 96 03/23/17 18:01 97 Nasal Cannula 2.00 03/23/17 15:50 97.0 66 20 167/87 95 I/O 03/23/17 03/23/17 03/23/17 03/24/17 03/24/17 03/24/17 07:00 15:00 23:00 07:00 15:00 23:00 Intake Total 800 ml 1412 ml Balance 800 ml 1412 ml Intake Oral 600 ml IV Total 800 ml 812 ml # Voids 2 4 1 1 # Bowel Movements 0 Result Diagram: 03/24/17 0229 03/24/17 0229 Objective Remarks GENERAL: This is a frail 66 years old patient in no apparent distress. CARDIOVASCULAR: Regular rate and rhythm without murmurs, gallops, or rubs. RESPIRATORY: Diminished breath sounds bibasilar with crackles more on the left side GASTROINTESTINAL: Abdomen soft, non-tender, nondistended. Normal active bowel sounds MUSCULOSKELETAL: Extremities without clubbing, cyanosis, or edema. NEURO: Awake alert answer simple questions A/P Assessment and Plan 2: We'll add Norvasc to optimize blood pressure, CBC BMP in a.m., reviewed note from oncologist he will follow patient as an outpatient 3: Increase Norvasc again today, reviewed CBC BMP, wean O2, walking test in a.m. hopefully discharge 1. Hypoxemic Respiratory Failure. 2. Widely metastatic renal cell carcinoma. 3. Severe dehydration. 4. Frequent falls. 5. Diffuse bilateral pulmonary interstitial infiltrates - possible lymphangitic spread? 6. Fever. Sepsis. 7. Progressive neutropenia 8. Hypertension Plan: Continue iv antibiotic for pneumonia, will notify hematology about acute progressive neutropenia palliative care consulted Continue O2, DuoNeb, hydration Encourage oral intake and ambulation Plan was to discharge patient however due to worsening neutropenia I would keep him for another day on iv antibiotic, call placed to discuss with hematology regarding neutropenia Continue antihypertensive medication, recently added [facility] Discharge Planning When WBC improved or if cleared for discharge despite neutropenia by hematology Afshin Kirkland MD March 24, 2017 12:51
[2017-03-24] MEDS ORDERED: oxyCODONE/ACETAMINOPHEN 5 MG/325 MG TAB PO PRN (13:30)
[2017-03-24] MEDS ORDERED: BEDSIDE COMMODE1 MI1 (13:34)
[2017-03-24] MEDS ORDERED: ENALAPRILAT 1.25 MG/ML VIAL IV PUSH PRN (17:30)
[2017-03-24] MEDS: oxyCODONE/ACETAMINOPHEN 10 MG/325 MG TAB PO PRN (19:33)
[2017-03-24] MEDS: AZITHROMYCIN INJ 500 MG in SODIUM CHLOR 0.9% 250 ML INJ 250 ML IV SCH (22:44)
[2017-03-24] MEDS: ENOXAPARIN SODIUM 40 MG/0.4 ML SYRINGE SQ SCH (22:55)
[2017-03-25] VITALS (8 sets, daily range): BP systolic 133–176; BP diastolic 82–98; PULSE 50–80; RESP 15–18; TEMP 96.4–97.2; O2SAT 92–98
[2017-03-25] MEDS: oxyCODONE/ACETAMINOPHEN 10 MG/325 MG TAB PO PRN ×2 (00:43→06:45)
[2017-03-25] MEDS ORDERED: PHARMACY ORDERED LAB ONE (00:45)
[2017-03-25] MEDS: VANCOMYCIN INJ 1,750 MG in SODIUM CHLORID 0.9% 500 ML INJ 500 ML IV SCH (00:54)
[2017-03-25] MEDS: PIPERACIL-TAZO 4.5 GM PREMIX 100 ML IV SCH ×3 (03:28→14:58)
[2017-03-25] MEDS: CHLORHEXIDINE GLUCONATE 2 % 1 PACK (2 CLOTHS) TOP SCH (04:00)
[2017-03-25] MEDS: SODIUM CHLOR 0.9% 1000 ML INJ 1,000 ML IV SCH (05:33)
[2017-03-25] MEDS: DEXAMETHASONE 4 MG TAB PO SCH (08:53)
[2017-03-25] MEDS: levETIRAcetam 500 MG TAB PO SCH (08:53)
[2017-03-25] MEDS: DOCUSATE SODIUM 100 MG CAP PO SCH (08:53)
[2017-03-25] MEDS: NYSTATIN SUSP 500,000 U/5 ML CUP SWISH-SWAL SCH ×2 (08:55→13:27)
[2017-03-25] MEDS: PANTOPRAZOLE SOD 40 MG DELAYED RELEASE TAB PO SCH (09:00)
--- NOTE | 2017-03-25 10:53 | HHI.PR ---
Subjective Remarks Says he feels sob while walking to the bath. No chest pain, lightheadedness, n/v /d/c. Has LE edema, will DC IVF as he is taking PO. No fevers or chills overnight. No chest pain. No cough. Says he is urinating more than before. No suprapubic pain, pain with urination. Objective Vitals Vital Signs Date Time Temp Pulse Resp B/P Pulse Ox O2 Delivery O2 Flow Rate FiO2 03/25/17 09:36 94 21 03/25/17 09:06 Nasal Cannula 1.00 03/25/17 08:00 96.4 52 16 135/85 93 03/25/17 07:46 20 03/25/17 06:34 161/82 03/25/17 04:00 97.2 50 15 176/98 92 03/25/17 00:44 169/91 03/25/17 00:00 97.1 67 17 169/91 93 03/24/17 21:15 Nasal Cannula 1.00 03/24/17 21:00 94 Nasal Cannula 1.00 80 03/24/17 21:00 59 03/24/17 20:00 97.3 58 16 163/76 94 03/24/17 16:25 97.6 65 18 179/91 94 03/24/17 11:50 97.9 66 20 176/87 96 03/24/17 11:18 2.00 03/24/17 11:07 94 Nasal Cannula 2.00 I/O 03/24/17 03/24/17 03/24/17 03/25/17 03/25/17 03/25/17 07:00 15:00 23:00 07:00 15:00 23:00 Intake Total 720 ml 2351 ml 1757 ml Balance 720 ml 2351 ml 1757 ml Intake Oral 720 ml 240 ml 960 ml IV Total 2111 ml 797 ml # Voids 1 7 1 2 # Bowel Movements 1 Result Diagram: 03/24/1722803/24/17228 Imaging Last Impressions Chest X-Ray 03/22/17 0600 Signed Impressions: Service Date/Time: Wednesday, March 22, 2017 05:10 - CONCLUSION: 1. Bibasilar atelectasis versus pneumonia. Norman Law MD Ribs X-Ray 03/20/172033 Signed Impressions: Service Date/Time: Monday, March 20, 2017 21:33 - CONCLUSION: No definite displaced rib fractures and slight worsening parenchymal process in the lungs. Nallely To MD Objective Remarks GENERAL: Pleasant 66 yo male, appears in nad. SKIN: Warm and dry. HEAD: Atraumatic. Normocephalic. EYES: Pupils equal and round. No scleral icterus. No injection or drainage. ENT: No nasal bleeding or discharge. Mucous membranes pink and moist. NECK: Trachea midline. No JVD. CARDIOVASCULAR: Regular rate and rhythm. RESPIRATORY: No accessory muscle use. Clear to auscultation. Breath sounds equal bilaterally. GASTROINTESTINAL: Abdomen soft, non-tender, nondistended. Hepatic and splenic margins not palpable. MUSCULOSKELETAL: Extremities without clubbing, cyanosis, or edema. No obvious deformities. NEUROLOGICAL: Awake and alert. No obvious cranial nerve deficits. Motor grossly within normal limits. Five out of 5 muscle strength in the arms and legs. Normal speech. PSYCHIATRIC: Appropriate mood and affect; insight and judgment normal. A/P Assessment and Plan 1. Hypoxemic Respiratory Failure. 2. Widely metastatic renal cell carcinoma. 3. Severe dehydration. 4. Frequent falls. 5. Diffuse bilateral pulmonary interstitial infiltrates - possible lymphangitic spread? 6. Fever. Sepsis. 7. Progressive neutropenia 8. Hypertension Continue iv antibiotic for pneumonia, will notify hematology about acute progressive neutropenia palliative care consulted Continue O2, DuoNeb, hydration Encourage oral intake and ambulation Plan was to discharge patient however due to worsening neutropenia I would keep him for another day on iv antibiotic, call placed to discuss with hematology regarding neutropenia Continue antihypertensive medication, recently added Norvasc /: We'll add Norvasc to optimize blood pressure, CBC BMP in a.m., reviewed note from oncologist he will follow patient as an outpatient 03/23: Increase Norvasc again today, reviewed CBC BMP, wean O2, walking test in a.m. hopefully discharge 03/25 BP better controlled. Patient failed O2 walking test. Discussed with CM and patient/.family regarding O2 at home. Will recheck waking tesr today later. Awaiting hem/onc input. Poss DC later today if cleared by hem/onc Discharge Planning When WBC improved or if cleared for discharge despite neutropenia by hematology DC home with home health , discussed with Sarah Cam MD March 25, 2017 10:53
[2017-03-25] MEDS ORDERED: OXYGENTANK NAS.CANULA (11:29)
[2017-03-25] MEDS ORDERED: AMLO10 PO (11:30)
[2017-03-25] MEDS ORDERED: PERC5TAB12 PO (11:37)
[2017-03-25] MEDS ORDERED: LEVA750T PO (11:37)
--- NOTE | 2017-03-25 11:38 | HHI.FF ---
Face to Face Verification Diagnosis: (1) Seizure disorder (2) Contraindication to deep vein thrombosis (DVT) prophylaxis (3) Spinal stenosis (4) Hypertension (5) Pneumonia (6) Renal insufficiency (7) Dyspnea (8) Brain metastasis (9) Lower extremity weakness (10) Metastatic renal cell carcinoma (11) Hypoxia Physical Therapy Order: Evaluate and Treat Home Health Nursing Order: Medical education Signs/symptoms of disease process Oxygen administration education Medication education-adverse effect Nursing assessment with vital signs I have seen patient Lior Kaminski on 03/25/17. My clinical findings support the need for the requested home health care services because: Ltd mobility - disease progression Patient has SOB I certify that my clinical findings support that this patient is homebound because: Post-op weakness Unsteady gait/balance Sarah Pendleton MD March 25, 2017 11:38
[2017-03-25 14:03] LABS: AUTOMATED NEUTROPHIL # 3.4 TH/MM3 (1.8-7.7); BASOPHIL % 0.2 % (0.0-2.0); EOSINOPHIL % 0.9 % (0.0-4.0); HEMATOCRIT 30.9 % (39.0-51.0); HEMO FLAGS AUTO DIFF; LYMPH % 10.8 % (9.0-44.0); LYMPHOCYTE # 0.4 TH/MM3 (1.0-4.8); MEAN CELL VOLUME 83.3 FL (80.0-100.0); MEAN CORPUSCULAR HEMOGLOBIN 29.3 PG (27.0-34.0); MEAN CORPUSCULAR HGB CONC 35.2 % (32.0-36.0); MONO % 2.6 % (0.0-8.0); NEUT % 85.5 % (16.0-70.0); PLATELET COUNT 192 TH/MM3 (150-450); RED BLOOD COUNT 3.71 MIL/MM3 (4.50-5.90); RED CELL DISTRIBUTION WIDTH 20.7 % (11.6-17.2)
[2017-03-25 14:46] LABS: BANDS 16 % (0-6); EOSINOPHILS 2 % (0-4); MYELOCYTES 4 % (0-0); NEUTROPHIL # MANUAL DIFF 3.2 TH/MM3 (1.8-7.7); POLYS (SEG NEUTROPHILS) 60 % (16-70); WBC DIFF SAMPLE 100
[2017-03-25 14:47] LABS: PLATELET ESTIMATE SMEAR NORMAL (NORMAL); PLATELET MORPHOLOGY NORMAL (NORMAL); SCAN/DIFF FINAL DIFF MANUAL
--- NOTE | 2017-04-21 14:24 | HHI.DS ---
Discharge Summary Admission Date Mar 20, 2017 at 22:29 Discharge Date: Apr 25, 2017 Admitting Diagnosis shortness of breath/hypoxia/pneumonia/severe sepsis (1) Severe sepsis ICD Code: A41.9 Diagnosis: Principal (2) Pneumonia ICD Code: J18.9 Diagnosis: Principal (3) Dyspnea ICD Code: R06.00 Diagnosis: Principal (4) Hypoxia ICD Code: R09.02 Diagnosis: Principal (5) Metastatic renal cell carcinoma ICD Code: C64.9 Diagnosis: Secondary (6) Brain metastasis ICD Code: C79.31 Diagnosis: Secondary (7) Fatigue ICD Code: R53.83 Diagnosis: Secondary (8) Hypertension ICD Code: I10 Diagnosis: Secondary (9) Coronary artery disease ICD Code: I25.10 Diagnosis: Secondary Procedures none Brief History - From Admission 66 y/o man s/p diagnosis of renal cell carcinoma 3 years ago with subsequent recognition of lung and brain mets. Now undergoing brain irradiation. Has deteriorated to where he falls frequently. + fevers, SOB. Presents tonight with dehydration, hypotension, hyponatremia, hyperkalemia, and extreme lethargy. Imaging Last Impressions Chest X-Ray 03/22/17 0600 Signed Impressions: Service Date/Time: Wednesday, March 22, 2017 05:10 - CONCLUSION: 1. Bibasilar atelectasis versus pneumonia. Norman Law MD Ribs X-Ray 03/20/172033 Signed Impressions: Service Date/Time: Monday, March 20, 2017 21:33 - CONCLUSION: No definite displaced rib fractures and slight worsening parenchymal process in the lungs. Nallely To MD PE at Discharge GENERAL: Pleasant 66 yo male, appears in nad. SKIN: Warm and dry. HEAD: Atraumatic. Normocephalic. EYES: Pupils equal and round. No scleral icterus. No injection or drainage. ENT: No nasal bleeding or discharge. Mucous membranes pink and moist. NECK: Trachea midline. No JVD. CARDIOVASCULAR: Regular rate and rhythm. RESPIRATORY: No accessory muscle use. Clear to auscultation. Breath sounds equal bilaterally. GASTROINTESTINAL: Abdomen soft, non-tender, nondistended. Hepatic and splenic margins not palpable. MUSCULOSKELETAL: Extremities without clubbing, cyanosis, or edema. No obvious deformities. NEUROLOGICAL: Awake and alert. No obvious cranial nerve deficits. Motor grossly within normal limits. Five out of 5 muscle strength in the arms and legs. Normal speech. PSYCHIATRIC: Appropriate mood and affect; insight and judgment normal. Hospital Course 66 y/o man s/p diagnosis of renal cell carcinoma 3 years ago with subsequent recognition of lung and brain mets. Now undergoing brain irradiation. Has deteriorated to where he falls frequently. + fevers, SOB. Presents tonight with dehydration, hypotension, hyponatremia, hyperkalemia, and extreme lethargy. Patient witrh hypoxemic respiratory failure on presentation, widely metastatic renal cell CA. Treated with abx, steroids taperred down by hem/onc. DC home with home health in stable condition poor prognosis. 1. Hypoxemic Respiratory Failure. 2. Widely metastatic renal cell carcinoma. 3. Severe dehydration. 4. Frequent falls. 5. Diffuse bilateral pulmonary interstitial infiltrates - possible lymphangitic spread? 6. Fever. Sepsis. 7. Progressive neutropenia 8. Hypertension Continue iv antibiotic for pneumonia, will notify hematology about acute progressive neutropenia palliative care consulted Continue O2, DuoNeb, hydration Encourage oral intake and ambulation Plan was to discharge patient however due to worsening neutropenia I would keep him for another day on iv antibiotic, call placed to discuss with hematology regarding neutropenia Continue antihypertensive medication, recently added Norvasc 5/2: We'll add Norvasc to optimize blood pressure, CBC BMP in a.m., reviewed note from oncologist he will follow patient as an outpatient 3: Increase Norvasc again today, reviewed CBC BMP, wean O2, walking test in a.m. hopefully discharge 5 BP better controlled. Patient failed O2 walking test. Discussed with CM and patient/.family regarding O2 at home. Cleared for discharge by hematology, dexametasone tapered , prescription hand written by hem/onc DC home with home health in stable condition, to follow up as OP with PCP and consultants. Pt Condition on Discharge: Stable Discharge Disposition: Disch w/ Home Health Serv Discharge Time: > 30 minutes Discharge Instructions DIET: Follow Instructions for: Heart Healthy Diet Activities you can perform: Regular-No Restrictions Follow up Referrals: Oncology PCP Follow-up New Medications: Bedside Commode (Bedside Commode) 1 Mis Mis 1 EA .ROUTE DIRECTED #1 EA Levofloxacin (Levaquin) 750 Mg Tab 750 MG PO DAILY Infection #7 Ref 0 TAB Oxycodone-Acetaminophen (Percocet) 5-325 mg Tab 1 TAB PO Q4H PRN PAIN #20 Ref 0 TAB Oxygen tank (Oxygen tank) 1 Ea Tank 2 LITER NIXON.CANULA CONTINUOUS Oxygen Concentrator Portable Gaseous 2 L/min via Nasal Cannula Continuous For 99 months HYPOXEMIA PREVENTION #2 CYLINDER Amlodipine (Norvasc) 10 Mg Tab 10 MG PO DAILY Blood Pressure Management #30 TAB Continued Medications: Dexamethasone (Dexamethasone) 4 Mg Tab 4 MG PO TID inflammation Days 21 Ref 0 TAB Levetiracetam (Keppra) 500 Mg Tab 500 MG PO Q12HR #60 TAB Pantoprazole (Pantoprazole) 40 Mg Tab 40 MG PO DAILY #30 TAB Discontinued Medications: Hydrocodone-Acetaminophen (Hydrocodone-Acetaminophen) 5-325 mg Tab 1 TAB PO Q4H PRN PAIN Ref 0 TAB Sarah Pendleton MD Apr 21, 2017 14:24
== END 2017-03-25 16:49 | disposition home health service (06) | DRG 871 ==
LOC: NEPC 20:10 → NEDA 22:29 → HIMW 03-21 00:50 → HOCA 03-21 22:18
PROVIDERS: ADMIT Hospitalist; ATTEND Hospitalist
DX: A41.9 Sepsis, unspecified organism (principal); J18.9 Pneumonia, unspecified organism; G93.6 Cerebral edema; J96.01 Acute respiratory failure with hypoxia; J84.9 Interstitial pulmonary disease, unspecified; D70.9 Neutropenia, unspecified; C78.00 Secondary malignant neoplasm of unspecified lung; C79.31 Secondary malignant neoplasm of brain; E87.1 Hypo-osmolality and hyponatremia; E86.0 Dehydration; Z85.528 Personal history of other malignant neoplasm of kidney; R15.9 Full incontinence of feces; E78.00 Pure hypercholesterolemia, unspecified; F41.9 Anxiety disorder, unspecified; K44.9 Diaphragmatic hernia without obstruction or gangrene; N18.9 Chronic kidney disease, unspecified; I12.9 Hypertensive chronic kidney disease with stage 1 through stage 4 chronic kidney disease, or unspecified chronic kidney disease; Z82.49 Family history of ischemic heart disease and other diseases of the circulatory system; E87.5 Hyperkalemia; I25.10 Atherosclerotic heart disease of native coronary artery without angina pectoris; Z95.5 Presence of coronary angioplasty implant and graft; R29.6 Repeated falls; R19.7 Diarrhea, unspecified; W01.0XXA Fall on same level from slipping, tripping and stumbling without subsequent striking against object, initial encounter; M48.00 Spinal stenosis, site unspecified; M19.90 Unspecified osteoarthritis, unspecified site; Z51.5 Encounter for palliative care
CPT/HCPCS: 36600; 71010; 71101; 80048; 80053; 80202; 81001; 82550; 82552; 82805; 83605; 83735; 83880; 84100; 84155; 84484; 85007; 85025; 85027; 87040; 87086; 87641; 93005; 94150; 94620; 94664; 96365; 96375; J0456; J1650; J2543; J3370; J7030; J7040; J7050; J8540